=== PATIENT | male | born 1955 | race Caucasian/White ===

== ENCOUNTER 2022-03-11 05:50 | Inpatient (IN) | payer OTHER ==
[~2022-03-11] VITALS: Ht 167.6 cm; Wt 50.8 kg
--- NOTE | 2022-03-11 05:58 | NUR ---
RT NOTE LATE ENTRY Pt rec'd trached on [facility] vent on AC mode settings given from fire dept. Pt shows no signs of resp distress or sob. Pt sx'd for thick mod amt of pale yellow secretions. Alarms are set and audible. Ambu bag at bedside. Vent plugged into red outlet. Addendum: 03/11/22 at 0622 by DAVION ELIZALDE RT Amended: Links added.
--- NOTE | 2022-03-11 05:59 | NUR ---
ARIANE FROM [facility] C/O HYPERGLYCEMIA BS OF 500 TAKEN 20 MINS AGO. PT AWAKE AND RESPONSIVE. TRACH DEPENDANT; RT AT PT'S BEDSIDE. VENT SETTINGS AC VT: FIO2 35, VT 45, PEEP +5. GTUBE PEG INTACT. F/C DRAINING URINE. CONNECTED PT TO POX AND MONITOR. SAFETY MEASURES IN PLACE.
--- NOTE | 2022-03-11 06:07 | NUR ---
IV ESTABLISHED LFA #20G S/L PATENT AND INTACT
--- NOTE | 2022-03-11 06:08 | NUR ---
DR. FRANCO GUY AT PT'S BEDSIDE
--- NOTE | 2022-03-11 06:15 | NUR ---
URINE COLLECTED VIA F/C AND SENT TO LAB
--- NOTE | 2022-03-11 06:27 | NUR ---
COVID SWAB SENT TO LAB
--- NOTE | 2022-03-11 06:28 | NUR ---
HEEL EDGE INKER MACHINE AT BEDSIDE
[2022-03-11 06:37] LABS: BASOPHILS # (AUTO) 0.1 K/uL (0.0-0.2); BASOPHILS % (AUTO) 1.2 % (0.0-2.0); HEMATOCRIT 28 % (39-51); HEMOGLOBIN 8.8 g/dL (13.5-17.5); LYMPHOCYTES % (AUTO) 15.5 % (20.0-44.0); MEAN CORPUSCULAR HGB CONC 32 g/dl (31.0-36.0); MEAN CORPUSCULAR VOLUME 95 fL (80-96); MONOCYTES # (AUTO) 0.4 K/uL (0.1-1.30); MONOCYTES % (AUTO) 6.5 % (2.0-12.0); NEUTROPHILS # (AUTO) 4.8 K/uL (1.8-8.9); NEUTROPHILS % (AUTO) 74.8 % (43.0-81.0); PLATELET COUNT (AUTO) 443 K/uL (150-450); RED BLOOD CELL COUNT(AUTO) 2.95 MIL/uL (4.5-6.0); WHITE BLOOD COUNT (AUTO) 6.5 K/uL (4.3-11.0)
--- NOTE | 2022-03-11 06:53 | NUR ---
LAYOUT INSPECTOR AT PT'S BEDSIDE
[2022-03-11 06:58] LABS: ALANINE AMINOTRANSFERASE 53 U/L (12-78); ALBUMIN 2.2 g/dL (3.4-5.0); ALKALINE PHOSPHATASE 146 U/L (46-116); ASPARTATE AMINOTRANSFERASE 33 U/L (15-37); BILIRUBIN,DIRECT 0.3 mg/dL (0.0-0.2); BILIRUBIN,TOTAL 0.7 mg/dL (0.2-1.0); CALCIUM, SERUM 8.5 mg/dL (8.5-10.1); CARBON DIOXIDE 29 mmol/L (21-32); CHLORIDE 104 mmol/L (98-107); CREATININE 1.6 mg/dL (0.6-1.3); POTASSIUM 4.5 mmol/L (3.5-5.1); SODIUM SERUM 136 mmol/L (136-145); TOTAL PROTEIN, SERUM 6.5 g/dL (6.4-8.2); UREA NITROGEN, BLOOD 42 mg/dL (7-18)
--- NOTE | 2022-03-11 07:06 | NUR ---
CRITICAL RESULT BS 357. REPORT RECEIVE FROM [employer].
[2022-03-11 07:07] LABS: GLUCOSE 357 mg/dL (74-106)
--- NOTE | 2022-03-11 07:08 | NUR ---
DR BERG MADE AWARE OF THE RESULT.
[2022-03-11 07:19] LABS: BILIRUBIN,URINE NEGATIVE (NEGATIVE); COLOR,URINE YELLOW (YELLOW); LEUKOCYTE ESTERASE ,URINE NEGATIVE (NEGATIVE); NITRITE, URINE NEGATIVE (NEGATIVE); PROTEIN,URINE 2+ mg/dl (NEGATIVE); UGLUCOSE 2+ mg/dL (NEGATIVE); UROBILINOGEN,URINE 0.2 EU/dL (0.2)
[2022-03-11 07:46] LABS: BACTERIA,URINE Rare /HPF (None Seen); SQUAMOUS EPITHELIAL CELL,UR Moderate /HPF (None Seen); URINE AMORPHOUS PHOSPHATES Moderate /HPF (None Seen); WBC,URINE 0-2 /HPF (0-3)
[2022-03-11] MEDS ORDERED: LORAZEPAM INJ 2 MG/ML VIAL IV ONE ×2 (08:00→13:30)
--- NOTE | 2022-03-11 08:00 | NUR ---
RT AT BEDSIDE; INFORMED RN THAT PT'S RESP RATE IS AT 35-40. DR BERG MADE AWARE W/ ORDER OF ATIVAN 1MG, ORDER IS READ BACK AND VERIFIED.
[2022-03-11] MEDS ORDERED: LORAZEPAM INJ 2 MG/ML VIAL ONE ×2 (08:02→13:07)
[2022-03-11] MEDS ORDERED: FUROSEMIDE 40 MG/4 ML VIAL ONE ×2 (08:09→13:07)
[2022-03-11] MEDS ORDERED: GLYB5TAB7 GT (08:10)
[2022-03-11] MEDS ORDERED: PANT40TA2 GT (08:10)
[2022-03-11] MEDS ORDERED: DILT240T12 GT (08:10)
[2022-03-11] MEDS ORDERED: KRIL1CAP GT (08:10)
[2022-03-11] MEDS ORDERED: IPRA4AER IH (08:10)
[2022-03-11] MEDS ORDERED: ASPI-1169 GT (08:10)
[2022-03-11] MEDS ORDERED: ATOR80TA GT (08:10)
[2022-03-11] MEDS ORDERED: METF-442 GT (08:10)
[2022-03-11] MEDS ORDERED: QUET25TA GT (08:10)
[2022-03-11] MEDS ORDERED: NUT.237L31 GT (08:10)
[2022-03-11] MEDS ORDERED: CARV3.122 GT (08:10)
[2022-03-11] MEDS ORDERED: CLOP75TA15 GT (08:10)
[2022-03-11] MEDS ORDERED: FERR325T23 GT (08:10)
[2022-03-11] MEDS ORDERED: BENA20TA9 GT (08:10)
[2022-03-11] MEDS ORDERED: CHLO473M3 MM (08:10)
[2022-03-11] MEDS ORDERED: AMIO200T5 GT (08:10)
--- NOTE | 2022-03-11 08:16 | NUR ---
RESP RATE CURRENTLT AT 25, NO RESP DISTRESS. TRACH SUCTION DONE PRN, NO ASPIRATE NOTED.
[2022-03-11] MEDS ORDERED: FUROSEMIDE 40 MG/4 ML VIAL IV ONE ×2 (08:30→13:30)
--- NOTE | 2022-03-11 08:45 | NUR ---
MOVE SHEET SUBMITTED.
--- NOTE | 2022-03-11 10:03 | NUR ---
PER ESTHER, AUTH#[id number] TO ADMIT PATIENT
--- NOTE | 2022-03-11 12:34 | NUR ---
[facility] CALLED BUSINESS DATA ANALYST PAGED.
[2022-03-11] MEDS ORDERED: IOHEXOL-350 100 ML VIAL IV ONE (13:22)
[2022-03-11] MEDS ORDERED: IV NS 0.9% 250 ML IV ONE (13:22)
[2022-03-11] MEDS ORDERED: CT SWABBABLE VALVE TRANS SET 1 EA INFUS.SET MC ONE (13:22)
--- NOTE | 2022-03-11 13:52 | NUR ---
CALLED NURSE JANE FOR MIDLINE
--- NOTE | 2022-03-11 15:33 | NUR ---
DASIA FROM [facility] [phone] HAVE NO BED AVAILABLE BUT WILL CONTACT US WHEN ONE IS READY.
--- NOTE | 2022-03-11 15:37 | NUR ---
BED 116-2
--- NOTE | 2022-03-11 16:03 | NUR ---
REPORT GIVEN TO INES ANGELES RN FOR ALEXIS
--- NOTE | 2022-03-11 16:30 | NUR ---
ADMISSION RN NOTES PATIENT RECEIVED VIA GURNEY FROM ED, ALERT BUT NON VERBAL, CAN ONLY UNDERSTAND MALAY. ON VENT SETTING, TOLERATING WELL, FAMILY AT THE BEDSIDE TO TRANSLATE. DENIES ANY PAIN AT THIS MOMENT, NOTED WHEN CLEANING THE PATIENT, PATIENT TRIED PULLING OUT TRACH AND GT, ORDERED BILATERAL WRIST SOFT RESTRAINT, EXPLAINED TO THE FAMILY AT THE BEDSIDE, CONFIRMED UNDERSTANDING. GT NOTED PATENT AND INTACT. NOTED LEFT WRIST NOTED PATENT AND INTACT, FLUSHES WELL. MIDLINE INSERTED AT JACQUES, OK TO USED PER MIDLINE NURSE, FLUSHES WELL. DUE LASIX GIVEN. NOTED BLOOD SUGAR 247 MG/DL. NOTED WITH F/C PATENT AND INTACT, DRAINING CLEAR YELLOW URINE. NOTED OPEN WOUND ON PENIS AREA, SACRUM, UPPER BACK AND LEFT LOWER LEG, WOUND CARE CONSULT PLACED, COVERED WITH MEPILEX. NOTED WITH BLE +2 PITTING EDEMA AND SCROTAL EDEMA. ORIENTED TO THE USE OF CALL LIGHT. BED IN LOWEST POSITION. SAFETY MEASURES IN PLACED. ENDORSED TO AG RUELAS FOR ALEXIS.
--- NOTE | 2022-03-11 16:34 | NUR ---
TRANSFERRED TO BED 116 IN STABLE CONDITION
[2022-03-11] MEDS: FUROSEMIDE 100 MG/10 ML VIAL IV SCH ×2 (18:05→20:59)
[2022-03-11] MEDS ORDERED: DEXTROSE 50%-WATER 50 ML DISP.SYRIN IV PRN (18:30)
--- NOTE | 2022-03-11 18:45 | NUR ---
NISHANT FROM [facility] IS AT CAPACITY AT THIS TIME.
--- NOTE | 2022-03-11 19:30 | NUR ---
RN NOTE PATIENT IN BED, AO X 2-3, NON VERBAL, UNDERSTANDS PERSIAN ONLY, FAMILY AT BEDSIDE. PT IN NO ACUTE DISTRESS, ON TRACH TO MECHANICAL VENT WITH PRESCRIBED SETTINGS, SATURATION AT 97%, SR ON THE MONITOR, HR IS 97. JACQUES MIDLINE PATENT AND FLUSHING WELL. GTUBE IN PLACE, CLAMPED, PATIÑO CATHETER DRAINING TO A CLEAR, YELLOW OUTPUT. SAFETY MEASURES IN PLACE, BED IS LOCKED AND AT LOWEST POSITION, HOB ELEVATED, CALL LIGHT WITHIN REACH OF PATIENT. WILL CONT TO MONITOR AND REASSESS.
[2022-03-11 20:00] VITALS: BP 168/92
[2022-03-11] MEDS: ATORVASTATIN 40 MG TABLET PO SCH (21:57)
--- NOTE | 2022-03-11 22:50 | NUR ---
RN NOTE TELEPHONE CALL FROM NISHANT OF [facility], VERIFIED IF FAMILY STILL WANTS TO BE TRANSFERRED, ADVISED HER YES PER ANGELIQUE, PT'S DAUGHTER. NIHSANT SAID TRANSFER MIGHT NOT HAPPEN TONIGHT, BUT OBTAINED PRIMARY MD'S CONTACT FOR PEER TO PEER.
[2022-03-11] MEDS: GLUCERNA 1.5 1,000 ML BOTTLE GT SCH (23:05)
[2022-03-12] VITALS: BP 144/90
[2022-03-12] MEDS: HYDROCODONE/APAP 5/325MG TABLET PO PRN (00:45)
[2022-03-12] MEDS: FUROSEMIDE 100 MG/10 ML VIAL IV SCH (00:46)
[2022-03-12] MEDS: BLOOD SUGAR DIAGNOSTIC 1 EACH STRIP IN SCH ×4 (00:56→17:06)
[2022-03-12] MEDS: INSULIN REGULAR, HUMAN 100 UNIT/ML 3 ML VIAL SQ PRN ×4 (00:57→17:07)
[2022-03-12 04:00] VITALS: BP 149/77
[2022-03-12 07:18] LABS: BASOPHILS # (AUTO) 0.1 K/uL (0.0-0.2); BASOPHILS % (AUTO) 1.1 % (0.0-2.0); EOSINOPHILS % (AUTO) 0.9 % (0.0-6.0); HEMATOCRIT 25 % (39-51); HEMOGLOBIN 8.3 g/dL (13.5-17.5); LYMPHOCYTES # (AUTO) 1.5 K/uL (0.8-4.8); LYMPHOCYTES % (AUTO) 15.1 % (20.0-44.0); MEAN CORPUSCULAR HGB CONC 33 g/dl (31.0-36.0); MEAN CORPUSCULAR VOLUME 92 fL (80-96); MONOCYTES # (AUTO) 0.8 K/uL (0.1-1.30); MONOCYTES % (AUTO) 8.3 % (2.0-12.0); NEUTROPHILS # (AUTO) 7.4 K/uL (1.8-8.9); NEUTROPHILS % (AUTO) 74.6 % (43.0-81.0); PLATELET COUNT (AUTO) 444 K/uL (150-450); RED BLOOD CELL COUNT(AUTO) 2.72 MIL/uL (4.5-6.0); WHITE BLOOD COUNT (AUTO) 9.9 K/uL (4.3-11.0)
[2022-03-12] MEDS ORDERED: PANTOPRAZOLE 40 MG TABLET.DR PO SCH ×2 (07:30→09:00)
[2022-03-12 08:00] VITALS: BP 152/108
[2022-03-12 08:04] LABS: CALCIUM, SERUM 9.3 mg/dL (8.5-10.1); CREATININE 1.7 mg/dL (0.6-1.3); MAGNESIUM 1.7 mg/dL (1.8-2.4); POTASSIUM 3.2 mmol/L (3.5-5.1)
[2022-03-12] MEDS: ASPIRIN 81 MG TAB.CHEW GT SCH (08:48)
[2022-03-12] MEDS: CHLORHEXIDINE GLUCONATE 15 ML UDC MM SCH ×2 (08:48→16:44)
[2022-03-12] MEDS: FERROUS SULFATE (325 MG) 325 MG/TAB TABLET GT SCH (08:49)
[2022-03-12] MEDS: CARVEDILOL 3.125 MG TABLET GT SCH ×2 (08:49→16:44)
[2022-03-12] MEDS: DILTIAZEM HCL CD 240 MG PO SCH (08:49)
[2022-03-12] MEDS: AMIODARONE HCL 200 MG TABLET GT SCH (08:49)
[2022-03-12] MEDS: QUETIAPINE FUMARATE 25 MG TABLET GT SCH ×2 (08:49→16:44)
[2022-03-12] MEDS: CLOPIDOGREL BISULFATE 75 MG TABLET GT SCH (08:49)
[2022-03-12] MEDS: glyBURIDE 5 MG TABLET GT SCH ×2 (08:49→16:44)
[2022-03-12] MEDS: Z GUARD REMEDY 4 OZ OINT TP PRN (08:50)
[2022-03-12] MEDS: BENAZEPRIL HCL 20 MG TABLET GT SCH (09:06)
[2022-03-12] MEDS: POTASSIUM CL. PREMIX PERIPHER. 50 ML IV SCH ×3 (10:06→12:20)
[2022-03-12] MEDS ORDERED: IV NS 0.9% 250 ML IV PRN (10:30)
[2022-03-12] MEDS: Magnesium 1GM/D5W 100ML PREMIX 100 ML IV SCH ×2 (10:56→12:20)
[2022-03-12 12:00] VITALS: BP 163/99
[2022-03-12] MEDS: ALBUTEROL FS 2.5 MG/0.5 ML VIAL.NEB NEB SCH ×3 (15:20→23:23)
[2022-03-12] MEDS: IPRATROPIUM NEB FS 0.5 MG/2.5 ML AMPUL.NEB NEB SCH ×3 (15:21→23:23)
[2022-03-12] MEDS ORDERED: IPRATROPIUM NEB FS 0.5 MG/2.5 ML AMPUL.NEB NEB PRN (15:30)
[2022-03-12] MEDS ORDERED: ALBUTEROL FS 2.5 MG/0.5 ML VIAL.NEB NEB PRN (15:30)
[2022-03-12 16:00] VITALS: BP 166/94
--- NOTE | 2022-03-12 19:20 | NUR ---
RN NOTE PATIENT IN BED, AO X 2-3, NON VERBAL, UNDERSTANDS TURKMEN ONLY, FAMILY AT BEDSIDE. PT IN NO ACUTE DISTRESS, ON TRACH TO MECHANICAL VENT WITH PRESCRIBED SETTINGS, SATURATION AT 100%, SR ON THE MONITOR, HR IS 95. JACQUES MIDLINE PATENT AND FLUSHING WELL. GTUBE IN PLACE, NO RESIDUAL, RESUMED TUBE FEEDING OF GLUCERNA AT 35 ML/HR. PATIÑO CATHETER DRAINING TO A CLEAR, YELLOW OUTPUT. SAFETY MEASURES IN PLACE, BED IS LOCKED AND AT LOWEST POSITION, HOB ELEVATED, CALL LIGHT WITHIN REACH OF PATIENT. WILL CONT TO MONITOR AND REASSESS.
--- NOTE | 2022-03-12 19:55 | NUR ---
RN NOTE FAMILY REQUESTING FOR MEDS TO CALM PATIENT DOWN AND HELP HIM SLEEP AT NIGHT PATIENT GETS RESTLESS AND TRIES TO PULL OUT TRACH AND GTUBE. DR MENJIVAR NOTIFIED, ORDER RECEIVED FOR SEROQUEL 25 MG HS.
[2022-03-12 20:00] VITALS: BP 156/94
[2022-03-12] MEDS: ATORVASTATIN 40 MG TABLET PO SCH (22:07)
[2022-03-12] MEDS: QUETIAPINE FUMARATE 25 MG TABLET PO SCH (22:07)
[2022-03-12] MEDS: GLUCERNA 1.5 1,000 ML BOTTLE GT SCH (22:22)
[2022-03-13] VITALS: BP 145/79
[2022-03-13] MEDS: BLOOD SUGAR DIAGNOSTIC 1 EACH STRIP IN SCH ×4 (00:32→17:46)
[2022-03-13] MEDS: INSULIN REGULAR, HUMAN 100 UNIT/ML 3 ML VIAL SQ PRN ×4 (00:34→18:29)
[2022-03-13] MEDS: ALBUTEROL FS 2.5 MG/0.5 ML VIAL.NEB NEB SCH ×5 (03:44→19:42)
[2022-03-13] MEDS: IPRATROPIUM NEB FS 0.5 MG/2.5 ML AMPUL.NEB NEB SCH ×5 (03:44→19:42)
[2022-03-13 04:00] VITALS: BP 147/82
--- NOTE | 2022-03-13 07:15 | NUR ---
RN NOTE PATIENT IN BED, AO X 2-3, NON VERBAL, UNDERSTANDS ESTONIAN . PT IN NO ACUTE DISTRESS, ON TRACH TO MECHANICAL VENT WITH PRESCRIBED SETTINGS, SATURATION AT 100%, SR ON THE MONITOR, HR IS 95. JACQUES MIDLINE PATENT AND FLUSHING WELL. GTUBE IN PLACE, NO RESIDUAL, RESUMED TUBE FEEDING OF GLUCERNA AT 35 ML/HR. PATIÑO CATHETER DRAINING TO A CLEAR, YELLOW OUTPUT. SAFETY MEASURES IN PLACE, BED IS LOCKED AND AT LOWEST POSITION, HOB ELEVATED, CALL LIGHT WITHIN REACH OF PATIENT. WILL CONT TO MONITOR AND REASSESS.
[2022-03-13 07:59] LABS: BASOPHILS # (AUTO) 0.1 K/uL (0.0-0.2); BASOPHILS % (AUTO) 0.5 % (0.0-2.0); EOSINOPHILS % (AUTO) 0.5 % (0.0-6.0); HEMATOCRIT 25 % (39-51); HEMOGLOBIN 8.1 g/dL (13.5-17.5); LYMPHOCYTES # (AUTO) 1.5 K/uL (0.8-4.8); MEAN CORPUSCULAR HGB CONC 33 g/dl (31.0-36.0); MEAN CORPUSCULAR VOLUME 93 fL (80-96); MONOCYTES # (AUTO) 0.6 K/uL (0.1-1.30); MONOCYTES % (AUTO) 5.6 % (2.0-12.0); NEUTROPHILS # (AUTO) 8.7 K/uL (1.8-8.9); NEUTROPHILS % (AUTO) 79.4 % (43.0-81.0); PLATELET COUNT (AUTO) 451 K/uL (150-450); RED BLOOD CELL COUNT(AUTO) 2.68 MIL/uL (4.5-6.0); WHITE BLOOD COUNT (AUTO) 10.9 K/uL (4.3-11.0)
[2022-03-13 08:00] VITALS: BP 139/88
[2022-03-13 08:26] LABS: ALBUMIN 2.6 g/dL (3.4-5.0); BILIRUBIN,TOTAL 0.6 mg/dL (0.2-1.0); CALCIUM, SERUM 9.1 mg/dL (8.5-10.1); CREATININE 1.9 mg/dL (0.6-1.3); MAGNESIUM 2.2 mg/dL (1.8-2.4); PHOSPHORUS 4.3 mg/dL (2.5-4.9); POTASSIUM 3.1 mmol/L (3.5-5.1); TOTAL PROTEIN, SERUM 6.7 g/dL (6.4-8.2)
[2022-03-13] MEDS: FERROUS SULFATE (325 MG) 325 MG/TAB TABLET GT SCH (09:24)
[2022-03-13] MEDS: glyBURIDE 5 MG TABLET GT SCH ×2 (09:24→17:45)
[2022-03-13] MEDS: ASPIRIN 81 MG TAB.CHEW GT SCH (09:24)
[2022-03-13] MEDS: DILTIAZEM HCL CD 240 MG PO SCH (09:25)
[2022-03-13] MEDS: AMIODARONE HCL 200 MG TABLET GT SCH (09:25)
[2022-03-13] MEDS: BENAZEPRIL HCL 20 MG TABLET GT SCH (09:26)
[2022-03-13] MEDS: CARVEDILOL 3.125 MG TABLET GT SCH ×2 (09:26→17:45)
[2022-03-13] MEDS: CLOPIDOGREL BISULFATE 75 MG TABLET GT SCH (09:26)
[2022-03-13] MEDS: QUETIAPINE FUMARATE 25 MG TABLET GT SCH ×2 (09:27→17:46)
[2022-03-13] MEDS: CHLORHEXIDINE GLUCONATE 15 ML UDC MM SCH ×2 (09:28→17:46)
[2022-03-13] MEDS: FUROSEMIDE 40 MG/4 ML VIAL IV SCH ×2 (09:34→17:46)
[2022-03-13] MEDS: PANTOPRAZOLE 40 MG/PACK PACK GT SCH (09:35)
[2022-03-13] MEDS: POTASSIUM CL. PREMIX PERIPHER. 50 ML IV SCH ×3 (10:32→12:48)
[2022-03-13 12:00] VITALS: BP 137/83
[2022-03-13 16:00] VITALS: BP 123/71
--- NOTE | 2022-03-13 19:36 | NUR ---
RN NOTE PATIENT IN BED, AO X 2-3, NON VERBAL, . PT IN NO ACUTE DISTRESS, ON TRACH TO MECHANICAL VENT WITH PRESCRIBED SETTINGS, SATURATION AT 100%, SR ON THE MONITOR, HR IS 95. JACQUES MIDLINE PATENT AND FLUSHING WELL. GTUBE IN PLACE, NO RESIDUAL, TUBE FEEDING HELD AT 1700. PATIÑO CATHETER DRAINING TO A CLEAR, YELLOW OUTPUT. SAFETY MEASURES IN PLACE, BED IS LOCKED AND AT LOWEST POSITION, HOB ELEVATED, CALL LIGHT WITHIN REACH OF PATIENT.ENDORSED TO FIELD SERVICE COORDINATOR RN FOR ALEXIS
[2022-03-13 20:00] VITALS: BP 123/75
[2022-03-13] MEDS: ATORVASTATIN 40 MG TABLET PO SCH (21:57)
[2022-03-13] MEDS: QUETIAPINE FUMARATE 25 MG TABLET PO SCH (21:57)
--- NOTE | 2022-03-13 23:25 | NUR ---
ELEMENTARY ART TEACHER OPENING NOTE PT RECEIVED IN BED, AWAKE, NON-VERBAL, BUT ABLE TO MOUTH WORDS; MAINLY PALESTINIAN-SPEAKING. PT ON TRACH WITH SHILEY #8, AC 20, TV 450, FIO2 35%, PEEP 5; WITH CURRENT O2SAT OF 100%; NO S/S OF RESP DISTRESS, NO SOB OR COUGH, NON-LABORED AND EQUAL BREATHING. PT ATTACHED TO EXTERNAL MONITOR, SR WITH HR OF 83. PATIÑO INTACT AND PATENT, DRAINING CLEAR AND YELLOW URINE. PT NOTED TO HAVE BILATERAL SOFT WRIST RESTRAINTS; NO SIGNS OF IMPAIRED SKIN OR CIRCULATION; WILL PROVIDE PT WITH RELEASE OF RESTRAINTS AND HYGIENE. JACQUES MIDLINE INTACT AND PATENT, FLUSHES EASILY WITH NO RESISTANCE, NO MEDS/FLUIDS INFUSING THROUGH IT. BED IN LOWEST POSITION, CALL LIGHT WITHIN REACH, SIDE RAILS UP X3. WILL CONTINUE TO MONITOR THROUGHOUT THE NIGHT.
[2022-03-14] VITALS: BP 127/69
[2022-03-14] MEDS: IPRATROPIUM NEB FS 0.5 MG/2.5 ML AMPUL.NEB NEB SCH ×7 (00:02→23:09)
[2022-03-14] MEDS: ALBUTEROL FS 2.5 MG/0.5 ML VIAL.NEB NEB SCH ×7 (00:02→23:09)
[2022-03-14] MEDS: BLOOD SUGAR DIAGNOSTIC 1 EACH STRIP IN SCH ×4 (00:29→18:19)
[2022-03-14] MEDS: INSULIN REGULAR, HUMAN 100 UNIT/ML 3 ML VIAL SQ PRN ×4 (00:32→18:21)
[2022-03-14 04:00] VITALS: BP 139/85
[2022-03-14 06:42] LABS: BASOPHILS # (AUTO) 0.1 K/uL (0.0-0.2); BASOPHILS % (AUTO) 0.7 % (0.0-2.0); EOSINOPHILS % (AUTO) 2.9 % (0.0-6.0); HEMATOCRIT 23 % (39-51); HEMOGLOBIN 7.6 g/dL (13.5-17.5); LYMPHOCYTES # (AUTO) 1.2 K/uL (0.8-4.8); LYMPHOCYTES % (AUTO) 13.6 % (20.0-44.0); MEAN CORPUSCULAR HGB CONC 33 g/dl (31.0-36.0); MEAN CORPUSCULAR VOLUME 94 fL (80-96); MONOCYTES # (AUTO) 0.6 K/uL (0.1-1.30); MONOCYTES % (AUTO) 7.1 % (2.0-12.0); NEUTROPHILS # (AUTO) 6.6 K/uL (1.8-8.9); NEUTROPHILS % (AUTO) 75.7 % (43.0-81.0); PLATELET COUNT (AUTO) 296 K/uL (150-450); RED BLOOD CELL COUNT(AUTO) 2.47 MIL/uL (4.5-6.0); WHITE BLOOD COUNT (AUTO) 8.7 K/uL (4.3-11.0)
--- NOTE | 2022-03-14 06:50 | NUR ---
EMPLOYMENT PROGRAM REPRESENTATIVE CLOSING NOTE PT REMAINS IN BED, ASLEEP BUT EASILY AROUSABLE, NON-VERBAL, BUT ABLE TO MOUTH WORDS AND NOD HEAD TO YES OR NO QUESTIONS; MAINLY AFGHAN-SPEAKING. PT REMAINS ON SAME VENT SETTINGS; TOLERATED VENT SETTINGS WELL WITH O2SAT RANGING FROM 97%- 100%; NO S/S OF RESP DISTRESS, NO SOB OR COUGH, NON-LABORED AND EQUAL BREATHING. PT ATTACHED TO EXTERNAL MONITOR, SR WITH HR RANGING FROM 81- 83. PATIÑO INTACT AND PATENT, DRAINING CLEAR AND YELLOW URINE. BILATERAL SOFT WRIST RESTRAINTS REMAIN IN PLACE; NO SIGNS OF IMPAIRED SKIN OR CIRCULATION; PROVIDED PT WITH RELEASE OF RESTRAINTS AND HYGIENE. JACQUES MIDLINE INTACT AND PATENT, FLUSHES EASILY WITH NO RESISTANCE, NO MEDS/FLUIDS INFUSING THROUGH IT. ALL DUE MEDS ADMINISTERED DURING THE NIGHT. BED IN LOWEST POSITION, CALL LIGHT WITHIN REACH, SIDE RAILS UP X3. WILL ENDORSE TO DAYSHIFT NURSE TO CONTINUE CARE.
[2022-03-14 06:56] LABS: ALBUMIN 2.4 g/dL (3.4-5.0); BILIRUBIN,TOTAL 0.8 mg/dL (0.2-1.0); CALCIUM, SERUM 8.6 mg/dL (8.5-10.1); CREATININE 1.7 mg/dL (0.6-1.3); MAGNESIUM 2.2 mg/dL (1.8-2.4); PHOSPHORUS 4.7 mg/dL (2.5-4.9); POTASSIUM 3.8 mmol/L (3.5-5.1); TOTAL PROTEIN, SERUM 6.4 g/dL (6.4-8.2)
--- NOTE | 2022-03-14 07:00 | NUR ---
CENTRIFUGAL DRIER OPERATOR OPENING NOTE PT RECEIVED IN BED, AWAKE, NON-VERBAL, BUT ABLE TO MOUTH WORDS; MAINLY PRYDEINIG-SPEAKING. PT ON TRACH WITH SHILEY #8, AC 20, TV 450, FIO2 35%, PEEP 5; WITH CURRENT O2SAT OF 100%; NO S/S OF RESP DISTRESS, NO SOB OR COUGH, NON-LABORED AND EQUAL BREATHING. PT ATTACHED TO EXTERNAL MONITOR, SR WITH HR OF 77 . PATIÑO INTACT AND PATENT, DRAINING CLEAR AND YELLOW URINE. PT NOTED TO HAVE BILATERAL SOFT WRIST RESTRAINTS; NO SIGNS OF IMPAIRED SKIN OR CIRCULATION; WILL PROVIDE PT WITH RELEASE OF RESTRAINTS AND HYGIENE. JACQUES MIDLINE INTACT AND PATENT, FLUSHES EASILY WITH NO RESISTANCE,. BED IN LOWEST POSITION, CALL LIGHT WITHIN REACH, SIDE RAILS UP X3. WILL CONTINUE TO MONITOR THROUGHOUT
[2022-03-14 08:00] VITALS: BP 136/73
[2022-03-14] MEDS: CHLORHEXIDINE GLUCONATE 15 ML UDC MM SCH ×2 (10:01→17:08)
[2022-03-14] MEDS: ASPIRIN 81 MG TAB.CHEW GT SCH (10:02)
[2022-03-14] MEDS: glyBURIDE 5 MG TABLET GT SCH ×2 (10:02→17:46)
[2022-03-14] MEDS: FUROSEMIDE 40 MG/4 ML VIAL IV SCH ×2 (10:02→17:05)
[2022-03-14] MEDS: AMIODARONE HCL 200 MG TABLET GT SCH (10:02)
[2022-03-14] MEDS: PANTOPRAZOLE 40 MG/PACK PACK GT SCH (10:02)
[2022-03-14] MEDS: DILTIAZEM HCL CD 240 MG PO SCH (10:03)
[2022-03-14] MEDS: FERROUS SULFATE (325 MG) 325 MG/TAB TABLET GT SCH (10:03)
[2022-03-14] MEDS: BENAZEPRIL HCL 20 MG TABLET GT SCH (10:03)
[2022-03-14] MEDS: QUETIAPINE FUMARATE 25 MG TABLET GT SCH ×2 (10:04→17:08)
[2022-03-14] MEDS: CLOPIDOGREL BISULFATE 75 MG TABLET GT SCH (10:04)
[2022-03-14] MEDS: CARVEDILOL 3.125 MG TABLET GT SCH ×2 (10:04→17:07)
--- NOTE | 2022-03-14 11:36 | NUR ---
WOUND CARE CONSULT: PT PRESENTS WITH MULTIPLE WOUNDS INCLUDING PENIS, RT GROIN CLOSED INCISION WITH SOME WEEPING, SACRAL AND BACK UNSTAGEABLE PRESSURE ULCERS AND LEFT LOWER LEG DRY WOUND, ALL PRESENT ON ADMISSION.DR ANNE CALLED FOR SURGICAL CONSULT. RECOMMENDATIONS MADE FOR SKIN PROTECTION AND DISCUSSED WITH NURSING STAFF. MD IN AGREEMENT WITH PLAN OF CARE.
[2022-03-14 12:00] VITALS: BP 126/74
[2022-03-14] MEDS: THERAHONEY GEL 1.5 OZ TUBE TP SCH (15:50)
[2022-03-14 16:00] VITALS: BP 123/76
[2022-03-14] MEDS: GLUCERNA 1.5 1,000 ML BOTTLE GT SCH (18:19)
--- NOTE | 2022-03-14 19:10 | NUR ---
RN NOTE PATIENT IN BED, AO X 2-3, MOUTH WORD, . PT IN NO ACUTE DISTRESS, ON TRACH TO MECHANICAL VENT WITH PRESCRIBED SETTINGS, SATURATION AT 100%, SR ON THE MONITOR, JACQUES MIDLINE PATENT AND FLUSHING WELL. GTUBE IN PLACE, NO RESIDUAL, GT GLUCERNA RUNNING 55 ML/HR CONTINUOUS. PATIÑO CATHETER DRAINING TO A CLEAR, YELLOW OUTPUT. SAFETY MEASURES IN PLACE, BED IS LOCKED AND AT LOWEST POSITION, HOB ELEVATED, CALL LIGHT WITHIN REACH OF PATIENT.CONTINUE BILATERAL SOFT RESTRAIN, SKIN AND CIRCULATION CHECKED WITHIN NORMAL. ENDORSED TO SINGLE NEEDLE TUFTING MACHINE OPERATOR RN FOR ALEXIS
--- NOTE | 2022-03-14 19:25 | NUR ---
LIFESTYLE BLOCK FARMER OPEN NOTE: ALERT AND ORIENTED TO NAME. REORIENTED TO TIME AND PLACE. MOUTHS WORDS. TRACH WITH VENT AT PRESCRIBED SETTINGS. GT IN PLACE PATENT. LEFT UPPER ARM MIDLINE IN PLACE. NO S/S OF COMPLICATIONS. ON TELE MONITOR WITH A READING OF SINUS RHYTHM. BILATERAL SOFT WRIST RESTRAINTS IN PLACE SKIN IS WITHIN NORMAL, CIRCULATION WITHIN NORMAL. WOUNDS WITH CLEAN DRESSINGS ON. NO S/S OF COMPLICATIONS. HOB ELEVATED SEMI FOWLERS POSITION, BILATERAL HALF SIDE RAILS UPX2. BED IS LOCKED, IN LOW POSITION, EXIT ALARM ON. CALL LIGHT IN REACH.
[2022-03-14] MEDS: ATORVASTATIN 40 MG TABLET PO SCH (22:31)
[2022-03-14] MEDS: QUETIAPINE FUMARATE 25 MG TABLET PO SCH (22:31)
[2022-03-15] MEDS: BLOOD SUGAR DIAGNOSTIC 1 EACH STRIP IN SCH ×4 (00:28→17:26)
[2022-03-15] MEDS: INSULIN REGULAR, HUMAN 100 UNIT/ML 3 ML VIAL SQ PRN ×4 (00:34→17:25)
[2022-03-15 01:11] VITALS: BP 129/69
[2022-03-15 04:00] VITALS: BP 143/76
[2022-03-15] MEDS: ALBUTEROL FS 2.5 MG/0.5 ML VIAL.NEB NEB SCH ×6 (04:07→23:45)
[2022-03-15] MEDS: IPRATROPIUM NEB FS 0.5 MG/2.5 ML AMPUL.NEB NEB SCH ×6 (04:07→23:45)
[2022-03-15] MEDS ORDERED: SILVER NITRATE APPLICATOR 1 EA BOX TP PRN (06:00)
[2022-03-15] MEDS ORDERED: LIDOCAINE 1%-EPI 1:100,000 50 ML VIAL IJ ONE (06:00)
--- NOTE | 2022-03-15 06:50 | NUR ---
GI TECHNICIAN CLOSING NOTE: ALERT AND ORIENTED TO NAME. REORIENTED TO TIME AND PLACE. MOUTHS WORDS. TRACH WITH VENT AT PRESCRIBED SETTINGS. GT IN PLACE PATENT. LEFT UPPER ARM MIDLINE IN PLACE. NO S/S OF COMPLICATIONS. ON TELE MONITOR WITH A READING OF SINUS RHYTHM. BILATERAL SOFT WRIST RESTRAINTS IN PLACE SKIN IS WITHIN NORMAL, CIRCULATION WITHIN NORMAL. WOUNDS WITH CLEAN DRESSINGS ON. NO S/S OF COMPLICATIONS. HOB ELEVATED SEMI FOWLERS POSITION, BILATERAL HALF SIDE RAILS UPX2. BED IS LOCKED, IN LOW POSITION, EXIT ALARM ON. CALL LIGHT IN REACH. DENIES PAIN OR DISCOMFORT.
[2022-03-15 07:33] LABS: BASOPHILS % (AUTO) 0.4 % (0.0-2.0); EOSINOPHILS % (AUTO) 2.6 % (0.0-6.0); HEMATOCRIT 26 % (39-51); HEMOGLOBIN 8.2 g/dL (13.5-17.5); LYMPHOCYTES # (AUTO) 1.1 K/uL (0.8-4.8); LYMPHOCYTES % (AUTO) 13.6 % (20.0-44.0); MEAN CORPUSCULAR HGB CONC 32 g/dl (31.0-36.0); MEAN CORPUSCULAR VOLUME 94 fL (80-96); MONOCYTES # (AUTO) 0.5 K/uL (0.1-1.30); MONOCYTES % (AUTO) 6.3 % (2.0-12.0); NEUTROPHILS # (AUTO) 6.2 K/uL (1.8-8.9); NEUTROPHILS % (AUTO) 77.1 % (43.0-81.0); PLATELET COUNT (AUTO) 358 K/uL (150-450); RED BLOOD CELL COUNT(AUTO) 2.73 MIL/uL (4.5-6.0)
[2022-03-15 07:54] LABS: ALBUMIN 2.6 g/dL (3.4-5.0); BILIRUBIN,TOTAL 0.6 mg/dL (0.2-1.0); CALCIUM, SERUM 8.8 mg/dL (8.5-10.1); CREATININE 1.8 mg/dL (0.6-1.3); MAGNESIUM 1.8 mg/dL (1.8-2.4); PHOSPHORUS 3.5 mg/dL (2.5-4.9); TOTAL PROTEIN, SERUM 6.7 g/dL (6.4-8.2)
[2022-03-15 08:00] VITALS: BP 151/84
--- NOTE | 2022-03-15 08:10 | NUR ---
RN OPENING NOTE: ALERT AND ORIENTED TO NAME. REORIENTED TO TIME AND PLACE. MOUTHS WORDS. TRACH WITH VENT AT PRESCRIBED SETTINGS. GT IN PLACE PATENT. LEFT UPPER ARM MIDLINE IN PLACE. NO S/S OF COMPLICATIONS. ON TELE MONITOR. BILATERAL SOFT WRIST RESTRAINTS IN PLACE SKIN IS WITHIN NORMAL, CIRCULATION WITHIN NORMAL. WOUNDS WITH CLEAN DRESSINGS ON. NO S/S OF COMPLICATIONS. HOB ELEVATED SEMI FOWLERS POSITION, BILATERAL HALF SIDE RAILS UPX2. BED IS LOCKED, IN LOW POSITION, EXIT ALARM ON.
[2022-03-15 08:16] LABS: POTASSIUM 2.8 mmol/L (3.5-5.1)
[2022-03-15] MEDS: ASPIRIN 81 MG TAB.CHEW GT SCH (08:24)
[2022-03-15] MEDS: QUETIAPINE FUMARATE 25 MG TABLET GT SCH ×2 (08:24→16:18)
[2022-03-15] MEDS: PANTOPRAZOLE 40 MG/PACK PACK GT SCH (08:24)
[2022-03-15] MEDS: CHLORHEXIDINE GLUCONATE 15 ML UDC MM SCH ×2 (08:24→16:18)
[2022-03-15] MEDS: FERROUS SULFATE (325 MG) 325 MG/TAB TABLET GT SCH (08:24)
[2022-03-15] MEDS: DILTIAZEM HCL CD 240 MG PO SCH (08:25)
[2022-03-15] MEDS: CARVEDILOL 3.125 MG TABLET GT SCH ×2 (08:25→16:18)
[2022-03-15] MEDS: FUROSEMIDE 40 MG/4 ML VIAL IV SCH ×2 (08:25→16:18)
[2022-03-15] MEDS: glyBURIDE 5 MG TABLET GT SCH ×2 (08:25→16:18)
[2022-03-15] MEDS: BENAZEPRIL HCL 20 MG TABLET GT SCH (08:26)
[2022-03-15] MEDS: THERAHONEY GEL 1.5 OZ TUBE TP SCH (08:26)
[2022-03-15] MEDS: CLOPIDOGREL BISULFATE 75 MG TABLET GT SCH (08:26)
[2022-03-15] MEDS: AMIODARONE HCL 200 MG TABLET GT SCH (08:26)
--- NOTE | 2022-03-15 08:30 | NUR ---
RN NOTE RECEIVED CRITICAL 2.[address] CURIEL RECEIVED ORDER FOR 20MEQ POTASSIUM IV. ORDERS PLACED
[2022-03-15] MEDS: POTASSIUM CHLORIDE 10 MEQ/50 ML PREMIXED IVPB FOR PERIPHERAL LINE IV SCH ×2 (09:51→10:59)
[2022-03-15] MEDS ORDERED: POTASSIUM CHLORIDE 20 MEQ POWDER PACKET GT ONE (11:00)
[2022-03-15] MEDS ORDERED: POTASSIUM CHLORIDE 20 MEQ POWDER PACKET PO ONE (11:00)
--- NOTE | 2022-03-15 11:30 | NUR ---
RN NOTE INFORMED DR HEALY REGARDING PLATELET COUNT 23. RECEIVED ORDER FOR 1 PLATELET TRANSFUSION. ORDERS PLACED
[2022-03-15 12:00] VITALS: BP 121/70
[2022-03-15] MEDS: POTASSIUM CL. PREMIX PERIPHER. 50 ML IV SCH ×2 (12:36→13:40)
[2022-03-15 16:00] VITALS: BP 144/84
[2022-03-15] MEDS: GLUCERNA 1.5 1,000 ML BOTTLE GT SCH (16:28)
--- NOTE | 2022-03-15 18:44 | NUR ---
SUPERVISOR FACEPIECE LINE CLOSING NOTE: ALERT AND ORIENTED TO NAME. MOUTHS WORDS. TRACH WITH VENT AT PRESCRIBED SETTINGS. GT IN PLACE PATENT. LEFT UPPER ARM MIDLINE IN PLACE. NO S/S OF COMPLICATIONS. ON TELE MONITOR WITH A READING OF SINUS RHYTHM. BILATERAL SOFT WRIST RESTRAINTS IN PLACE SKIN IS WITHIN NORMAL, CIRCULATION WITHIN NORMAL. WOUNDS WITH CLEAN DRESSINGS ON. NO S/S OF COMPLICATIONS. HOB ELEVATED SEMI FOWLERS POSITION, BILATERAL HALF SIDE RAILS UPX2. BED IS LOCKED, IN LOW POSITION, EXIT ALARM ON. CALL LIGHT IN REACH. DENIES PAIN OR DISCOMFORT.
--- NOTE | 2022-03-15 19:40 | NUR ---
MANAGER BUSINESS SYSTEMS OPENING NOTE: RECEIVED PT ALERT AND ORIENTED X1. MOUTHS WORDS. TRACH WITH VENT AT PRESCRIBED SETTINGS. GT IN PLACE PATENT. LEFT UPPER ARM MIDLINE IN PLACE. NO S/S OF COMPLICATIONS. ON TELE MONITOR. BILATERAL SOFT WRIST RESTRAINTS IN PLACE SKIN IS WITHIN NORMAL, CIRCULATION WITHIN NORMAL. WOUNDS WITH CLEAN DRESSINGS ON. NO S/S OF COMPLICATIONS. HOB ELEVATED SEMI FOWLERS POSITION, BILATERAL HALF SIDE RAILS UPX2. BED IS LOCKED, IN LOW POSITION, BED ALARM ON. WILL CONTINUE TO MONITOR THROUGHOUT THE SHIFT.
[2022-03-15 20:00] VITALS: BP 143/81
[2022-03-15] MEDS: ATORVASTATIN 40 MG TABLET PO SCH (21:21)
[2022-03-15] MEDS: QUETIAPINE FUMARATE 25 MG TABLET PO SCH (21:21)
[2022-03-16] VITALS: BP 146/84
[2022-03-16] MEDS: BLOOD SUGAR DIAGNOSTIC 1 EACH STRIP IN SCH ×5 (00:35→23:36)
[2022-03-16 04:00] VITALS: BP 158/94
[2022-03-16] MEDS: ALBUTEROL FS 2.5 MG/0.5 ML VIAL.NEB NEB SCH ×6 (04:26→23:18)
[2022-03-16] MEDS: IPRATROPIUM NEB FS 0.5 MG/2.5 ML AMPUL.NEB NEB SCH ×6 (04:26→23:18)
[2022-03-16] MEDS: INSULIN REGULAR, HUMAN 100 UNIT/ML 3 ML VIAL SQ PRN ×4 (06:27→23:39)
--- NOTE | 2022-03-16 06:43 | NUR ---
EDITOR MAP CLOSING NOTE: PT AWAKE, ALERT AND ORIENTED X1. MOUTHS WORDS. TRACH WITH VENT AT PRESCRIBED SETTINGS. GT IN PLACE, HOLD FOR NOW DUE TO NPO STATUS FOR SURGERY. LEFT UPPER ARM MIDLINE IN PLACE INTACT AND PATENT WITH NS AT TKO. NO S/S OF COMPLICATIONS. ON TELE MONITOR READING SR AT 82. BILATERAL SOFT WRIST RESTRAINTS IN PLACE SKIN IS WITHIN NORMAL, CIRCULATION WITHIN NORMAL. WOUNDS WITH CLEAN DRESSINGS ON. NO S/S OF COMPLICATIONS. HOB ELEVATED SEMI FOWLERS POSITION, BILATERAL HALF SIDE RAILS UPX2. BED IS LOCKED, IN LOW POSITION, BED ALARM ON. WILL ENDORSE TO AM SHIFT NURSE FOR CONTINUITY OF CARE.
[2022-03-16 08:00] VITALS: BP 172/94
[2022-03-16] MEDS: glyBURIDE 5 MG TABLET GT SCH ×2 (08:53→17:36)
[2022-03-16] MEDS: AMIODARONE HCL 200 MG TABLET GT SCH (08:53)
[2022-03-16] MEDS: CHLORHEXIDINE GLUCONATE 15 ML UDC MM SCH ×2 (08:53→17:35)
[2022-03-16] MEDS: FUROSEMIDE 40 MG/4 ML VIAL IV SCH ×2 (08:53→17:35)
[2022-03-16] MEDS: HYDROCODONE/APAP 5/325MG TABLET PO PRN (08:54)
[2022-03-16] MEDS: ASPIRIN 81 MG TAB.CHEW GT SCH (08:54)
[2022-03-16] MEDS: BENAZEPRIL HCL 20 MG TABLET GT SCH (08:54)
[2022-03-16] MEDS: CARVEDILOL 3.125 MG TABLET GT SCH ×2 (08:54→17:36)
[2022-03-16] MEDS: FERROUS SULFATE (325 MG) 325 MG/TAB TABLET GT SCH (08:54)
[2022-03-16] MEDS: QUETIAPINE FUMARATE 25 MG TABLET GT SCH ×2 (08:54→17:36)
[2022-03-16] MEDS: PANTOPRAZOLE 40 MG/PACK PACK GT SCH (08:55)
[2022-03-16] MEDS: DILTIAZEM HCL CD 240 MG PO SCH (08:55)
[2022-03-16] MEDS: THERAHONEY GEL 1.5 OZ TUBE TP SCH (08:55)
[2022-03-16 10:46] LABS: BASOPHILS # (AUTO) 0.1 K/uL (0.0-0.2); EOSINOPHILS % (AUTO) 2.7 % (0.0-6.0); HEMATOCRIT 26 % (39-51); HEMOGLOBIN 8.6 g/dL (13.5-17.5); LYMPHOCYTES # (AUTO) 1.1 K/uL (0.8-4.8); LYMPHOCYTES % (AUTO) 14.6 % (20.0-44.0); MEAN CORPUSCULAR HGB CONC 33 g/dl (31.0-36.0); MEAN CORPUSCULAR VOLUME 95 fL (80-96); MONOCYTES # (AUTO) 0.4 K/uL (0.1-1.30); MONOCYTES % (AUTO) 5.5 % (2.0-12.0); NEUTROPHILS # (AUTO) 5.7 K/uL (1.8-8.9); NEUTROPHILS % (AUTO) 76.2 % (43.0-81.0); PLATELET COUNT (AUTO) 331 K/uL (150-450); RED BLOOD CELL COUNT(AUTO) 2.79 MIL/uL (4.5-6.0); WHITE BLOOD COUNT (AUTO) 7.5 K/uL (4.3-11.0)
[2022-03-16 10:57] LABS: CALCIUM, SERUM 9.1 mg/dL (8.5-10.1); CREATININE 1.7 mg/dL (0.6-1.3); MAGNESIUM 1.6 mg/dL (1.8-2.4); PHOSPHORUS 3.5 mg/dL (2.5-4.9); POTASSIUM 3.1 mmol/L (3.5-5.1)
[2022-03-16 12:00] VITALS: BP 150/74
[2022-03-16 16:00] VITALS: BP 149/73
--- NOTE | 2022-03-16 19:30 | NUR ---
BIRTHING NURSE OPENING NOTE: RECEIVED PT IN BED, ALERT AND ORIENTED TO NAME. REORIENTED TO TIME AND PLACE. MOUTHS WORDS. TRACH WITH VENT AT PRESCRIBED SETTINGS, TOLERATING WELL. GT IN PLACE, CLAMPED. WILL RESUME AT 2100. LEFT UPPER ARM MIDLINE IN PLACE. PATENT AND INTACT, RUNNING NS TKO. NO S/SX OF COMPLICATIONS. ON TELE MONITOR READS SR WITH HR. BILATERAL SOFT WRIST RESTRAINTS IN PLACE, SKIN IS WITHIN NORMAL, CIRCULATION WITHIN NORMAL. ALL SAFETY MEASURES IN PLACE: HOB ELEVATED SEMI FOWLERS POSITION, BILATERAL HALF SIDE RAILS UPX2 WITH EXTRA PADDING IN PLACE. BED IS LOCKED, IN LOW POSITION, EXIT ALARM ON. CALL LIGHT WITHIN REACH. WILL CONTINUE TO MONITOR.
[2022-03-16 20:00] VITALS: BP 128/71
[2022-03-16] MEDS: ATORVASTATIN 40 MG TABLET PO SCH (21:06)
[2022-03-16] MEDS: QUETIAPINE FUMARATE 25 MG TABLET PO SCH (21:06)
[2022-03-17] VITALS: BP_SYST 119; BP_SYST 138; BP_DIAS 66; BP_DIAS 69
[2022-03-17] MEDS: IPRATROPIUM NEB FS 0.5 MG/2.5 ML AMPUL.NEB NEB SCH ×6 (03:08→23:33)
[2022-03-17] MEDS: ALBUTEROL FS 2.5 MG/0.5 ML VIAL.NEB NEB SCH ×6 (03:08→23:33)
[2022-03-17 04:00] VITALS: BP 132/71
[2022-03-17] MEDS: BLOOD SUGAR DIAGNOSTIC 1 EACH STRIP IN SCH ×3 (05:12→17:24)
[2022-03-17] MEDS: INSULIN REGULAR, HUMAN 100 UNIT/ML 3 ML VIAL SQ PRN ×3 (05:14→17:27)
[2022-03-17 08:00] VITALS: BP 141/67
--- NOTE | 2022-03-17 08:00 | NUR ---
STAKE DRIVER OPENING NOTES ALERT AND ORIENTED TO NAME. REORIENTED TO TIME AND PLACE. MOUTHS WORDS. TRACH WITH VENT AT PRESCRIBED SETTINGS, NO SOB NOTED, NOT IN DISTESS, NO FACIAL GRIMACING NOTED. GT IN PLACE PATENT ON GLUCERNA 1.2 @ 55ML/HR, TOLERATING WELL, NO N/V/D NOTED. LEFT UPPER ARM MIDLINE IN PLACE, PATENT AND INTACT, FLUSHES WELL. ON TELE MONITOR WITH SR 70. BILATERAL SOFT WRIST RESTRAINTS IN PLACE SKIN IS WITHIN NORMAL, CIRCULATION WITHIN NORMAL. WOUNDS WITH CLEAN DRESSINGS ON. NO S/S OF COMPLICATIONS. HOB ELEVATED SEMI FOWLERS POSITION, BILATERAL HALF SIDE RAILS UPX2. BED IS LOCKED, IN LOW POSITION, EXIT ALARM ON.CALL LIGHT WITHIN REACH. PLAN OF CARE ON GOING.
[2022-03-17] MEDS: ASPIRIN 81 MG TAB.CHEW GT SCH (08:59)
--- NOTE | 2022-03-17 09:08 | NUR ---
MUSICAL STRING MAKER NOTES DR. ARENAS CALLED AND INQUIRING ABOUT THE THORACENTESIS WHY IT WAS NOT DONE, NOTED PLAVIX WAS LAST GIVEN ON 03/15/22 @0900H, PRODUCT CONTROL AND LOGISTICS ANALYST MADE AWARE. PER PRODUCT CONTROL AND LOGISTICS ANALYST PLAVIX SHOULD BE HELD FOR 5 DAYS, SHE WILL INFORMED THE DOCTOR. INFORMED DR. ARENAS, PER DR. ARENAS HE WILL TAKE THE RESPONSIBILITY FOR TAPPING THE PATIENT TODAY, PER PRODUCT CONTROL AND LOGISTICS ANALYST THEY NEED A WRITTEN DRVinayak NOTES, DR. ARENAS MADE AWARE. PLAN OF CARE CONTINUED.
[2022-03-17] MEDS: PANTOPRAZOLE 40 MG/PACK PACK GT SCH (09:50)
[2022-03-17] MEDS: QUETIAPINE FUMARATE 25 MG TABLET GT SCH ×2 (09:50→16:58)
[2022-03-17] MEDS: CHLORHEXIDINE GLUCONATE 15 ML UDC MM SCH ×2 (09:50→16:58)
[2022-03-17] MEDS: FUROSEMIDE 40 MG/4 ML VIAL IV SCH ×2 (09:50→16:58)
[2022-03-17] MEDS: BENAZEPRIL HCL 20 MG TABLET GT SCH (09:51)
[2022-03-17] MEDS: FERROUS SULFATE (325 MG) 325 MG/TAB TABLET GT SCH (09:52)
[2022-03-17] MEDS: DILTIAZEM HCL CD 240 MG PO SCH (09:52)
[2022-03-17] MEDS: glyBURIDE 5 MG TABLET GT SCH ×2 (09:52→16:58)
[2022-03-17] MEDS: AMIODARONE HCL 200 MG TABLET GT SCH (09:52)
[2022-03-17] MEDS: THERAHONEY GEL 1.5 OZ TUBE TP SCH (09:53)
[2022-03-17] MEDS: CARVEDILOL 3.125 MG TABLET GT SCH ×2 (09:53→16:59)
--- NOTE | 2022-03-17 10:40 | NUR ---
SHAKER FLATWORK NOTES PATIENT HAD THORACENTESIS ON RIGHT PLEURAL SPACE, NOTED 1050ML PLEURAL FLUID REMOVED YELLOW KARIN URINE, FAMILY AT THE BEDSIDE, INFORMED PATIENT HAD THORACENTESIS. NO BLEEDING NOTED AT THE SITE, VS T 98.O P= 89 RR 20 BP 142/71 02 SAT 98%, NO SHORTNESS OF BREATH NOTED. PLAN OF CARE CONTINUED.
[2022-03-17 12:00] VITALS: BP 142/71
[2022-03-17 16:00] VITALS: BP 133/76
[2022-03-17 17:04] LABS: CALCIUM, SERUM 8.3 mg/dL (8.5-10.1); CREATININE 1.7 mg/dL (0.6-1.3); POTASSIUM 3.2 mmol/L (3.5-5.1)
--- NOTE | 2022-03-17 17:16 | NUR ---
BALLING HEAD TENDER NOTES RECEIVED NEW ORDER FROM MD DEAL TODAY AND BMP ON 03/18/22, NOTED AND CARRIED OUT. POTASSIUM LEVEL TODAY 3.2, PHARMACY NOTIFIED. PLAN ON GOING.
[2022-03-17] MEDS: POTASSIUM CL. PREMIX PERIPHER. 50 ML IV SCH ×3 (17:30→20:13)
--- NOTE | 2022-03-17 18:19 | NUR ---
SUSTAINABILITY COMMUNICATOR CLOSING NOTES ALERT AND ORIENTED TO NAME. REORIENTED TO TIME AND PLACE. MOUTHS WORDS. TRACH WITH VENT AT PRESCRIBED SETTINGS, NO SOB NOTED, NOT IN DISTESS, NO FACIAL GRIMACING NOTED. GT IN PLACE PATENT AND INTACT, TURN OFF GT FEEDING AT 1700H. LEFT UPPER ARM MIDLINE IN PLACE, PATENT AND INTACT, FLUSHES WELL, WITH ON GOING POTASSIUM SUPPLEMENTATION. ON TELE MONITOR WITH SR 83. BILATERAL SOFT WRIST RESTRAINTS IN PLACE SKIN IS WITHIN NORMAL, CIRCULATION WITHIN NORMAL. WOUNDS WITH CLEAN DRESSINGS ON. NO S/S OF COMPLICATIONS. HOB ELEVATED SEMI FOWLERS POSITION, BILATERAL HALF SIDE RAILS UPX2. S/P THORACENTESIS ON RIGHT PLEURAL SPACE, DRESSING NOTED C/D/I NO BLEEDING NOTED, NO S/SX OF INFECTION NOTED. BED IS LOCKED, IN LOW POSITION, EXIT ALARM ON.CALL LIGHT WITHIN REACH. WILL ENDORSE TO NIGHT NURSE FOR ALEXIS.
--- NOTE | 2022-03-17 19:30 | NUR ---
RN OPENING NOTE PT AWAKE AND ALERT. NONVERBAL BUT MAKES GESTURES. RESPIRATIONS EVEN AND UNLABORED ON VENT WITH O2 SAT OF 100%. SR ON PROGRAM DIRECTOR GROUP WORK. BILATERAL SOFT RESTRAINTS IN PLACE. JACQUES MIDLINE INTACT AND RUNNING 10 MEQ OF K. TUBE FEEDING PAUSED TILL 2100. NO ACUTE SIGNS OF DISTRESS. SAFETY PRECAUTIONS IN PLACE. BED LOCKED AND AT LOWEST LEVEL. X2 RAILS UP AND BED ALARM ON. CALL LIGHT WITHIN REACH.
[2022-03-17 20:00] VITALS: BP 131/102
[2022-03-17] MEDS: ATORVASTATIN 40 MG TABLET PO SCH (21:54)
[2022-03-17] MEDS: QUETIAPINE FUMARATE 25 MG TABLET PO SCH (21:54)
[2022-03-18] VITALS: BP 124/94
[2022-03-18] MEDS: INSULIN REGULAR, HUMAN 100 UNIT/ML 3 ML VIAL SQ PRN ×4 (00:09→17:54)
[2022-03-18] MEDS: BLOOD SUGAR DIAGNOSTIC 1 EACH STRIP IN SCH ×4 (00:09→17:55)
[2022-03-18] MEDS: IPRATROPIUM NEB FS 0.5 MG/2.5 ML AMPUL.NEB NEB SCH ×6 (03:30→23:27)
[2022-03-18] MEDS: ALBUTEROL FS 2.5 MG/0.5 ML VIAL.NEB NEB SCH ×6 (03:30→23:27)
[2022-03-18 04:00] VITALS: BP 147/74
--- NOTE | 2022-03-18 06:56 | NUR ---
RN CLOSING NOTE PT AWAKE AND ALERT. PT IS IRRITABLE AND REFUSED LAB DRAW THIS AM. RESPIRATIONS EVEN AND UNLABORED ON VENT WITH O2 SAT OF 100%. SR ON ISSUING OPERATOR. BILATERAL SOFT RESTRAINTS IN PLACE. JACQUES MIDLINE INTACT. TUBE FEEDING RUNNING AT 55 ML/HR X 24 HRS. NO ACUTE SIGNS OF DISTRESS. SAFETY PRECAUTIONS IN PLACE. BED LOCKED AND AT LOWEST LEVEL. X2 RAILS UP AND BED ALARM ON. CALL LIGHT WITHIN REACH.
--- NOTE | 2022-03-18 07:40 | NUR ---
RN OPENING NOTE: PT ALERT AND ORIENTED TO NAME. REORIENTED TO TIME AND PLACE. MOUTHS WORDS. TRACH WITH VENT AT PRESCRIBED SETTINGS. GT IN PLACE PATENT. NO RESIDUAL VOLUME NOTED. LEFT UPPER ARM MIDLINE IN PLACE. NO S/S OF COMPLICATIONS. ON TELE MONITOR CURRENTLY SR 80. PT ON BILATERAL SOFT WRIST RESTRAINTS IN PLACE.NO SKIN OR CIRCULATION ISSUES NOTED AT THIS TIME. HOB ELEVATED SEMI FOWLERS POSITION. SIDE RAILS UP X2. BED LOCKED AND IN LOWEST POSITION. BED ALARM ON.
[2022-03-18 08:00] VITALS: BP 127/72
[2022-03-18] MEDS: ASPIRIN 81 MG TAB.CHEW GT SCH (08:27)
[2022-03-18] MEDS: AMIODARONE HCL 200 MG TABLET GT SCH (08:55)
[2022-03-18] MEDS: FUROSEMIDE 40 MG/4 ML VIAL IV SCH ×2 (08:56→16:29)
[2022-03-18] MEDS: FERROUS SULFATE (325 MG) 325 MG/TAB TABLET GT SCH (08:56)
[2022-03-18] MEDS: CHLORHEXIDINE GLUCONATE 15 ML UDC MM SCH ×2 (08:56→16:29)
[2022-03-18] MEDS: QUETIAPINE FUMARATE 25 MG TABLET GT SCH (08:56)
[2022-03-18] MEDS: glyBURIDE 5 MG TABLET GT SCH ×2 (08:56→16:29)
[2022-03-18] MEDS: PANTOPRAZOLE 40 MG/PACK PACK GT SCH (08:56)
[2022-03-18] MEDS: THERAHONEY GEL 1.5 OZ TUBE TP SCH (08:57)
[2022-03-18] MEDS: DILTIAZEM HCL CD 240 MG PO SCH (08:57)
[2022-03-18] MEDS: BENAZEPRIL HCL 20 MG TABLET GT SCH (10:35)
[2022-03-18] MEDS: CARVEDILOL 3.125 MG TABLET GT SCH ×2 (10:35→16:29)
[2022-03-18 11:51] LABS: CALCIUM, SERUM 8.2 mg/dL (8.5-10.1); CREATININE 1.7 mg/dL (0.6-1.3); POTASSIUM 3.4 mmol/L (3.5-5.1)
[2022-03-18 12:00] VITALS: BP 136/69
--- NOTE | 2022-03-18 14:12 | NUR ---
rn note pt took out inner cannula and very anxious. notified hairspring truing inspector kathy that seroquel was given as scheduled and if pt can be ordered anxiety medications. hairspring truing inspector kathy increased dose of seroquel to 50 mg and on restraints. orders noted and carried out
--- NOTE | 2022-03-18 15:42 | NUR ---
telegraphic typewriter operator chief note thoracentesis lt lung done , [address] lujan no need sent specimen for cytology
--- NOTE | 2022-03-18 15:42 | NUR ---
rn note thoracentesis ordered stat chest xray
[2022-03-18 16:00] VITALS: BP 115/66
[2022-03-18] MEDS: QUETIAPINE FUMARATE 25 MG TABLET PO SCH ×2 (16:30→22:05)
--- NOTE | 2022-03-18 18:06 | NUR ---
rn note called radiology for follow up on stat chest x ray results of left lung thoracentesis said results should be ready in 15-20 minutes
--- NOTE | 2022-03-18 19:23 | NUR ---
RN CLOSING NOTE: PT ALERT AND ORIENTED TO NAME. REORIENTED TO TIME AND PLACE. MOUTHS WORDS. TRACH WITH VENT AT PRESCRIBED SETTINGS. GT IN PLACE PATENT. NO RESIDUAL VOLUME NOTED. GTUBE INTACT, PATENT. LEFT UPPER ARM MIDLINE IN PLACE. IV PATENT, FLUSHING WELL, INTACT. NO S/S OF COMPLICATIONS. ON TELE MONITOR CURRENTLY SR 66. PATIÑO CATHETHER YELLOW COLOR DRAINING TO GRAVITY. PT ON BILATERAL SOFT WRIST RESTRAINTS IN PLACE.NO SKIN OR CIRCULATION ISSUES NOTED AT THIS TIME. HOB ELEVATED AT ALL TIMES. SIDE RAILS UP X2. BED LOCKED AND IN LOWEST POSITION. BED ALARM ON. ENDORSED TO APPRISE COUNSELOR RN FOR CONTINUITY OF CARE
--- NOTE | 2022-03-18 19:24 | NUR ---
RN NOTES: RECEIVED AWAKE ON BED, A/OX1, LOOKS RESTLESS HE IS MOVING UP AND DOWN, WHILE ENDORSEMENT WE TRIED TO REPOSITION HIM, WITH SOFT RESTRAINT ON BILATERAL HANDS, TELE MONITOR SR-80'S, NPO, WITH G-TUBE FEEDING GLUCERNA AT 55 ML/HR CONTINUOS.ON MECHANICAL VENTILATOR, NAMRATALEY #8. AC-20 TV-40 FiO2-35 PEEP-5 SPO2-1005, ON PATIÑO CATH DRAINING INTO YELLOWISH COLORED URINE AT 200 CC LEVEL,ORIENTED TO UNIT AND STAFF, NO SIGN OF RESPIRATORY DISTRESS, NON LABORED BREATHING, AFETY AND ASPIRATION PRECAUTION OBSERVED.
[2022-03-18 20:00] VITALS: BP 125/71
[2022-03-18] MEDS: ATORVASTATIN 40 MG TABLET PO SCH (22:05)
[2022-03-18] MEDS: GLUCERNA 1.5 1,000 ML BOTTLE GT SCH (22:48)
[2022-03-18] MEDS: ACETAMINOPHEN 325 MG TABLET PO PRN (22:53)
--- NOTE | 2022-03-18 22:54 | NUR ---
RN NOTES: -NOTED WITH FACIAL GRIMACE DURING REPOSITIONING, TYLENOL prn FOR PAIN GIVEN -CONSUMED GLUCERNA 1.5 AT 55 ML/HR STARTED NEW BOTTLE
[2022-03-19] VITALS: BP 105/57
--- NOTE | 2022-03-19 | NUR ---
RN NOTES: BLOOD SUGAR-216, INSULIN GIVEN PER SCALE, WILL CONTINUE TO MONITOR FOR ANY SIGN OF HYPER/HYPOGLYCEMIA, FEEDING ONGOING GLUCERNA 1.2 AT 55 ML/HR.
[2022-03-19] MEDS: BLOOD SUGAR DIAGNOSTIC 1 EACH STRIP IN SCH ×4 (01:24→18:29)
[2022-03-19] MEDS: INSULIN REGULAR, HUMAN 100 UNIT/ML 3 ML VIAL SQ PRN ×4 (01:32→18:39)
[2022-03-19 04:00] VITALS: BP 111/67
[2022-03-19] MEDS: ALBUTEROL FS 2.5 MG/0.5 ML VIAL.NEB NEB SCH ×6 (04:10→23:23)
[2022-03-19] MEDS: IPRATROPIUM NEB FS 0.5 MG/2.5 ML AMPUL.NEB NEB SCH ×6 (04:10→23:23)
--- NOTE | 2022-03-19 05:57 | NUR ---
PATIENT RECEIVED ON TRACH TO VENT WITH SETTINGS OF AC 20, 450 Vt, 35%, +5. SUCTIONED FOR MINIMAL, THIN, WHITE SECRETIONS. GIVEN IN-LINE TREATMENTS WITH NO ADVERSE REACTIONS. AMBU BAG AT BEDSIDE. VENT AND PULSE OXIMETER ALARMS AUDIBLE AND VISIBLE. VENT PLUGGED INTO RED OUTLET. Addendum: 03/19/22 at 0558 by KY JOLLEY RT Amended: Links added.
--- NOTE | 2022-03-19 06:16 | NUR ---
RN NOTES: BLOOD SUGAR CHECK-164, INSULIN GIVEN PER SCALE,HE IS FULLY AWAKE, TURNING SIDE TO SIDE, UNABLE TO MAINTAIN SEMI FOWLERS POSITION HE IS SLIDING DOWN, KEPT ON FREQUENT VISUAL CHECK.
--- NOTE | 2022-03-19 07:02 | NUR ---
RN NOTES: AWAKE, REPOSITIONED, SOFT RESTRAIN ON BUE CHECKED AT FREQUENT INTERVAL, CIRCULATION CHECKED, NO SKIN ISSUES NOTED,NO DISCOLORATION ON THE RESTRAINT SITE, ABLE TO UNDERSTAND INSTRUCTION ENCOURAGE, KAYLYN JONES IN SITE -OUTPUT-350, HAD 1 BM, G-TUBE FEEDING ONGOING, ASPIRATION PRECAUTION OBSERVED.FOR LABS IN THE MORNING, F/U CARDIO AND PULMO CONSULT, ENDORSED FOR CONTINUITY OF CARE
[2022-03-19 07:57] LABS: BASOPHILS % (AUTO) 0.5 % (0.0-2.0); EOSINOPHILS % (AUTO) 2.1 % (0.0-6.0); HEMATOCRIT 24 % (39-51); HEMOGLOBIN 7.9 g/dL (13.5-17.5); LYMPHOCYTES % (AUTO) 12.4 % (20.0-44.0); MEAN CORPUSCULAR HGB CONC 33 g/dl (31.0-36.0); MEAN CORPUSCULAR VOLUME 92 fL (80-96); MONOCYTES # (AUTO) 0.6 K/uL (0.1-1.30); MONOCYTES % (AUTO) 6.8 % (2.0-12.0); NEUTROPHILS # (AUTO) 6.5 K/uL (1.8-8.9); NEUTROPHILS % (AUTO) 78.2 % (43.0-81.0); PLATELET COUNT (AUTO) 268 K/uL (150-450); RED BLOOD CELL COUNT(AUTO) 2.61 MIL/uL (4.5-6.0); WHITE BLOOD COUNT (AUTO) 8.3 K/uL (4.3-11.0)
[2022-03-19 08:00] VITALS: BP 137/50
[2022-03-19 08:16] LABS: CALCIUM, SERUM 8.4 mg/dL (8.5-10.1); CREATININE 1.8 mg/dL (0.6-1.3); MAGNESIUM 1.5 mg/dL (1.8-2.4); PHOSPHORUS 3.4 mg/dL (2.5-4.9); POTASSIUM 3.1 mmol/L (3.5-5.1)
--- NOTE | 2022-03-19 08:48 | NUR ---
MUSIC PUBLISHER NOTES: RECEIVED AWAKE ON BED, A/OX1, LOOKS RESTLESS HE IS MOVING UP AND DOWN, SOFT RESTRAINT ON BILATERAL HANDS, TELE MONITOR SR-80'S, NPO, WITH G-TUBE FEEDING GLUCERNA AT 55 ML/HR CONTINUOS.ON MECHANICAL VENTILATOR, JUSTYN #[id number]. AC-20 TV-40 FiO2-35 PEEP-5 SPO2-1005, ON PATIÑO CATH DRAINING INTO YELLOWISH COLORED URINE AT 150 CC LEVEL,ORIENTED TO UNIT AND STAFF, NO SIGN OF RESPIRATORY DISTRESS, NON LABORED BREATHING, AFETY AND ASPIRATION PRECAUTION OBSERVED. PATIENTS BED IN LOWEST POSITION AND LOCKED Addendum: 03/19/22 at 1801 by RICK OLIVAREZ RN ADDENDUM: WITH SH 8 TRACH TO MECHANICAL VENTILATOR SETTING ORDERED, WELL TOLERATED. BREATHING EVEN AND UNLABORED, MOUTHS WORDS, SEE NURSING FLOWSHEET FOR SKIN ISSUES, BOTH WRIST RESTRAINTS RELEASED AND CHECKED FOR CIRCULATION THEN Q 2 HOURS. PATIENT SEEN BY SPEECH THERAPIST AND RECOMMENDED TO REMAIN NPO DUE TO SOB WHILE EATING. GT CHECKED FOR PLACEMENT 0 RESIDUAL.
--- NOTE | 2022-03-19 08:52 | NUR ---
on weaning trial per dr. tai LECHUGA 4 PS 15 FIO2 35% PEEP +5 RN NOTIFIED ON ABOVE CHANGES FOR WEANING TRIAL. Addendum: 03/19/22 at 0853 by AZUL FALLON RT Amended: Links added.
[2022-03-19] MEDS: CARVEDILOL 3.125 MG TABLET GT SCH ×2 (09:00→18:25)
[2022-03-19] MEDS: AMIODARONE HCL 200 MG TABLET GT SCH (09:00)
[2022-03-19] MEDS ORDERED: Magnesium 1GM/D5W 100ML PREMIX PIGGYBACK IV ONE (09:30)
[2022-03-19] MEDS ORDERED: POTASSIUM CHLORIDE 20 MEQ POWDER PACKET GT ONE (09:30)
--- NOTE | 2022-03-19 09:30 | NUR ---
RN NOTES DUE MEDS GIVEN
[2022-03-19] MEDS: FUROSEMIDE 40 MG/4 ML VIAL IV SCH ×2 (09:31→18:24)
[2022-03-19] MEDS: ASPIRIN 81 MG TAB.CHEW GT SCH (09:32)
[2022-03-19] MEDS: DILTIAZEM HCL CD 240 MG PO SCH (09:32)
[2022-03-19] MEDS: BENAZEPRIL HCL 20 MG TABLET GT SCH (09:33)
[2022-03-19] MEDS: FERROUS SULFATE (325 MG) 325 MG/TAB TABLET GT SCH (09:33)
[2022-03-19] MEDS: glyBURIDE 5 MG TABLET GT SCH ×2 (09:34→18:21)
[2022-03-19] MEDS: QUETIAPINE FUMARATE 25 MG TABLET PO SCH ×3 (09:36→21:29)
[2022-03-19] MEDS: PANTOPRAZOLE 40 MG/PACK PACK GT SCH (09:36)
[2022-03-19] MEDS: CHLORHEXIDINE GLUCONATE 15 ML UDC MM SCH ×2 (09:36→18:23)
[2022-03-19] MEDS: THERAHONEY GEL 1.5 OZ TUBE TP SCH (09:44)
[2022-03-19 10:33] LABS: ABG BASE EXCESS 9.2 mmol/L; ABG PCO2 39.1 mmHg (35.0-45.0); ABG PH 7.538 (7.350-7.450); ABG PO2 113.3 mmHg (75.0-100.0); COHb 0.3 % (0.5-1.5); MetHb 0.4 % (0.0-1.5); O2Hb 97.3 % (94.0-97.0); PEEP,BG 5 cm H2O; SITE, ABG Right Brachial; VENT MODE, BG SIMV 4 / PS 15; VT, ABG 450 mL
[2022-03-19] MEDS: CLOPIDOGREL BISULFATE 75 MG TABLET PO SCH (11:59)
[2022-03-19 16:00] VITALS: BP 144/70
--- NOTE | 2022-03-19 19:25 | NUR ---
RN CLOSING NOTES PATIENT QUET IN BED, AT BEDSIDE, IV SITE FLUSHES WELL, ALL MEDS GIVEN THROUGI TUBE,TOLERATED WELL. SAFETY MEASURES MAINTAINED, BED IN LOWEST POSITION. ENDORSE TO THE WELDER SETTER ELECTRON BEAM MACHINE.
[2022-03-19 20:00] VITALS: BP 115/67
[2022-03-19] MEDS: ATORVASTATIN 40 MG TABLET PO SCH (21:28)
[2022-03-19] MEDS: GLUCERNA 1.5 1,000 ML BOTTLE GT SCH (21:31)
[2022-03-20] VITALS: BP 110/59
[2022-03-20] MEDS: BLOOD SUGAR DIAGNOSTIC 1 EACH STRIP IN SCH ×4 (00:37→18:02)
[2022-03-20] MEDS: INSULIN REGULAR, HUMAN 100 UNIT/ML 3 ML VIAL SQ PRN ×4 (00:40→18:01)
[2022-03-20] MEDS: ALBUTEROL FS 2.5 MG/0.5 ML VIAL.NEB NEB SCH ×5 (03:54→19:59)
[2022-03-20] MEDS: IPRATROPIUM NEB FS 0.5 MG/2.5 ML AMPUL.NEB NEB SCH ×5 (03:54→19:59)
[2022-03-20 04:00] VITALS: BP 118/51
--- NOTE | 2022-03-20 06:44 | NUR ---
RN NOTES PATIENT REMAINS STABLE NO SIGNIFICANT CHANGES IN HEALTH CONDITION. ALL DUE MEDS GIVEN ORDERED. WILL ENDORSED TO MORNING SHIFT FOR [facility]
--- NOTE | 2022-03-20 07:30 | NUR ---
WATCH REPAIRER AM NOTES PATIENT IN BED, AAO X 2-3, MOUTH WORDS, WITH SHILEY 8.5 TRACH TO MECHANICAL VENT, SETTING ORDERED, AC 20 TV 400 FIO2 35 PEEP 5. O2 SAT 99%. BREATHING EVEN AND UNLABORED, WELL TOLERATED. NO SOB, NO DISTRESS, SR HR 81 ON MONITOR, NO SIGNS OF PAIN, WITH JACQUES MIDLINE, FLUSHES WELL SITE CLEAR. G TUBE GLUCERNA 1.5 55 ML/HR ONGOING, CHECKED FOR PLACEMENT, O RESIDUAL. PATIÑO CATH IN PLACE, DRAINING TO YELLOW COLORED URINE.SEE NURSING FLOWSHEET FOR SKIN ISSUES, BOTH WRIST RESTRAINTS RELEASED AND CHECKED FOR CIRCULATION THEN Q [address] PL[address]. BED LOW/LOCKED. HOB 3O DEG, SR UP X 2, CALL LIGHT WITHIN REACH. WILL CONTINUE TO MONITOR. PATIENT SEEN BY SPEECH THERAPIST AND RECOMMENDED TO REMAIN NPO DUE TO SOB WHILE EATING.
[2022-03-20 08:00] VITALS: BP 117/61
[2022-03-20] MEDS: FUROSEMIDE 40 MG/4 ML VIAL IV SCH ×2 (08:44→17:01)
[2022-03-20] MEDS: CHLORHEXIDINE GLUCONATE 15 ML UDC MM SCH ×2 (08:44→17:03)
[2022-03-20] MEDS: QUETIAPINE FUMARATE 25 MG TABLET PO SCH ×3 (08:44→21:19)
[2022-03-20] MEDS: glyBURIDE 5 MG TABLET GT SCH ×2 (08:44→17:01)
[2022-03-20] MEDS: BENAZEPRIL HCL 20 MG TABLET GT SCH (08:45)
[2022-03-20] MEDS: FERROUS SULFATE (325 MG) 325 MG/TAB TABLET GT SCH (08:46)
[2022-03-20] MEDS: ASPIRIN 81 MG TAB.CHEW GT SCH (08:46)
[2022-03-20] MEDS: PANTOPRAZOLE 40 MG/PACK PACK GT SCH (08:46)
[2022-03-20] MEDS: AMIODARONE HCL 200 MG TABLET GT SCH (08:47)
[2022-03-20] MEDS: CLOPIDOGREL BISULFATE 75 MG TABLET PO SCH (08:56)
[2022-03-20] MEDS: CARVEDILOL 3.125 MG TABLET GT SCH ×2 (08:57→17:00)
[2022-03-20] MEDS: DILTIAZEM HCL CD 240 MG PO SCH (08:58)
[2022-03-20] MEDS: THERAHONEY GEL 1.5 OZ TUBE TP SCH (09:19)
[2022-03-20] MEDS: Z GUARD REMEDY 4 OZ OINT TP PRN (09:20)
--- NOTE | 2022-03-20 09:30 | NUR ---
RN NOTES DUE MEDS GIVEN
[2022-03-20 12:00] VITALS: BP 99/53
[2022-03-20] MEDS: ACETAMINOPHEN 325 MG TABLET PO PRN ×2 (12:31→18:54)
[2022-03-20 13:53] LABS: EOSINOPHILS % (AUTO) 2.6 % (0.0-6.0); HEMATOCRIT 21 % (39-51); LYMPHOCYTES # (AUTO) 0.9 K/uL (0.8-4.8); LYMPHOCYTES % (AUTO) 10.3 % (20.0-44.0); MEAN CORPUSCULAR HGB CONC 33 g/dl (31.0-36.0); MEAN CORPUSCULAR VOLUME 91 fL (80-96); MONOCYTES # (AUTO) 0.6 K/uL (0.1-1.30); MONOCYTES % (AUTO) 7.5 % (2.0-12.0); NEUTROPHILS # (AUTO) 6.6 K/uL (1.8-8.9); NEUTROPHILS % (AUTO) 79.6 % (43.0-81.0); PLATELET COUNT (AUTO) 208 K/uL (150-450); RED BLOOD CELL COUNT(AUTO) 2.33 MIL/uL (4.5-6.0); WHITE BLOOD COUNT (AUTO) 8.3 K/uL (4.3-11.0)
[2022-03-20 14:05] LABS: CALCIUM, SERUM 8.5 mg/dL (8.5-10.1); CREATININE 1.9 mg/dL (0.6-1.3); MAGNESIUM 1.8 mg/dL (1.8-2.4); PHOSPHORUS 2.9 mg/dL (2.5-4.9); POTASSIUM 3.8 mmol/L (3.5-5.1)
--- NOTE | 2022-03-20 14:14 | NUR ---
RN NOTES NOTIFIED DAIRY DEPARTMENT MANAGER ADY GARNER, HGB 7.0 HCT 21. NNO
--- NOTE | 2022-03-20 15:25 | NUR ---
RN NOTE PTs SACRUM, LEFT UPPER BACK AND GROIN AREAS CLEAN WITH NS AND PAT DRY, THERAHONEY APPLIED TO OPEN AREAS, SACRUM WOUND PACK WITH IDOFORM PACKING, COVERED WITH OPTIFOAM.
[2022-03-20 16:00] VITALS: BP 102/57
--- NOTE | 2022-03-20 19:04 | NUR ---
RN CLOSING NOTE PATIENT IN SUPINE POSITION, IV SITE FLUSHES WELL, GTUBE FLUSHED, SOFT RESTRAINS IN USE. SAFETY PRECAUTIONS IMPLEMENTED, BED IN LOWEST POSITION. IMPLEMENTED.
--- NOTE | 2022-03-20 19:30 | NUR ---
CORDWOOD CUTTER OPENING NOTES PATIENT IN BED, A/O X 2-3,ABLE TO MOUTH WORDS TO MAKE NEEDS KNOWN.PT TRACH TO MECHANICAL VENT,TOLERATING SETTING, BUT DESATS WHEN RESTLESS. TELE MONITOR READING SR, IV ACCESS JACQUES M/L, INTACT AND PATENT,G TUBE RUNNING GLUCERNA 1.5 @55 ML/HR ONGOING, CHECKED FOR PLACEMENT, NO RESIDUAL NOTED, PATIÑO CATHETER DRAINING CLEAR YELLOW URINE, SKIN ISSUES DOCUMENTED AND PICS IN CHART, PT ON KATINA SOFT WRIST RESTRAINTS, RESTRAINTS WILL BE VISUALLY CHECKED FOR CIRCULATION THEN Q 15MI. ALL FALL AND SAFETY MEASURES IN PLACE, BED ALARM ON, BED IN LOW AND LOCK POSITION, CALL LIGHT AND TABLE WITHIN EASY REACH, SIDE RAILS UP X2. WILL CONTINUE TO MONITOR.
[2022-03-20 20:00] VITALS: BP 93/52
[2022-03-20] MEDS: ATORVASTATIN 40 MG TABLET PO SCH (21:19)
[2022-03-21] VITALS (7 sets, daily range): BP systolic 85–125; BP diastolic 40–65
[2022-03-21] MEDS: IPRATROPIUM NEB FS 0.5 MG/2.5 ML AMPUL.NEB NEB SCH ×7 (00:10→23:40)
[2022-03-21] MEDS: ALBUTEROL FS 2.5 MG/0.5 ML VIAL.NEB NEB SCH ×7 (00:10→23:30)
[2022-03-21] MEDS: BLOOD SUGAR DIAGNOSTIC 1 EACH STRIP IN SCH ×5 (00:31→23:36)
[2022-03-21] MEDS: INSULIN REGULAR, HUMAN 100 UNIT/ML 3 ML VIAL SQ PRN ×5 (00:32→23:36)
--- NOTE | 2022-03-21 07:02 | NUR ---
RN CLOSING NOTE ALL SIGNIFICANT CHANGES THROUGHOUT SHIFT WAS DOCUMENTED. PT STABLE WILL ENDORSE TO MORNING SHIFT FOR ALEXIS.
--- NOTE | 2022-03-21 07:25 | NUR ---
SECOND RIDE FARE COLLECTOR OPENING NOTES: PATIENT IN BED, A&O X 2-3, MOUTH WORDS, WITH SHILEY 8.5 TRACH TO MECHANICAL VENT, SETTING ORDERED, AC 20 TV 400 FIO2 35 PEEP 5. O2 SAT 100%. BREATHING EVEN AND UNLABORED, WELL TOLERATED. NO SOB, NO DISTRESS, SR HR 79 ON MONITOR, NO SIGNS OF PAIN, WITH JACQUES MIDLINE, FLUSHES WELL SITE CLEAR. G TUBE GLUCERNA 1.5 @55 ML/HR ONGOING, CHECKED FOR PLACEMENT, O RESIDUAL. APTIÑO CATH IN PLACE, DRAINING TO YELLOW COLORED URINE. BOTH WRIST RESTRAINTS RELEASED AND CHECKED FOR CIRCULATION THEN Q [address] PL[address] BED LOW/LOCKED. HOB 3O DEG, SR UP X 2, CALL LIGHT WITHIN REACH. WILL CONTINUE TO MONITOR.
[2022-03-21 07:57] LABS: BASOPHILS % (AUTO) 0.3 % (0.0-2.0); HEMATOCRIT 22 % (39-51); HEMOGLOBIN 7.3 g/dL (13.5-17.5); LYMPHOCYTES # (AUTO) 0.5 K/uL (0.8-4.8); LYMPHOCYTES % (AUTO) 5.8 % (20.0-44.0); MEAN CORPUSCULAR HGB CONC 33 g/dl (31.0-36.0); MEAN CORPUSCULAR VOLUME 91 fL (80-96); MONOCYTES # (AUTO) 0.3 K/uL (0.1-1.30); MONOCYTES % (AUTO) 3.8 % (2.0-12.0); NEUTROPHILS % (AUTO) 88.1 % (43.0-81.0); PLATELET COUNT (AUTO) 186 K/uL (150-450); RED BLOOD CELL COUNT(AUTO) 2.43 MIL/uL (4.5-6.0)
[2022-03-21 08:17] LABS: BILIRUBIN,URINE NEGATIVE (NEGATIVE); COLOR,URINE YELLOW (YELLOW); LEUKOCYTE ESTERASE ,URINE TRACE (NEGATIVE); NITRITE, URINE NEGATIVE (NEGATIVE); PH,URINE 6.5 (5.0-8.0); PROTEIN,URINE 2+ mg/dl (NEGATIVE); UGLUCOSE NEGATIVE (NEGATIVE)
[2022-03-21 08:20] LABS: CALCIUM, SERUM 8.9 mg/dL (8.5-10.1); CREATININE 2.1 mg/dL (0.6-1.3); MAGNESIUM 2.1 mg/dL (1.8-2.4); PHOSPHORUS 3.2 mg/dL (2.5-4.9); POTASSIUM 3.8 mmol/L (3.5-5.1)
[2022-03-21] MEDS: CHLORHEXIDINE GLUCONATE 15 ML UDC MM SCH ×2 (08:36→17:16)
[2022-03-21] MEDS: CLOPIDOGREL BISULFATE 75 MG TABLET PO SCH (08:37)
[2022-03-21] MEDS: FERROUS SULFATE (325 MG) 325 MG/TAB TABLET GT SCH (08:37)
[2022-03-21] MEDS: PANTOPRAZOLE 40 MG/PACK PACK GT SCH (08:39)
[2022-03-21] MEDS: CARVEDILOL 3.125 MG TABLET GT SCH ×2 (08:39→17:15)
[2022-03-21] MEDS: ASPIRIN 81 MG TAB.CHEW GT SCH (08:39)
[2022-03-21] MEDS: glyBURIDE 5 MG TABLET GT SCH ×2 (08:40→17:15)
[2022-03-21] MEDS: FUROSEMIDE 40 MG/4 ML VIAL IV SCH ×2 (08:40→17:15)
[2022-03-21] MEDS: AMIODARONE HCL 200 MG TABLET GT SCH (08:41)
[2022-03-21] MEDS: BENAZEPRIL HCL 20 MG TABLET GT SCH (08:41)
[2022-03-21] MEDS: DILTIAZEM HCL CD 240 MG PO SCH (08:42)
[2022-03-21] MEDS: QUETIAPINE FUMARATE 25 MG TABLET PO SCH ×3 (08:42→22:38)
[2022-03-21] MEDS: THERAHONEY GEL 1.5 OZ TUBE TP SCH (08:43)
[2022-03-21] MEDS: ONDANSETRON HCL/PF 4 MG/2 ML VIAL IVP PRN (09:04)
[2022-03-21 11:41] LABS: BACTERIA,URINE Many /HPF (None Seen); SQUAMOUS EPITHELIAL CELL,UR Rare /HPF (None Seen); YEAST,URINE Rare /HPF (None Seen)
[2022-03-21] MEDS: ACETAMINOPHEN 325 MG TABLET PO PRN ×2 (12:24→19:57)
--- NOTE | 2022-03-21 12:30 | NUR ---
RN NOTES: WHILE DOING TRACH CARE NOTED PT IS VERY WARM TO TOUCH CHECKED TEMP 103 TYLENOL GIVEN, COOLING MEASURES RENDERED, ADY GARNER NP MADE AWARE
[2022-03-21] MEDS: GLUCERNA 1.5 1,000 ML BOTTLE GT SCH (15:04)
[2022-03-21] MEDS: CEFTRIAXONE 1 G in IV D5W 50 ML IV SCH (17:16)
--- NOTE | 2022-03-21 19:14 | NUR ---
RN CLOSING NOTES PATIENT QUET IN BED, IV SITE FLUSHES WELL, ALL MEDS GIVEN THROUGH G TUBE,TOLERATED WELL. SAFETY MEASURES MAINTAINED, BED IN LOWEST POSITION. ENDORSE TO THE BOWLING BALL MOLDER.
--- NOTE | 2022-03-21 19:30 | NUR ---
GRADES 6 THROUGH 8 TEACHER OPENING NOTES PATIENT IN BED, A/O X 2-3,ABLE TO MOUTH WORDS TO MAKE NEEDS KNOWN.PT TRACH TO MECHANICAL VENT,TOLERATING SETTING, BUT DESATS WHEN RESTLESS. TELE MONITOR READING SR, IV ACCESS JACQUES M/L, INTACT AND PATENT,G TUBE RUNNING GLUCERNA 1.5 @55 ML/HR ONGOING, CHECKED FOR PLACEMENT, NO RESIDUAL NOTED, PATIÑO CATHETER DRAINING CLEAR YELLOW URINE, SKIN ISSUES DOCUMENTED AND PICS IN CHART, PT ON KATINA SOFT WRIST RESTRAINTS, RESTRAINTS WILL BE VISUALLY CHECKED FOR CIRCULATION THEN Q 15MI. BP WAS LOW 70/35 RECHECKED MANUALLY AND WAS 85/40 AND TEMP 101.2 GLASS BENDER JAYNE DELAROSA WAS ADVISED AND ORDERS PLACED. ALL FALL AND SAFETY MEASURES IN PLACE, BED ALARM ON, BED IN LOW AND LOCK POSITION, CALL LIGHT AND TABLE WITHIN EASY REACH, SIDE RAILS UP X2. WILL CONTINUE TO MONITOR.
--- NOTE | 2022-03-21 19:53 | NUR ---
RN NOTE PT BP WAS 70/35, MANUALLY CHECKED AND BP WAS 85/40. TEMP WAS 101.2 TYLENOL WAS GIVEN. CYTOGENETICS TECHNOLOGIST [place] WAS NOTIFIED OF BP. ORDER FOR A BOLUS 500ML AND MIDODRINE.
[2022-03-21] MEDS ORDERED: IV NS 0.9% 500 ML IV ONE (20:30)
[2022-03-21] MEDS ORDERED: MIDODRINE HCL (5MG) 5 MG TABLET PO SCH (20:30)
--- NOTE | 2022-03-21 21:00 | NUR ---
RN NOTE 1HR AFTER MIDODRINE WAS GIVEN BP 94/45.
[2022-03-21] MEDS: ATORVASTATIN 40 MG TABLET PO SCH (22:38)
--- NOTE | 2022-03-21 23:03 | NUR ---
RN NOTE CALLED DAUGHTER ENRIKE BACK AND GAVE UPDATE. [phone]
--- NOTE | 2022-03-21 23:41 | NUR ---
RN NOTE PT BP WAS 72/46, MANUAL CHECK BP WAS 82/62, SPORT PSYCHOLOGIST [place] NOTIFIED AND ADVISED TO JUST HOLD LASIX IF SBP <90 AND MONITOR, NO NEW ORDERS FOR MEDICATION.
[2022-03-22] VITALS (10 sets, daily range): BP systolic 82–111; BP diastolic 47–68
[2022-03-22] MEDS: IPRATROPIUM NEB FS 0.5 MG/2.5 ML AMPUL.NEB NEB SCH ×6 (02:47→23:49)
[2022-03-22] MEDS: ALBUTEROL FS 2.5 MG/0.5 ML VIAL.NEB NEB SCH ×2 (03:30→09:10)
[2022-03-22] MEDS: BLOOD SUGAR DIAGNOSTIC 1 EACH STRIP IN SCH ×4 (05:29→23:58)
[2022-03-22] MEDS: INSULIN REGULAR, HUMAN 100 UNIT/ML 3 ML VIAL SQ PRN ×3 (05:30→17:15)
[2022-03-22 06:06] LABS: BASOPHILS # (AUTO) 0.1 K/uL (0.0-0.2); BASOPHILS % (AUTO) 0.4 % (0.0-2.0); EOSINOPHILS % (AUTO) 0.1 % (0.0-6.0); LYMPHOCYTES # (AUTO) 0.6 K/uL (0.8-4.8); LYMPHOCYTES % (AUTO) 4.4 % (20.0-44.0); MEAN CORPUSCULAR HGB CONC 32 g/dl (31.0-36.0); MEAN CORPUSCULAR VOLUME 93 fL (80-96); MONOCYTES # (AUTO) 0.8 K/uL (0.1-1.30); MONOCYTES % (AUTO) 5.7 % (2.0-12.0); NEUTROPHILS # (AUTO) 13.2 K/uL (1.8-8.9); NEUTROPHILS % (AUTO) 89.4 % (43.0-81.0); PLATELET COUNT (AUTO) 151 K/uL (150-450); RED BLOOD CELL COUNT(AUTO) 2.11 MIL/uL (4.5-6.0); WHITE BLOOD COUNT (AUTO) 14.8 K/uL (4.3-11.0)
[2022-03-22 06:18] LABS: HEMATOCRIT 20 % (39-51)
[2022-03-22 06:20] LABS: HEMOGLOBIN 6.2 g/dL (13.5-17.5)
--- NOTE | 2022-03-22 06:20 | NUR ---
RN NOTE CRITICAL LAB HGB 6.2 WILL LET CHADD DELAROSA KNOW
--- NOTE | 2022-03-22 06:24 | NUR ---
RN NOTE INSURANCE ADMINISTRATIVE ASSISTANT [place] ORDERED BLOOD TRANSFUSION 1 UNIT PRBC X1.
--- NOTE | 2022-03-22 06:28 | NUR ---
RN NOTE CALLED PT DAUGHTER FOR CONSENT OF BLOOD TRANSFUSION. ENRIKE AT [phone]
[2022-03-22 06:45] LABS: CALCIUM, SERUM 8.3 mg/dL (8.5-10.1); CREATININE 2.9 mg/dL (0.6-1.3); PHOSPHORUS 4.1 mg/dL (2.5-4.9); POTASSIUM 5.4 mmol/L (3.5-5.1)
--- NOTE | 2022-03-22 06:49 | NUR ---
RN CLOSING NOTE ALL SIGNIFICANT CHANGES THROUGHOUT SHIFT WAS DOCUMENTED. PT STABLE RESTING IN BED. CONSENT WAS SIGNED AND PLACED IN THE CHART FOR TRANSFUSION. WILL ENDORSE TO MORNING SHIFT FOR ALEXIS.
--- NOTE | 2022-03-22 07:19 | NUR ---
RN NOTES Resident comfortably resting in bed. No pain/discomfort at this time. Pt on vent, current settings well tolerated. Call light within easy reach.
[2022-03-22] MEDS ORDERED: PHARMACY TO CHANGE PO MEDS TO GT/NG XX PRN (07:30)
[2022-03-22] MEDS ORDERED: ATORVASTATIN 40 MG TABLET GT SCH (07:30)
[2022-03-22] MEDS ORDERED: HYDROCODONE/APAP 5/325MG TABLET GT PRN (07:32)
[2022-03-22] MEDS ORDERED: QUETIAPINE FUMARATE 25 MG TABLET GT SCH (07:33)
[2022-03-22] MEDS ORDERED: ACETAMINOPHEN 650 MG/20.3 ML UDC GT PRN (08:00)
[2022-03-22] MEDS: CHLORHEXIDINE GLUCONATE 15 ML UDC MM SCH ×2 (08:24→16:53)
[2022-03-22] MEDS: CLOPIDOGREL BISULFATE 75 MG TABLET GT SCH (08:24)
[2022-03-22] MEDS: QUETIAPINE FUMARATE 25 MG TABLET GT SCH ×3 (08:25→21:32)
[2022-03-22] MEDS: PANTOPRAZOLE 40 MG/PACK PACK GT SCH (08:25)
[2022-03-22] MEDS: FERROUS SULFATE (325 MG) 325 MG/TAB TABLET GT SCH (08:25)
[2022-03-22] MEDS: FUROSEMIDE 40 MG/4 ML VIAL IV SCH ×2 (08:25→16:38)
[2022-03-22] MEDS: glyBURIDE 5 MG TABLET GT SCH ×2 (08:25→16:54)
[2022-03-22] MEDS: ASPIRIN 81 MG TAB.CHEW GT SCH (08:26)
[2022-03-22] MEDS: MIDODRINE HCL (5MG) 5 MG TABLET GT SCH ×2 (08:26→12:25)
[2022-03-22] MEDS: CARVEDILOL 3.125 MG TABLET GT SCH ×2 (08:27→16:37)
[2022-03-22] MEDS: BENAZEPRIL HCL 20 MG TABLET GT SCH (08:27)
[2022-03-22] MEDS: AMIODARONE HCL 200 MG TABLET GT SCH (08:28)
[2022-03-22] MEDS: DILTIAZEM HCL 30 MG TABLET GT SCH ×4 (08:28→21:00)
[2022-03-22] MEDS: THERAHONEY GEL 1.5 OZ TUBE TP SCH (09:49)
[2022-03-22] MEDS ORDERED: ALBUTEROL FS 2.5 MG/3 ML VIAL.NEB NEB PRN (11:30)
[2022-03-22 11:31] LABS: BAND % (MANUAL) 6 % (0.0-5.0); NEUTROPHILS % (MANUAL) 84 (42-76)
[2022-03-22 11:32] LABS: LYMPHOCYTES % (MANUAL) 5 % (16-48); MONOCYTES % (MANUAL) 5 % (0-11.0)
[2022-03-22] MEDS: ALBUTEROL FS 2.5 MG/3 ML VIAL.NEB NEB SCH ×4 (11:48→23:49)
[2022-03-22 12:43] LABS: ABG BASE EXCESS 5.8 mmol/L; ABG OXYGEN SATURATION 98.5 % (92.0-98.5); ABG PCO2 37.8 mmHg (35.0-45.0); ABG PH 7.507 (7.350-7.450); ABG PO2 143.3 mmHg (75.0-100.0); AaDO2 62.3 mmHg; COHb 0.4 % (0.5-1.5); MetHb 0.3 % (0.0-1.5); O2Hb 97.8 % (94.0-97.0); SITE, ABG Right Radial; VENT MODE, BG CPAP 12 +5 35%
[2022-03-22] MEDS: GLUCERNA 1.5 1,000 ML BOTTLE GT SCH (16:58)
--- NOTE | 2022-03-22 17:50 | NUR ---
RN NOTES Resident received pRBC, well toleated. No evidence of fluid overload, no s/s of transfusion reaction. V/S WNL. Post transfusion CBC ordered from . Awaiting for results.
[2022-03-22] MEDS: CEFTRIAXONE 1 G in IV D5W 50 ML IV SCH (17:56)
--- NOTE | 2022-03-22 18:37 | NUR ---
RN CLOSING NOTES Resident remains in stable condition. Able to make needs known. JACQUES midline intact, dry. No c/o pain or discomfort. Currentt settings well tolerated. No sob, no acute distress. No s/s of delayed post transfusion reaction noted at this time. FC in placed, secured and patent. GT in placed, patent and secured. Current GTF Glucerna well last. No N/V/D. All needs attended.
--- NOTE | 2022-03-22 19:32 | NUR ---
RN OPENING NOTES; Received Patient in bed awaked aox2 with confusion.on Vent pt last well,no sign sob/distress noted,no complain of pain /discomfort at this time,IV access on JACQUES midline intact and patend,FC in placed,GTube Glucerna @55ml/hr last well,no residual noted,safety measure in place,call light within reach,will continue to monitor.
[2022-03-22 19:53] LABS: BASOPHILS # (AUTO) 0.1 K/uL (0.0-0.2); BASOPHILS % (AUTO) 0.6 % (0.0-2.0); EOSINOPHILS % (AUTO) 1.6 % (0.0-6.0); HEMATOCRIT 26 % (39-51); HEMOGLOBIN 8.2 g/dL (13.5-17.5); LYMPHOCYTES # (AUTO) 1.7 K/uL (0.8-4.8); LYMPHOCYTES % (AUTO) 16.3 % (20.0-44.0); MEAN CORPUSCULAR HGB CONC 32 g/dl (31.0-36.0); MEAN CORPUSCULAR VOLUME 92 fL (80-96); MONOCYTES # (AUTO) 3.3 K/uL (0.1-1.30); MONOCYTES % (AUTO) 31.5 % (2.0-12.0); NEUTROPHILS # (AUTO) 5.2 K/uL (1.8-8.9); PLATELET COUNT (AUTO) 152 K/uL (150-450); RED BLOOD CELL COUNT(AUTO) 2.78 MIL/uL (4.5-6.0); WHITE BLOOD COUNT (AUTO) 10.4 K/uL (4.3-11.0)
[2022-03-22] MEDS: ATORVASTATIN 40 MG TABLET GT SCH (21:32)
[2022-03-23] VITALS: BP 103/56
[2022-03-23] MEDS: INSULIN REGULAR, HUMAN 100 UNIT/ML 3 ML VIAL SQ PRN ×4 (00:05→17:51)
[2022-03-23] MEDS: IPRATROPIUM NEB FS 0.5 MG/2.5 ML AMPUL.NEB NEB SCH ×6 (03:34→22:50)
[2022-03-23] MEDS: ALBUTEROL FS 2.5 MG/3 ML VIAL.NEB NEB SCH ×6 (03:34→22:50)
[2022-03-23 04:00] VITALS: BP 106/62
[2022-03-23] MEDS: BLOOD SUGAR DIAGNOSTIC 1 EACH STRIP IN SCH ×3 (06:03→17:49)
[2022-03-23 06:32] LABS: BASOPHILS % (AUTO) 0.5 % (0.0-2.0); EOSINOPHILS % (AUTO) 1.9 % (0.0-6.0); HEMATOCRIT 28 % (39-51); HEMOGLOBIN 9.1 g/dL (13.5-17.5); LYMPHOCYTES % (AUTO) 10.6 % (20.0-44.0); MEAN CORPUSCULAR HGB CONC 33 g/dl (31.0-36.0); MEAN CORPUSCULAR VOLUME 92 fL (80-96); MONOCYTES # (AUTO) 0.7 K/uL (0.1-1.30); MONOCYTES % (AUTO) 7.6 % (2.0-12.0); NEUTROPHILS # (AUTO) 7.5 K/uL (1.8-8.9); NEUTROPHILS % (AUTO) 79.4 % (43.0-81.0); PLATELET COUNT (AUTO) 163 K/uL (150-450); RED BLOOD CELL COUNT(AUTO) 3.02 MIL/uL (4.5-6.0); WHITE BLOOD COUNT (AUTO) 9.5 K/uL (4.3-11.0)
--- NOTE | 2022-03-23 06:39 | NUR ---
RN CLOSING NOTES; Patient in bed awaked aox2 with confusion.Communicate by hand,On Vent pt last well,no sign sob/distress noted,no complain of pain /discomfort during shift,Due meds given as order,All needs attended,IV access on JACQUES midline intact and patend,FC draining reginaldo urine output 900ml,GTube Glucerna @55ml/hr last well,no residual noted,safety measure in place,call light within reach,will endorsed to next shift.
[2022-03-23 07:07] LABS: BILIRUBIN,TOTAL 0.6 mg/dL (0.2-1.0); CALCIUM, SERUM 8.4 mg/dL (8.5-10.1); CREATININE 2.7 mg/dL (0.6-1.3); MAGNESIUM 2.2 mg/dL (1.8-2.4); PHOSPHORUS 3.9 mg/dL (2.5-4.9); POTASSIUM 3.9 mmol/L (3.5-5.1); TOTAL PROTEIN, SERUM 6.4 g/dL (6.4-8.2)
--- NOTE | 2022-03-23 07:23 | NUR ---
STREET DEPARTMENT DISPATCHER NOTES RECEIVED PT AWAKE IN BED AOX2. NO COMPLAINTS OF PAIN OR DISCOMFORT AT THIS TIME. RESPIRATIONS ARE EQUAL AND UNLABORED WITH NO SOB. PT IS ON A VENTILATOR AND TOLERATING IT WELL. TRACH IS PATENT, INTACT AND IN MIDLINE POSITION. GT IS PATENT AND INTACT. IV ACCESS ON JACQUES MIDLINE. HOB ELEVATED TO 30-45 DEGREES. SIDERAILS UP AT ALL TIME. BED LOCKED AND ON ITS LOWEST SETTING. WILL ANTICIPATE NEEDS.
[2022-03-23 08:00] VITALS: BP 120/55
[2022-03-23] MEDS: QUETIAPINE FUMARATE 25 MG TABLET GT SCH ×3 (08:24→21:50)
[2022-03-23] MEDS: CLOPIDOGREL BISULFATE 75 MG TABLET GT SCH (08:24)
[2022-03-23] MEDS: CHLORHEXIDINE GLUCONATE 15 ML UDC MM SCH ×2 (08:24→17:23)
[2022-03-23] MEDS: glyBURIDE 5 MG TABLET GT SCH ×2 (08:25→17:23)
[2022-03-23] MEDS: DILTIAZEM HCL 30 MG TABLET GT SCH ×4 (08:25→20:27)
[2022-03-23] MEDS: AMIODARONE HCL 200 MG TABLET GT SCH (08:25)
[2022-03-23] MEDS: CARVEDILOL 3.125 MG TABLET GT SCH ×2 (08:26→17:24)
[2022-03-23] MEDS: FERROUS SULFATE (325 MG) 325 MG/TAB TABLET GT SCH (08:26)
[2022-03-23] MEDS: ASPIRIN 81 MG TAB.CHEW GT SCH (08:26)
[2022-03-23] MEDS: BENAZEPRIL HCL 20 MG TABLET GT SCH (08:26)
[2022-03-23] MEDS: PANTOPRAZOLE 40 MG/PACK PACK GT SCH (08:26)
[2022-03-23] MEDS: FUROSEMIDE 40 MG/4 ML VIAL IV SCH ×2 (08:40→17:23)
[2022-03-23] MEDS: THERAHONEY GEL 1.5 OZ TUBE TP SCH (09:46)
[2022-03-23 10:24] LABS: ABG BASE EXCESS 10.2 mmol/L; ABG PCO2 35.9 mmHg (35.0-45.0); ABG PH 7.578 (7.350-7.450); ABG PO2 156.8 mmHg (75.0-100.0); COHb 0.3 % (0.5-1.5); MetHb 0.3 % (0.0-1.5); SITE, ABG Right Radial; VENT MODE, BG COOL AERO 35%
--- NOTE | 2022-03-23 11:38 | NUR ---
SOFTWARE QUALITY TEST ENGINEER NOTES WOUND DEBRIDEMENT DONE BY CHADD ROGERS. PT TOLERATED IT WELL.
--- NOTE | 2022-03-23 11:38 | NUR ---
DIE DESIGNER NOTES: ABG RESULTS RELAYED TO DR ARENAS WITH ORDERS TO KEEP THE PT OFF THE VENTILATOR. NOTED AND CARRIED OUT
[2022-03-23 12:00] VITALS: BP 109/60
[2022-03-23] MEDS: CEFTRIAXONE 1 G in IV D5W 50 ML IV SCH (15:50)
[2022-03-23 16:00] VITALS: BP 127/65
--- NOTE | 2022-03-23 18:21 | NUR ---
MOLD STRIPPER CLOSING NOTES ALL DUE MEDS AND TX GIVEN ORDERED. PT TOLERATED EVERYTHING WELL. CURRENTLY ON COOL AEROSOL 6L ON 28% FIO2 TOLERATING IT WELL WITH O2 SATURATION AT 99%. IV ACCESS ON JACQUES ML PATENT AND INTACT. GT PATENT AND INTACT WITH GTF RUNNING AT PRESCRIBED RATE. HOB ELEVATED TO 30-45 DEGREES. SIDERAILS UP AT ALL TIMES. WILL ENDORSE TO ONCOMING NURSE.
[2022-03-23 20:00] VITALS: BP 104/58
--- NOTE | 2022-03-23 20:00 | NUR ---
THUMB SEWER OPENING NOTES: PATIENT IN BED, A&O X 2,ABLE TO MOUTH WORDS NEEDS V/S STABLE AFEBRILE WITH PORTEX 8.5 COOL AEROSOL SETINGS , 5 LITERS O2 28% O2 SAT 97%. NO SOB NO DISTRESS NOTED BREATHING EVEN AND UNLABORED,SR HR 79 ON MONITOR, NO SIGNS OF PAIN, WITH JACQUES MIDLINE, FLUSHES WELL SITE CLEAR. G TUBE GLUCERNA 1.5 @55 ML/HR ONGOING, CHECKED FOR PLACEMENT, O RESIDUAL. PATIÑO CATH IN PLACE, DRAINING TO YELLOW COLORED URINE. BOTH WRIST RESTRAINTS RELEASED AND CHECKED FOR CIRCULATION THEN Q [address] ME[address] PL[address] BED LOW/LOCKED. HOB 3O DEG, SR UP X 2, CALL LIGHT WITHIN REACH. WILL CONTINUE TO MONITOR. Addendum: 03/24/22 at 0118 by VALENTINA RODRIGUEZ RN PTS ON SHILATISHA #8 NOT PORTEX
[2022-03-23] MEDS: ATORVASTATIN 40 MG TABLET GT SCH (21:50)
[2022-03-23] MEDS: DAKINS QUARTER STRENGTH (0.125%) 480 ML BOTTLE TOP SCH (22:25)
[2022-03-24] VITALS: BP 96/60
[2022-03-24] MEDS: INSULIN REGULAR, HUMAN 100 UNIT/ML 3 ML VIAL SQ PRN ×3 (00:45→12:43)
[2022-03-24] MEDS: BLOOD SUGAR DIAGNOSTIC 1 EACH STRIP IN SCH ×3 (00:46→12:40)
--- NOTE | 2022-03-24 00:49 | NUR ---
color television console monitor notes blood sugar at 12mn is 238mg/dl 4 units if regiular insulin given per sliding scale pts on gt feeding.
--- NOTE | 2022-03-24 01:57 | NUR ---
RT pt received on CA 28%. Juancho dominique 8. trach patent and secure. ambu bag at bedside. spare trach at bedside. no sob, no resp distress. scant secretions suctioned via trach. lung sound clear throughout.
[2022-03-24] MEDS: IPRATROPIUM NEB FS 0.5 MG/2.5 ML AMPUL.NEB NEB SCH ×3 (03:53→10:52)
[2022-03-24] MEDS: ALBUTEROL FS 2.5 MG/3 ML VIAL.NEB NEB SCH ×3 (03:53→10:52)
[2022-03-24 04:00] VITALS: BP 121/76
--- NOTE | 2022-03-24 05:36 | NUR ---
telecommunications network planner notes blood sugar at 6am is 230mg/dl 4 units of regular insulin given per sliding scale
--- NOTE | 2022-03-24 06:30 | NUR ---
PETROLEUM ENGINEERING PROFESSOR CLOSING NOTES PTS REMAIN ON COOL AEROSOL 5 LITERS WELL TOLERATED . ON 28% FIO2 IV ACCESS ON JACQUES ML PATENT AND INTACT. GT FEEDING PATENT AND INTACT NO RESIDUAL NOTED . HOB ELEVATED TO 30-45 DEGREES. SIDERAILS UP AT ALL TIMES. WILL ENDORSE TO ONCOMING NURSE.REMAINS ON BILATERAL RESTRAINT.
[2022-03-24 06:38] LABS: ALBUMIN 2.3 g/dL (3.4-5.0); BILIRUBIN,TOTAL 0.6 mg/dL (0.2-1.0); CALCIUM, SERUM 8.9 mg/dL (8.5-10.1); CREATININE 2.4 mg/dL (0.6-1.3); MAGNESIUM 2.1 mg/dL (1.8-2.4); PHOSPHORUS 2.9 mg/dL (2.5-4.9); POTASSIUM 3.8 mmol/L (3.5-5.1); TOTAL PROTEIN, SERUM 6.9 g/dL (6.4-8.2)
--- NOTE | 2022-03-24 07:10 | NUR ---
GRINDER SET UP OPERATOR GEAR TOOL OPENING NOTES RECEIVED PT AWAKE IN BED AOX2. NO COMPLAINTS OF PAIN OR DISCOMFORT AT THIS TIME. RESPIRATIONS ARE EQUAL AND UNLABORED WITH NO SOB. PT IS CURRENTLY ON COOL AEROSOL 5L WITH FIO2 AT 28% AND TOLERATING IT WELL. GT IS PATENT AND INTACT. IV ACCESS ON JACQUES MIDLINE PATENT AND INTACT. HOB ELEVATED TO 30-45 DEGREES. SIDERAILS UP AT ALL TIMES. BED LOCKED AND AT ITS LOWEST SETTING. CALL LIGHT WITHIN REACH. WILL CONTINUE TO MONITOR.
[2022-03-24 07:35] LABS: BASOPHILS % (AUTO) 0.4 % (0.0-2.0); EOSINOPHILS % (AUTO) 0.6 % (0.0-6.0); HEMATOCRIT 28 % (39-51); HEMOGLOBIN 9.3 g/dL (13.5-17.5); LYMPHOCYTES # (AUTO) 0.7 K/uL (0.8-4.8); LYMPHOCYTES % (AUTO) 9.2 % (20.0-44.0); MEAN CORPUSCULAR HGB CONC 34 g/dl (31.0-36.0); MEAN CORPUSCULAR VOLUME 91 fL (80-96); MONOCYTES # (AUTO) 0.3 K/uL (0.1-1.30); MONOCYTES % (AUTO) 4.1 % (2.0-12.0); NEUTROPHILS # (AUTO) 6.5 K/uL (1.8-8.9); NEUTROPHILS % (AUTO) 85.7 % (43.0-81.0); PLATELET COUNT (AUTO) 218 K/uL (150-450); RED BLOOD CELL COUNT(AUTO) 3.05 MIL/uL (4.5-6.0); WHITE BLOOD COUNT (AUTO) 7.6 K/uL (4.3-11.0)
[2022-03-24 08:00] VITALS: BP 111/64
--- NOTE | 2022-03-24 08:34 | NUR ---
TRACH CUFFED FULLY DEFLATED Addendum: 03/24/22 at 0835 by AZUL FALLON RT Amended: Links added.
[2022-03-24] MEDS: BENAZEPRIL HCL 20 MG TABLET GT SCH (09:00)
[2022-03-24] MEDS: CARVEDILOL 3.125 MG TABLET GT SCH (09:00)
[2022-03-24] MEDS: FUROSEMIDE 40 MG/4 ML VIAL IV SCH (09:11)
[2022-03-24] MEDS: CHLORHEXIDINE GLUCONATE 15 ML UDC MM SCH (09:11)
[2022-03-24] MEDS: AMIODARONE HCL 200 MG TABLET GT SCH (09:11)
[2022-03-24] MEDS: FERROUS SULFATE (325 MG) 325 MG/TAB TABLET GT SCH (09:12)
[2022-03-24] MEDS: glyBURIDE 5 MG TABLET GT SCH (09:12)
[2022-03-24] MEDS: ASPIRIN 81 MG TAB.CHEW GT SCH (09:12)
[2022-03-24] MEDS: QUETIAPINE FUMARATE 25 MG TABLET GT SCH (09:12)
[2022-03-24] MEDS: CLOPIDOGREL BISULFATE 75 MG TABLET GT SCH (09:12)
[2022-03-24] MEDS: DILTIAZEM HCL 30 MG TABLET GT SCH ×2 (09:12→12:44)
[2022-03-24] MEDS: PANTOPRAZOLE 40 MG/PACK PACK GT SCH (09:12)
[2022-03-24] MEDS: THERAHONEY GEL 1.5 OZ TUBE TP SCH (09:13)
[2022-03-24] MEDS: DAKINS QUARTER STRENGTH (0.125%) 480 ML BOTTLE TOP SCH (09:13)
--- NOTE | 2022-03-24 09:30 | NUR ---
RN NOTES DUE MEDS GIVEN
[2022-03-24] MEDS: ONDANSETRON HCL/PF 4 MG/2 ML VIAL IVP PRN (11:27)
[2022-03-24 12:00] VITALS: BP 119/69
--- NOTE | 2022-03-24 12:29 | NUR ---
RN NOTES ATTEMPTED TO GIVE REPORT TO [facility], PER STAFF, THEY ARE STILL BUSY WITH ADMISSION PAPERS AND STUFF. I LEFT THEM MARIYA NUMBER TO CALL US FOR REPORT BIRGIT GREGORIO, CASE MGT. NOTIFIED
[2022-03-24 12:44] VITALS: BP 119/69
--- NOTE | 2022-03-24 13:12 | NUR ---
RN NOTES PATIENT TO BE DISCHARGED TO [facility] PER MD IN STABLE CONDITION. PROVIDED DC INSTRUCTIONS, MED CON LIST AND HEALTH TEACHINGS, PATIENT TO FOLLOW UP WITH PCP PER FACILITY PROTOCOL. IV ACCESS TO BE REMOVED, PHOTOS OF SKIN ISSUES TAKEN AND INCORPORATED IN PATIENT'S CHART. GTUBE PATENT INTACT FLUSHED. PATIÑO CATH IN PLACE, PATENT INTACT. NO BELONGINGS. ALL PAPER WORKS SIGNED BY DAUGHTER. AMBULANCE STONE SETTER APPRENTICE AT 1400. REPORT GIVEN TO [facility] FACILITY STAFF.
--- NOTE | 2022-03-24 14:25 | NUR ---
RN NOTES PATIENT PICKED UP BY [facility] TO TRANSPORT PATIENT TO FACILITY. STABLE CONDITION. IV ACCESS ON ON LEFT UPPER ARM REMOVED, CATH TIP COMPLETE, PRESSURE AND DRESSING APPLIED. NO BLEEDING.
== END 2022-03-24 14:25 | DRG 951 ==
LOC: ER 05:53 → TELE1 16:15
PROC: 5A1955Z Respiratory Ventilation, Greater than 96 Consecutive Hours (ICD-10-PCS; principal; 2022-03-11)
PROC: 0KBG0ZZ Excision of Left Trunk Muscle, Open Approach (ICD-10-PCS; 2022-03-15)
PROC: 0KBP0ZZ Excision of Left Hip Muscle, Open Approach (ICD-10-PCS; 2022-03-15)
PROC: 0W993ZZ Drainage of Right Pleural Cavity, Percutaneous Approach (ICD-10-PCS; 2022-03-17)
PROC: 0W9B3ZZ Drainage of Left Pleural Cavity, Percutaneous Approach (ICD-10-PCS; 2022-03-18)
PROC: 30233N1 Transfusion of Nonautologous Red Blood Cells into Peripheral Vein, Percutaneous Approach (ICD-10-PCS; 2022-03-22)
DX: I13.0 Hypertensive heart and chronic kidney disease with heart failure and stage 1 through stage 4 chronic kidney disease, or unspecified chronic kidney disease (principal); J96.21 Acute and chronic respiratory failure with hypoxia; N17.0 Acute kidney failure with tubular necrosis; L89.154 Pressure ulcer of sacral region, stage 4; L89.124 Pressure ulcer of left upper back, stage 4; R53.2 Functional quadriplegia; Z99.11 Dependence on respirator [ventilator] status; Z93.0 Tracheostomy status; E11.22 Type 2 diabetes mellitus with diabetic chronic kidney disease; D63.1 Anemia in chronic kidney disease; E88.09 Other disorders of plasma-protein metabolism, not elsewhere classified; I50.23 Acute on chronic systolic (congestive) heart failure; B96.1 Klebsiella pneumoniae [K. pneumoniae] as the cause of diseases classified elsewhere; I25.5 Ischemic cardiomyopathy; N18.9 Chronic kidney disease, unspecified; E11.65 Type 2 diabetes mellitus with hyperglycemia; R13.10 Dysphagia, unspecified; Z93.1 Gastrostomy status; Z20.822 Contact with and (suspected) exposure to COVID-19; I25.10 Atherosclerotic heart disease of native coronary artery without angina pectoris; N39.0 Urinary tract infection, site not specified; E87.6 Hypokalemia; Z95.1 Presence of aortocoronary bypass graft; E11.51 Type 2 diabetes mellitus with diabetic peripheral angiopathy without gangrene; E83.42 Hypomagnesemia
CPT/HCPCS: 31720; 36410; 36415; 36600; 71045-TC; 76770-TC; 80048-TC; 80053-TC; 80076-TC; 81001; 82803-TC; 82962-TC; 83605-TC; 83735-TC; 83880; 84100-TC; 84155-TC; 84484-TC; 85025-TC; 85730-TC; 86706; 86850-TC; 87081-TC; 87086-TC; 87102-TC; 87340; 89051-TC; 92526; 92611-TC; 93307-TC; 94002-TC; 94003-TC; 94640-TC; 94664-TC; 94760-TC; 94762-TC; 94799-TC; 97110-TC; 97112-TC; 97116-TC; 97530-TC; 97535-TC; 99082-TC; A4349; A4629; A6403; A6407; A7526; C9803; G0378; J0696; J1815; J1940; J2060; J2405; J3475; J3480; J3490; J7030; J7050; J7060; P9016; Q9967

== ENCOUNTER 2022-03-27 18:48 | Emergency (ER) | payer OTHER ==
[~2022-03-27] VITALS: Ht 170.2 cm; Wt 57.2 kg
[~2022-03-27 18:48] MED LIST: AMIO200T5 GT; ASPI-1169 GT; ATOR80TA GT; BENA20TA9 GT; CARV3.122 GT; CHLO473M3 MM; CLOP75TA15 GT; DILT240T12 GT; FERR325T23 GT; GLYB5TAB7 GT; IPRA4AER IH; KRIL1CAP GT; METF-442 GT; NUT.237L31 GT; PANT40TA2 GT; QUET25TA GT
--- NOTE | 2022-03-27 19:10 | NUR ---
[id number] FOR UNWITNESSED GLF 30 MINS RESIDENTIAL SUPPORT WORKER. UNKNOWN LOC. PATIENT IS AAOX4. CAME WITH TRACHE ATTACHED TO TPIECE AT 3LPM. PLACED COMFORTABLY IN BED. VITALS CHECKED.
--- NOTE | 2022-03-27 19:10 | NUR ---
PT CAME WITH IFC F16 ATTACHED TO UROG
--- NOTE | 2022-03-27 19:45 | NUR ---
PERINEAL CARE DONE
--- NOTE | 2022-03-27 19:52 | NUR ---
BLOOD DRAWN BY [facility]
--- NOTE | 2022-03-27 20:08 | NUR ---
PT TO CT [facility]IA [facility]
[2022-03-27 20:14] LABS: BASOPHILS % (AUTO) 0.3 % (0.0-2.0); EOSINOPHILS % (AUTO) 1.7 % (0.0-6.0); HEMATOCRIT 27 % (39-51); HEMOGLOBIN 8.8 g/dL (13.5-17.5); LYMPHOCYTES # (AUTO) 0.7 K/uL (0.8-4.8); LYMPHOCYTES % (AUTO) 7.9 % (20.0-44.0); MEAN CORPUSCULAR HGB CONC 32 g/dl (31.0-36.0); MEAN CORPUSCULAR VOLUME 91 fL (80-96); MONOCYTES # (AUTO) 0.3 K/uL (0.1-1.30); MONOCYTES % (AUTO) 3.5 % (2.0-12.0); NEUTROPHILS # (AUTO) 7.4 K/uL (1.8-8.9); NEUTROPHILS % (AUTO) 86.6 % (43.0-81.0); PLATELET COUNT (AUTO) 278 K/uL (150-450); RED BLOOD CELL COUNT(AUTO) 2.97 MIL/uL (4.5-6.0); WHITE BLOOD COUNT (AUTO) 8.5 K/uL (4.3-11.0)
--- NOTE | 2022-03-27 20:20 | NUR ---
PT RETURN FROM CT.
[2022-03-27 22:07] LABS: CALCIUM, SERUM 9.3 mg/dL (8.5-10.1); POTASSIUM 3.8 mmol/L (3.5-5.1)
--- NOTE | 2022-03-27 22:17 | NUR ---
CALLED [facility] FOR TRANSPORTATION ETA IS 1.5-2HR
--- NOTE | 2022-03-27 22:35 | NUR ---
TRANSPORTATION ARRANGED FOR PATIENT
--- NOTE | 2022-03-27 22:47 | NUR ---
CALLED FACILITY SEVERAL TIMES. NOBODY PICKING UP
--- NOTE | 2022-03-27 23:14 | NUR ---
REPORT GIVEN TO JESSENIA GUPTA IN THE FACILITY
--- NOTE | 2022-03-28 01:02 | NUR ---
TRANSFERRED BACK TO FACILITY VIA [facility]
[2022-03-28 01:03] VITALS: BP 124/71
--- NOTE | 2022-03-28 01:03 | NUR ---
Patient discharged to home in stable condition. Written and verbal after care instructions given. Patient verbalizes understanding of instruction.
== END 2022-03-28 01:03 | disposition home or self-care (01) ==
LOC: ER 18:54
DX: S00.81XA Abrasion of other part of head, initial encounter (principal); E11.22 Type 2 diabetes mellitus with diabetic chronic kidney disease; I13.0 Hypertensive heart and chronic kidney disease with heart failure and stage 1 through stage 4 chronic kidney disease, or unspecified chronic kidney disease; I50.9 Heart failure, unspecified; N18.9 Chronic kidney disease, unspecified; I25.10 Atherosclerotic heart disease of native coronary artery without angina pectoris; Z79.82 Long term (current) use of aspirin; Z79.84 Long term (current) use of oral hypoglycemic drugs; Z79.899 Other long term (current) drug therapy; W18.30XA Fall on same level, unspecified, initial encounter; Y93.89 Activity, other specified; Y92.129 Unspecified place in nursing home as the place of occurrence of the external cause; Y99.9 Unspecified external cause status
CPT/HCPCS: 36415; 70450-TC; 80048-TC; 85025-TC

== ENCOUNTER 2022-04-26 10:25 | Inpatient (IN) | payer OTHER ==
[2022-04-26] VITALS (15 sets, daily range): BP systolic 98–121; BP diastolic 61–81
[~2022-04-26] VITALS: Ht 172.7 cm; Wt 51.7 kg
--- NOTE | 2022-04-26 10:25 | NUR ---
BIB RA [facility] FROM SNF FOR BEING MORE ALTERED THAN NORMAL LKW THIS MORNING. 1 DOSE OF ATROPINE GIVEN ON ROUTE.
--- NOTE | 2022-04-26 10:26 | NUR ---
PT PLACED IN BED AND MONITOR. MD AT BEDSIDE. IV ACCESS ESTEBLISHED 20G LEFT AC AND 18G RIGHT FOREARM. BLOOD DRAWN AND SENT TO LAB.
--- NOTE | 2022-04-26 10:40 | NUR ---
COVID TEST COLLECTED AND SENT
--- NOTE | 2022-04-26 10:53 | NUR ---
PT TAKEN TO CT [facility]IA [facility] ACCOMPANIED BY RN AND RT
[2022-04-26] MEDS ORDERED: IV NS 0.9% 1,000 ML BAG IV ONE (11:00)
[2022-04-26] MEDS ORDERED: Calcium Gluconate 1GM/10ML 4.65 MEQ in IV NS 0.9% 100 ML IV ONE (11:00)
[2022-04-26] MEDS ORDERED: NICO-676 TD (11:03)
[2022-04-26] MEDS ORDERED: INSU100V3 SQ (11:03)
[2022-04-26] MEDS ORDERED: NITR0.4T48 SL (11:03)
[2022-04-26] MEDS ORDERED: ACET-868 GT (11:03)
[2022-04-26] MEDS ORDERED: INSU100V7 SQ (11:03)
[2022-04-26] MEDS ORDERED: IPRA4AER IH (11:03)
[2022-04-26] MEDS ORDERED: DILT60TA3 GT (11:03)
[2022-04-26] MEDS ORDERED: ZINC220C6 GT (11:03)
[2022-04-26] MEDS ORDERED: ASCO-352 GT (11:03)
[2022-04-26] MEDS ORDERED: FURO-144 GT (11:03)
[2022-04-26] MEDS ORDERED: MULT-447 GT (11:03)
[2022-04-26] MEDS ORDERED: ACET-2605 GT (11:03)
[2022-04-26] MEDS ORDERED: MELA5TAB GT (11:03)
[2022-04-26] MEDS ORDERED: HYDR-4303 GT (11:03)
--- NOTE | 2022-04-26 11:04 | NUR ---
RETURN FROM CT
--- NOTE | 2022-04-26 11:10 | NUR ---
CALLED DR. BAILEY (PCP) REGARDING IF HE WANTED TO ADMIT THE PT OR EPIC TO ADMIT AWAITING CALL BACK FROM PCP
[2022-04-26 11:16] LABS: BASOPHILS # (AUTO) 0.1 K/uL (0.0-0.2); BASOPHILS % (AUTO) 0.5 % (0.0-2.0); EOSINOPHILS % (AUTO) 0.6 % (0.0-6.0); HEMATOCRIT 27 % (39-51); HEMOGLOBIN 8.6 g/dL (13.5-17.5); LYMPHOCYTES # (AUTO) 2.7 K/uL (0.8-4.8); LYMPHOCYTES % (AUTO) 25.3 % (20.0-44.0); MEAN CORPUSCULAR HGB CONC 32 g/dl (31.0-36.0); MEAN CORPUSCULAR VOLUME 93 fL (80-96); MONOCYTES # (AUTO) 0.3 K/uL (0.1-1.30); MONOCYTES % (AUTO) 2.4 % (2.0-12.0); NEUTROPHILS # (AUTO) 7.6 K/uL (1.8-8.9); NEUTROPHILS % (AUTO) 71.2 % (43.0-81.0); PLATELET COUNT (AUTO) 398 K/uL (150-450); RED BLOOD CELL COUNT(AUTO) 2.94 MIL/uL (4.5-6.0); WHITE BLOOD COUNT (AUTO) 10.7 K/uL (4.3-11.0)
--- NOTE | 2022-04-26 11:34 | NUR ---
ALTERED PT. ADMITTED IN ER BED 5 PLACED INTO MECHANICAL VENT VIA TRACH. EMERGENCY TRACH CHANGED ORDER FROM UNCUFFED TO CUFFED WITH SAME SIZE FOR VENTILATION. VENT SETTINGS BELOW ORDERED: AC 14 VT 500ML FIO2 100% PEEP +10 BREATH SOUNDS CLEAR BILATERAL POST TRACH CHANGED, SXN NO SECRETIONS AT ALL. VENT PLUGGED INTO RED OUTLET WITH ALARMS ON AND FUNCTIONING BVM AND SPARE TRACH @ BEDSIDE. Addendum: 04/26/22 at 1140 by AZUL FALLON RT Amended: Links added.
--- NOTE | 2022-04-26 11:38 | NUR ---
NOTIFIED NURSING SUP OF PT BED
[2022-04-26 11:45] LABS: CALCIUM, SERUM 9.3 mg/dL (8.5-10.1); CARBON DIOXIDE 19 mmol/L (21-32); CHLORIDE 90 mmol/L (98-107); CREATININE 2.8 mg/dL (0.6-1.3); SODIUM SERUM 127 mmol/L (136-145)
[2022-04-26 11:56] LABS: ALANINE AMINOTRANSFERASE 172 U/L (12-78); ALBUMIN 2.4 g/dL (3.4-5.0); ALKALINE PHOSPHATASE 221 U/L (46-116); ASPARTATE AMINOTRANSFERASE 192 U/L (15-37); BILIRUBIN,DIRECT 0.3 mg/dL (0.0-0.2); BILIRUBIN,TOTAL 0.5 mg/dL (0.2-1.0); TOTAL PROTEIN, SERUM 7.9 g/dL (6.4-8.2)
[2022-04-26] MEDS ORDERED: FUROSEMIDE 40 MG/4 ML VIAL ONE (11:58)
[2022-04-26 11:59] LABS: ABG BASE EXCESS -4.5 mmol/L; ABG PH 7.447 (7.350-7.450); ABG PO2 557.9 mmHg (75.0-100.0); COHb 0.3 % (0.5-1.5); MetHb 0.2 % (0.0-1.5); O2Hb 99.1 % (94.0-97.0); PEEP,BG 10 cm H2O; SITE, ABG Right Brachial; VT, ABG 500 mL
[2022-04-26] MEDS ORDERED: INSULIN REGULAR, HUMAN 100 UNIT/ML 10 ML VIAL ONE (11:59)
[2022-04-26] MEDS ORDERED: ALBUTEROL FS 2.5 MG/3 ML VIAL.NEB NEB ONE (12:00)
[2022-04-26] MEDS ORDERED: INSULIN REGULAR, HUMAN 100 UNIT/ML 10 ML VIAL IV ONE (12:00)
[2022-04-26] MEDS ORDERED: FUROSEMIDE 40 MG/4 ML VIAL IV ONE ×2 (12:00→15:30)
[2022-04-26 12:05] LABS: GLUCOSE 407 mg/dL (74-106); POTASSIUM 6.7 mmol/L (3.5-5.1)
[2022-04-26 12:06] LABS: UREA NITROGEN, BLOOD 107 mg/dL (7-18)
[2022-04-26] MEDS ORDERED: ALBUTEROL FS 2.5 MG/3 ML VIAL.NEB ONE (12:06)
--- NOTE | 2022-04-26 12:16 | NUR ---
VENT CHANGES BELOW ORDER: AC 12 VT 400ML FIO2 30% PEEP +5 RN NOTIFIED Addendum: 04/26/22 at 1216 by AZUL FALLON RT Amended: Links added.
--- NOTE | 2022-04-26 12:25 | NUR ---
DAUGHTER ENRIKE LEFT CONTACT # [phone]
--- NOTE | 2022-04-26 13:28 | NUR ---
EPIC PAGED, AWAITING HOSPITALIST CALL BACK.
--- NOTE | 2022-04-26 13:47 | NUR ---
bed given 258
--- NOTE | 2022-04-26 13:52 | NUR ---
NURSE CALLED FROM [facility] REGARDING PT UPDATE
[2022-04-26] MEDS ORDERED: VANCOMYCIN 1 GM in IV D5W 250 ML IV ONE (14:00)
[2022-04-26] MEDS ORDERED: PIPERACILLIN /TAZOBACTAM 3.375 G in IV D5W 50 ML IV ONE (14:00)
--- NOTE | 2022-04-26 14:35 | NUR ---
REPORT GIVEN TO ICU STAFF NURSE ROOM 258 FOR ALEXIS
--- NOTE | 2022-04-26 14:36 | NUR ---
PT. TRANSFERRED FROM ER TO ICU 258. PT USED SAME VENT SAME SETTINGS. VENT PLUGGED INTO RED OUTLET WITH AMBU BAG @ BEDSIDE Addendum: 04/26/22 at 1438 by AZUL FALLON RT Amended: Links added.
[2022-04-26 15:53] LABS: BILIRUBIN,URINE NEGATIVE (NEGATIVE); COLOR,URINE YELLOW (YELLOW); LEUKOCYTE ESTERASE ,URINE 3+ (NEGATIVE); NITRITE, URINE NEGATIVE (NEGATIVE); PROTEIN,URINE TRACE mg/dl (NEGATIVE); UGLUCOSE NEGATIVE (NEGATIVE)
[2022-04-26 16:07] LABS: BACTERIA,URINE Many /HPF (None Seen)
[2022-04-26 16:08] LABS: SQUAMOUS EPITHELIAL CELL,UR Few /HPF (None Seen); TRIPLE PHOSPHATE CRYSTAL,UR Moderate /HPF (None Seen)
--- NOTE | 2022-04-26 18:10 | NUR ---
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 Acute metabolic encephalopathy CXR shows: Moderate right and small left pleural effusions with atelectatic changes of the lung bases. Findings are on a background of moderate vascular congestion. Moderate right and small left pleural effusions. 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 H/H stable Corrected Hyperkalemia 6.7 INNA, Likely ATN Hyponnatremia, likely hypervolemic Dysphagia with PEG Functional quadriplegia Hx Thoracentesis Follow Up Admitting orders
[2022-04-26] MEDS: CARVEDILOL 3.125 MG TABLET GT SCH (18:27)
[2022-04-26] MEDS ORDERED: ONDANSETRON HCL/PF 4 MG/2 ML VIAL IVP PRN (18:30)
[2022-04-26] MEDS ORDERED: GLUCERNA 1.5 1,000 ML BOTTLE GT SCH ×2 (18:30→20:56)
[2022-04-26] MEDS ORDERED: DEXTROSE 50%-WATER 50 ML DISP.SYRIN IV PRN (18:30)
[2022-04-26] MEDS: CHLORHEXIDINE GLUCONATE 15 ML UDC MM SCH (18:32)
[2022-04-26 18:59] LABS: CALCIUM, SERUM 9.6 mg/dL (8.5-10.1); CREATININE 2.8 mg/dL (0.6-1.3)
[2022-04-26] MEDS: ALBUTEROL FS 2.5 MG/3 ML VIAL.NEB NEB SCH (19:56)
[2022-04-26] MEDS: IPRATROPIUM NEB FS 0.5 MG/2.5 ML AMPUL.NEB NEB SCH (19:56)
[2022-04-26] MEDS ORDERED: ENOXAPARIN SODIUM 30 MG/0.3 ML DISP.SYRIN SQ SCH (20:00)
[2022-04-26] MEDS: ZOSYN IVPB 2.25 G in IV D5W 50ml IV SCH (20:03)
--- NOTE | 2022-04-26 20:22 | NUR ---
ICU/RN: pt very nauseated. will hold tube feeding for now. zofran administered as ordered.
[2022-04-26] MEDS: ATORVASTATIN 40 MG TABLET PO SCH (22:00)
[2022-04-27] VITALS (21 sets, daily range): BP systolic 76–129; BP diastolic 39–90
[2022-04-27] MEDS ORDERED: IPRATROPIUM/ALBUTEROL INHALER IH SCH
[2022-04-27] MEDS: BLOOD SUGAR DIAGNOSTIC 1 EACH STRIP IN SCH ×4 (00:10→17:48)
[2022-04-27] MEDS: DILTIAZEM HCL 30 MG TABLET GT SCH ×4 (00:12→17:44)
[2022-04-27] MEDS: INSULIN REGULAR, HUMAN 100 UNIT/ML 3 ML VIAL SQ PRN ×4 (00:33→23:57)
[2022-04-27] MEDS: INSULIN GLARGINE, 100 UNIT/ML CARTRIDGE SQ SCH ×2 (00:33→23:58)
[2022-04-27] MEDS: GLUCERNA 1.2 1,000 ML BOTTLE GT PRN (00:58)
[2022-04-27] MEDS: IPRATROPIUM NEB FS 0.5 MG/2.5 ML AMPUL.NEB NEB SCH ×4 (02:04→19:52)
[2022-04-27] MEDS: ALBUTEROL FS 2.5 MG/3 ML VIAL.NEB NEB SCH ×4 (02:04→19:52)
[2022-04-27] MEDS: ZOSYN IVPB 2.25 G in IV D5W 50ml IV SCH ×4 (02:28→20:50)
[2022-04-27 05:25] LABS: BASOPHILS % (AUTO) 0.2 % (0.0-2.0); EOSINOPHILS % (AUTO) 0.5 % (0.0-6.0); LYMPHOCYTES # (AUTO) 1.1 K/uL (0.8-4.8); LYMPHOCYTES % (AUTO) 8.5 % (20.0-44.0); MEAN CORPUSCULAR HGB CONC 32 g/dl (31.0-36.0); MEAN CORPUSCULAR VOLUME 88 fL (80-96); MONOCYTES # (AUTO) 0.7 K/uL (0.1-1.30); MONOCYTES % (AUTO) 5.8 % (2.0-12.0); NEUTROPHILS # (AUTO) 10.6 K/uL (1.8-8.9); PLATELET COUNT (AUTO) 320 K/uL (150-450); RED BLOOD CELL COUNT(AUTO) 2.25 MIL/uL (4.5-6.0); WHITE BLOOD COUNT (AUTO) 12.5 K/uL (4.3-11.0)
[2022-04-27 05:27] LABS: HEMATOCRIT 20 % (39-51); HEMOGLOBIN 6.4 g/dL (13.5-17.5)
[2022-04-27 05:39] LABS: CALCIUM, SERUM 9.3 mg/dL (8.5-10.1); CREATININE 2.7 mg/dL (0.6-1.3); MAGNESIUM 2.7 mg/dL (1.8-2.4); PHOSPHORUS 6.6 mg/dL (2.5-4.9); POTASSIUM 4.5 mmol/L (3.5-5.1)
--- NOTE | 2022-04-27 05:48 | NUR ---
ICU/RN: CRITICAL HGB 6.5 RELAYED TO [facility] AWAITING CALL BACK.
--- NOTE | 2022-04-27 06:57 | NUR ---
ICU/RN: RE-SENT RESULTS TO [facility]. NO CALL BACK. WILL ENDORSE TO AM SHIFT.
--- NOTE | 2022-04-27 07:16 | NUR ---
ICU/RN: HBG RESULTS ENDORSED TO AM NURSE.
--- NOTE | 2022-04-27 07:30 | NUR ---
staff nurse icu resource team opening note pt is awake, alert and oriented. pt is on mechanical vent with ordered settings tolerating well. pt able to nod to simple questions. pt has del cid cathether yellow color draining to gravity. pt has right iv and left iv. iv intact patent, flushing well. no pain or discomfort noted at this time. pt on tele monitor currently sinus rhytm. all safety measures in place. bed locked at lowest position. side rails on up x2. bed alarm on.
[2022-04-27] MEDS: CARVEDILOL 3.125 MG TABLET GT SCH ×2 (08:06→16:11)
[2022-04-27] MEDS: ASPIRIN 81 MG TAB.CHEW GT SCH (08:27)
[2022-04-27] MEDS: MULTIVITAMINS,THERAGRAN 1 UDTAB TABLET GT SCH (08:27)
[2022-04-27] MEDS: FERROUS SULFATE (325 MG) 325 MG/TAB TABLET GT SCH (08:27)
[2022-04-27] MEDS: ZINC SULFATE 220 MG CAPSULE GT SCH (08:28)
[2022-04-27] MEDS: CHLORHEXIDINE GLUCONATE 15 ML UDC MM SCH ×2 (08:28→16:44)
[2022-04-27] MEDS: ASCORBIC ACID 500 MG TABLET GT SCH (08:28)
[2022-04-27] MEDS: CLOPIDOGREL BISULFATE 75 MG TABLET GT SCH (09:00)
[2022-04-27] MEDS ORDERED: MULTIVITAMIN LIQ 5 ML UDC GT SCH (09:00)
[2022-04-27 09:11] LABS: IRON, SERUM 25 ug/dl (50-175); TOTAL IRON BINDING CAPACITY 197 ug/dl (250-450)
[2022-04-27 09:46] LABS: FERRITIN 2035 ng/mL (8-388)
--- NOTE | 2022-04-27 10:50 | NUR ---
rn note received telephone consent from Dorita patient's daughter for blood transfusion for hgb 6.4. co witnessed by Howard Servin RN. pt daughter agreed and verbalized understanding. consent signed and placed in chart
[2022-04-27] MEDS ORDERED: Z GUARD REMEDY 4 OZ OINT TP PRN (11:00)
--- NOTE | 2022-04-27 11:02 | NUR ---
WOUND CARE CONSULT: PT PRESENTS WITH STAGE 4 PRESSURE ULCER TO SACRUM, UPPER BACK DISCOLORATION/SCARRING AND DRY ESCHAR TO LEFT LOWER LEG, ALL PRESENT ON ADMISSION. DR ANNE AND DR JHA CALLED FOR SURGICAL AND DPM CONSULTS. DISCUSSED SKIN PROTECTION WITH NURSING STAFF. PT DEMONSTRATES ABILITY TO ASSIST WITH TURNING AND REPOSITIONING IN BED. MD IN AGREEMENT WITH PLAN OF CARE. Addendum: 04/27/22 at 1104 by ERWIN SONI WNDNU Amended: Links added.
--- NOTE | 2022-04-27 12:07 | NUR ---
rn note notified dr. gupta that hgb 6.4 pending blood transfusion. and if ok to hold plavix for now. said ok to hold. orders noted and carried out
[2022-04-27] MEDS: FAMOTIDINE/PF INJ 20 MG/2 ML VIAL IV SCH ×2 (12:11→21:25)
[2022-04-27] MEDS: AMIODARONE HCL 200 MG TABLET GT SCH (12:16)
--- NOTE | 2022-04-27 12:22 | NUR ---
rn note notified that bp 99/62 hr 75. and if ok to give amiodarone. said ok to give
--- NOTE | 2022-04-27 17:39 | NUR ---
rn note blood transfusion started at rate 60 ml/hr
--- NOTE | 2022-04-27 17:51 | NUR ---
rn note blood transfusion continues increased to 120 ml/hr. no adverse reactions noted. pt tolerating well. vital signs within normal limits
--- NOTE | 2022-04-27 18:24 | NUR ---
rn note blood transfusion continues increased to 150 ml/hr. no adverse reactions noted. vital signs stable
[2022-04-27 19:32] LABS: LYMPHOCYTES % (MANUAL) 7 % (16-48); MONOCYTES % (MANUAL) 5 % (0-11.0); NEUTROPHILS % (MANUAL) 88 (42-76)
--- NOTE | 2022-04-27 19:54 | NUR ---
television program director closing note pt is awake, alert and oriented. pt is on mechanical vent with ordered settings tolerating well. pt has del cid cathether yellow color draining to gravity. pt has right iv and left iv. iv intact patent, flushing well. no pain or discomfort noted at this time. pt on tele monitor currently sinus rhytm 81. all safety measures in place. bed locked at lowest position. side rails up x2. bed alarm on. pt currently ongoing blood transfusion. endorsed to night warehouse selector rn. no adverse reactions noted at this time.
--- NOTE | 2022-04-27 20:00 | NUR ---
MARIYA RN OPENING noteS Received pts in bed awake, alert and oriented. on 1 PRBC blood transfusion on progress no ase noted v/s stable afebrile . on mechanical vent with ordered settings tolerating well. with right wrist G#18 and left fa G #20 intact and patent .pt has del cid catheter yellow color draining to gravity. no c/o of pain or discomfort noted , no sob no distress noted pt on tele monitor currently sinus rhythm hr 89 . all safety measures in place. bed locked at lowest position. side rails up x2. bed alarm on. will continue to monitor.
--- NOTE | 2022-04-27 20:25 | NUR ---
MARIYA RN NOTES UNIT OF PRBC COMPLETED AT 2024 WITH NO ASE NOTED.
[2022-04-27] MEDS: ATORVASTATIN 40 MG TABLET PO SCH (21:25)
--- NOTE | 2022-04-27 22:00 | NUR ---
MARIYA RUELAS NOTES JEVITY FEEDING INCREASED TO 30CC/HR. PT TOLERATING WELL. NO RESIDUAL NOTED. Addendum: 04/28/22 at 0208 by VALENTINA RODRIGUEZ RN FEEDING IS GLUCERNA, NOT JEVITY.
--- NOTE | 2022-04-27 23:00 | NUR ---
MARIYA RN NOTES PTS NOTED EPISODE PULLING IV TUBINGS PULLING TRACH SPOKE TO DR GARNER WITH ORDER BILATERAL SOFT WRIST RESTRAINT , ATIVAN PRN ORDERED . WILL CONTINUE TO MONITOR PTS.
[2022-04-27] MEDS ORDERED: LORAZEPAM INJ 2 MG/ML VIAL IV PRN (23:30)
[2022-04-28] VITALS: BP 111/56
--- NOTE | 2022-04-28 | NUR ---
MARIYA RN NOTES GLUCERNA FEEDING INCREASED TO 40CC/HR. PT TOLERATING WELL. NO RESIDUAL NOTED.
--- NOTE | 2022-04-28 00:03 | NUR ---
MARIYA RN NOTES BLOOD SUGAR AT 0000HRS IS 120MG/DL NOINSULIN COVERAGE GIVEN PER SLIDING SCALR LANTUS 18 UNITS GIVEN ORDERED.
[2022-04-28] MEDS: DILTIAZEM HCL 30 MG TABLET GT SCH ×4 (00:17→17:43)
[2022-04-28] MEDS: ACETAMINOPHEN 325 MG TABLET PO PRN ×2 (00:18→07:35)
[2022-04-28] MEDS: ZOSYN IVPB 2.25 G in IV D5W 50ml IV SCH ×4 (01:27→19:49)
[2022-04-28] MEDS: ALBUTEROL FS 2.5 MG/3 ML VIAL.NEB NEB SCH ×4 (01:58→20:06)
[2022-04-28] MEDS: IPRATROPIUM NEB FS 0.5 MG/2.5 ML AMPUL.NEB NEB SCH ×4 (01:58→20:07)
[2022-04-28 04:00] VITALS: BP 99/43
[2022-04-28] MEDS: BLOOD SUGAR DIAGNOSTIC 1 EACH STRIP IN SCH ×5 (05:33→23:00)
--- NOTE | 2022-04-28 05:34 | NUR ---
MARIYA RN NOTES .BLOOD SUGAR FOR 0600 ID 112MG/DL NO COVERAGE GIVEN PER SLIDING SCALE CARDIZEM FOR6AM DOSE NOT GIVEN D/T BLOODPRESSURE 99/43
[2022-04-28] MEDS: INSULIN REGULAR, HUMAN 100 UNIT/ML 3 ML VIAL SQ PRN ×4 (05:37→23:00)
[2022-04-28 06:47] LABS: CALCIUM, SERUM 9.2 mg/dL (8.5-10.1); CREATININE 2.4 mg/dL (0.6-1.3); MAGNESIUM 2.6 mg/dL (1.8-2.4); PHOSPHORUS 4.4 mg/dL (2.5-4.9); POTASSIUM 3.7 mmol/L (3.5-5.1)
--- NOTE | 2022-04-28 07:02 | NUR ---
MARIYA RN NOTES PTS REMAIN IN BED REMAIN ON VENTILATOR ON SAME SETTING WELL TOLERATED BY PTS. CONTINUE ON BILATERAL WRIST RESTRAINT ORDERED WILL ENDORSE TO RN DAY SHIFT FOR CONTINUITY OF CARE.
--- NOTE | 2022-04-28 07:26 | NUR ---
MARIYA RN OPENING NOTE Received pts in bed sleeping , on mechanical vent with ordered settings tolerating well. with right wrist G#18 and left fa G #20 intact and patent .pt has del cid catheter yellow color draining to gravity. no c/o of signs of or discomfort noted , no sob no distress noted pt on tele monitor currently sinus rhythm hr 75 .. all safety measures in place. bed locked at lowest position. side rails up x2. bed alarm on. will continue to monitor.
[2022-04-28 08:00] VITALS: BP 113/67
[2022-04-28 08:05] LABS: BASOPHILS % (AUTO) 0.3 % (0.0-2.0); EOSINOPHILS % (AUTO) 0.3 % (0.0-6.0); HEMATOCRIT 22 % (39-51); HEMOGLOBIN 7.4 g/dL (13.5-17.5); LYMPHOCYTES # (AUTO) 0.9 K/uL (0.8-4.8); MEAN CORPUSCULAR HGB CONC 33 g/dl (31.0-36.0); MEAN CORPUSCULAR VOLUME 86 fL (80-96); MONOCYTES # (AUTO) 0.7 K/uL (0.1-1.30); MONOCYTES % (AUTO) 4.2 % (2.0-12.0); NEUTROPHILS # (AUTO) 14.1 K/uL (1.8-8.9); NEUTROPHILS % (AUTO) 89.2 % (43.0-81.0); PLATELET COUNT (AUTO) 304 K/uL (150-450); RED BLOOD CELL COUNT(AUTO) 2.59 MIL/uL (4.5-6.0); WHITE BLOOD COUNT (AUTO) 15.8 K/uL (4.3-11.0)
[2022-04-28] MEDS: FERROUS SULFATE (325 MG) 325 MG/TAB TABLET GT SCH (09:23)
[2022-04-28] MEDS: MULTIVITAMINS,THERAGRAN 1 UDTAB TABLET GT SCH (09:23)
[2022-04-28] MEDS: AMIODARONE HCL 200 MG TABLET GT SCH (09:23)
[2022-04-28] MEDS: CARVEDILOL 3.125 MG TABLET GT SCH ×2 (09:23→17:00)
[2022-04-28] MEDS: ASPIRIN 81 MG TAB.CHEW GT SCH (09:23)
[2022-04-28] MEDS: FAMOTIDINE/PF INJ 20 MG/2 ML VIAL IV SCH (09:23)
[2022-04-28] MEDS: ASCORBIC ACID 500 MG TABLET GT SCH (09:23)
[2022-04-28] MEDS: ZINC SULFATE 220 MG CAPSULE GT SCH (09:24)
[2022-04-28] MEDS: CHLORHEXIDINE GLUCONATE 15 ML UDC MM SCH ×2 (09:24→17:43)
[2022-04-28] MEDS: CLOPIDOGREL BISULFATE 75 MG TABLET GT SCH (09:24)
[2022-04-28 11:47] LABS: ABG BASE EXCESS 4.7 mmol/L; ABG PH 7.498 (7.350-7.450); ABG PO2 110.1 mmHg (75.0-100.0); COHb 0.3 % (0.5-1.5); MetHb 0.4 % (0.0-1.5); SITE, ABG Right Radial
[2022-04-28 12:00] VITALS: BP 99/54
[2022-04-28 12:17] LABS: CREATININE, URINE 79.5 MG/DL (30.0-125.0)
[2022-04-28 12:39] LABS: BILIRUBIN,URINE NEGATIVE (NEGATIVE); COLOR,URINE YELLOW (YELLOW); LEUKOCYTE ESTERASE ,URINE NEGATIVE (NEGATIVE); NITRITE, URINE NEGATIVE (NEGATIVE); PH,URINE 5.5 (5.0-8.0); PROTEIN,URINE 1+ mg/dl (NEGATIVE); UGLUCOSE NEGATIVE (NEGATIVE); UROBILINOGEN,URINE 0.2 EU/dL (0.2)
[2022-04-28 12:50] LABS: BACTERIA,URINE Rare /HPF (None Seen); SQUAMOUS EPITHELIAL CELL,UR Few /HPF (None Seen); WBC,URINE 0-2 /HPF (0-3)
--- NOTE | 2022-04-28 13:46 | NUR ---
rn note cadizem wasent administered due to patient had bp 99/54, hr 61
[2022-04-28] MEDS: SOD FERRIC GLUC 125 MG in IV NS 0.9% 100 ML IV SCH (14:14)
[2022-04-28 16:00] VITALS: BP 103/54
--- NOTE | 2022-04-28 17:33 | NUR ---
rn note coreg wasent administeres due to patient had BP 103/54 hr 72
[2022-04-28] MEDS: DAKINS QUARTER STRENGTH (0.125%) 480 ML BOTTLE TOP SCH (18:21)
[2022-04-28 20:00] VITALS: BP 114/59
--- NOTE | 2022-04-28 20:00 | NUR ---
GLOBAL SALES DIRECTOR OPENING noteS Received pts in bed awake, alert and oriented. v/s stable afebrile . on mechanical vent with ordered settings tolerating well. with right wrist G#18 and left fa G #20 intact and patent pts on bilateral soft wrist restraint to prevent pts from pulling invassive tubing all due meds given as ordered pts on gt feeding glucerna at 55cc/hr tolerating well ,all needs attended too call light within reach .pt has del cid catheter yellow color draining to gravity. no c/o of pain or discomfort noted , no sob no distress noted pt on tele monitor currently sinus rhythm hr76 . all safety measures in place. bed locked at lowest position. side rails up x2. bed alarm on. will continue to monitor.
[2022-04-28] MEDS: GLUCERNA 1.2 1,000 ML BOTTLE GT PRN (20:30)
[2022-04-28] MEDS: FAMOTIDINE (20 MG) 20 MG TABLET GT SCH (21:14)
[2022-04-28] MEDS: ATORVASTATIN 40 MG TABLET PO SCH (21:14)
[2022-04-28] MEDS: INSULIN GLARGINE, 100 UNIT/ML CARTRIDGE SQ SCH (22:56)
--- NOTE | 2022-04-28 23:02 | NUR ---
cable television technician notes Blood sugar at 12mn is 198 mg/dl lantus 18 units given as ordered ans 3 units ofregular insulin given per sliding scale
[2022-04-29] VITALS: BP 108/60
[2022-04-29] MEDS: DILTIAZEM HCL 30 MG TABLET GT SCH ×3 (00:10→13:15)
[2022-04-29] MEDS: IPRATROPIUM NEB FS 0.5 MG/2.5 ML AMPUL.NEB NEB SCH ×3 (01:04→13:56)
[2022-04-29] MEDS: ALBUTEROL FS 2.5 MG/3 ML VIAL.NEB NEB SCH ×3 (01:04→13:56)
[2022-04-29] MEDS: ZOSYN IVPB 2.25 G in IV D5W 50ml IV SCH ×3 (02:05→13:38)
[2022-04-29 04:00] VITALS: BP 108/56
--- NOTE | 2022-04-29 05:36 | NUR ---
telecommunications analyst notes Blood sugar at 12mn is 187 mg/dl 3 units o regular insulin given per sliding scale
--- NOTE | 2022-04-29 05:39 | NUR ---
COMMERCIAL INTERIOR DESIGNER NOTES PTS REMAIN IN BED REMAIN ON VENTILATOR ON SAME SETTING WELL TOLERATED BY PTS. CONTINUE ON BILATERAL WRIST RESTRAINT ORDERED FOR SERIAL DEBRIDEMENT SACRAL TODAY CONSENTED FOR PROCEDURE .WILL ENDORSE TO RN DAY SHIFT FOR CONTINUITY OF CARE.
[2022-04-29] MEDS: INSULIN REGULAR, HUMAN 100 UNIT/ML 3 ML VIAL SQ PRN ×2 (05:45→13:01)
[2022-04-29] MEDS ORDERED: SILVER NITRATE APPLICATOR 1 EA BOX TP SCH (06:00)
[2022-04-29] MEDS ORDERED: LIDOCAINE 1%-EPI 1:100,000 50 ML VIAL IJ ONE (06:00)
[2022-04-29] MEDS: BLOOD SUGAR DIAGNOSTIC 1 EACH STRIP IN SCH ×2 (06:16→12:37)
[2022-04-29 06:57] LABS: BASOPHILS % (AUTO) 0.4 % (0.0-2.0); EOSINOPHILS % (AUTO) 2.1 % (0.0-6.0); HEMATOCRIT 22 % (39-51); HEMOGLOBIN 7.3 g/dL (13.5-17.5); LYMPHOCYTES # (AUTO) 0.8 K/uL (0.8-4.8); LYMPHOCYTES % (AUTO) 7.7 % (20.0-44.0); MEAN CORPUSCULAR HGB CONC 33 g/dl (31.0-36.0); MEAN CORPUSCULAR VOLUME 86 fL (80-96); MONOCYTES # (AUTO) 0.4 K/uL (0.1-1.30); MONOCYTES % (AUTO) 3.7 % (2.0-12.0); NEUTROPHILS # (AUTO) 9.1 K/uL (1.8-8.9); NEUTROPHILS % (AUTO) 86.1 % (43.0-81.0); PLATELET COUNT (AUTO) 311 K/uL (150-450); RED BLOOD CELL COUNT(AUTO) 2.55 MIL/uL (4.5-6.0); WHITE BLOOD COUNT (AUTO) 10.6 K/uL (4.3-11.0)
[2022-04-29 07:10] LABS: CALCIUM, SERUM 9.1 mg/dL (8.5-10.1); CREATININE 2.3 mg/dL (0.6-1.3); POTASSIUM 4.1 mmol/L (3.5-5.1)
--- NOTE | 2022-04-29 07:50 | NUR ---
teletype mechanic opening note pt is awake, alert and oriented. pt is on mechanical vent with ordered settings tolerating well. pt able to nod to simple questions. pt has del cid cathether yellow color draining to gravity. pt has right iv and left iv. iv intact patent, flushing well. no pain or discomfort noted at this time. pt on tele monitor currently sinus rhytm 70.pt on soft bilateral wrist rrestraints. no skin or circulation issues noted at this time. all safety measures in place. bed locked at lowest position. side rails on up x2. bed alarm on.
[2022-04-29 08:00] VITALS: BP 113/67
--- NOTE | 2022-04-29 08:01 | NUR ---
rn note spoke with . diya for patient to have sips of water.
[2022-04-29] MEDS: ASPIRIN 81 MG TAB.CHEW GT SCH (08:41)
[2022-04-29] MEDS: AMIODARONE HCL 200 MG TABLET GT SCH (08:41)
[2022-04-29] MEDS: ASCORBIC ACID 500 MG TABLET GT SCH (08:42)
[2022-04-29] MEDS: FAMOTIDINE (20 MG) 20 MG TABLET GT SCH (08:42)
[2022-04-29] MEDS: MULTIVITAMINS,THERAGRAN 1 UDTAB TABLET GT SCH (08:42)
[2022-04-29] MEDS: CHLORHEXIDINE GLUCONATE 15 ML UDC MM SCH (08:42)
[2022-04-29] MEDS: CARVEDILOL 3.125 MG TABLET GT SCH (08:42)
[2022-04-29] MEDS: ZINC SULFATE 220 MG CAPSULE GT SCH (08:42)
[2022-04-29] MEDS: CLOPIDOGREL BISULFATE 75 MG TABLET GT SCH (09:00)
[2022-04-29] MEDS ORDERED: NEO/POLY-B/DEXAM OPHTH SUSP 5 ML BOTTLE LEFTEYE SCH (09:00)
[2022-04-29] MEDS ORDERED: INSU100V7 SQ (09:08)
[2022-04-29] MEDS ORDERED: LORA-259 PO (09:08)
[2022-04-29] MEDS ORDERED: MERO500V23 IV (09:08)
--- NOTE | 2022-04-29 09:45 | NUR ---
rn note notified that hgb on 04/27 6.4, 04/28 7.4 and current hgb 7.3. and if ok to hold plavix. said to hold.order noted and carried out
[2022-04-29] MEDS: DAKINS QUARTER STRENGTH (0.125%) 480 ML BOTTLE TOP SCH (09:48)
--- NOTE | 2022-04-29 11:32 | NUR ---
JESSENIA NOTE gave report to Luly RUELAS. Addendum: 04/29/22 at 1133 by SUSHANT MARTINS RN at [facility]) 30M
[2022-04-29 12:00] VITALS: BP 118/67
[2022-04-29 13:15] VITALS: BP 118/67
[2022-04-29] MEDS: SOD FERRIC GLUC 125 MG in IV NS 0.9% 100 ML IV SCH (13:26)
--- NOTE | 2022-04-29 13:30 | NUR ---
rn note pt daughter concern that hgb 7.3 and wanted discharge to held. notified dr. gupta. dr. gupta spoke with pt daughter and said okay to be discharge
--- NOTE | 2022-04-29 15:21 | NUR ---
marketing research intern note pt discharged. reviewed discharge paperwork with patients ashok. verbalized understanding. removed tele monitor box. kept IV due to patient receiving Merrem for 4 days. notified [facility] facility that transport team checked bp and it was lo 93/52 rechecked again 113/97. made Dcroman aware at [facility] and dr. gupta was notified. still okay to be discharge. pt stable condition. patient has no belongings.
== END 2022-04-29 17:04 | DRG 720 ==
LOC: ER 10:26 → ICU 13:51 → TELE-TD 04-27 11:09 → TELE1 04-28 18:09
PROVIDERS: ADMIT Nurse Practitioner Acute Care; ATTEND Internal Medicine
PROC: 5A1945Z Respiratory Ventilation, 24-96 Consecutive Hours (ICD-10-PCS; principal; 2022-04-26)
PROC: 30233N1 Transfusion of Nonautologous Red Blood Cells into Peripheral Vein, Percutaneous Approach (ICD-10-PCS; 2022-04-27)
DX: A41.50 Gram-negative sepsis, unspecified (principal); N17.0 Acute kidney failure with tubular necrosis; J96.21 Acute and chronic respiratory failure with hypoxia; G93.41 Metabolic encephalopathy; I50.23 Acute on chronic systolic (congestive) heart failure; L89.154 Pressure ulcer of sacral region, stage 4; E44.0 Moderate protein-calorie malnutrition; D63.8 Anemia in other chronic diseases classified elsewhere; E87.1 Hypo-osmolality and hyponatremia; I21.A1 Myocardial infarction type 2; R53.2 Functional quadriplegia; E88.09 Other disorders of plasma-protein metabolism, not elsewhere classified; E11.22 Type 2 diabetes mellitus with diabetic chronic kidney disease; D50.9 Iron deficiency anemia, unspecified; D68.59 Other primary thrombophilia; E87.5 Hyperkalemia; Z20.822 Contact with and (suspected) exposure to COVID-19; Z93.1 Gastrostomy status; Z99.11 Dependence on respirator [ventilator] status; Z93.0 Tracheostomy status; R13.10 Dysphagia, unspecified; I25.10 Atherosclerotic heart disease of native coronary artery without angina pectoris; K21.9 Gastro-esophageal reflux disease without esophagitis; I13.0 Hypertensive heart and chronic kidney disease with heart failure and stage 1 through stage 4 chronic kidney disease, or unspecified chronic kidney disease; N18.9 Chronic kidney disease, unspecified; Z79.4 Long term (current) use of insulin; Z79.51 Long term (current) use of inhaled steroids; Z79.02 Long term (current) use of antithrombotics/antiplatelets; Z79.82 Long term (current) use of aspirin; Z79.84 Long term (current) use of oral hypoglycemic drugs; Z79.899 Other long term (current) drug therapy; J90 Pleural effusion, not elsewhere classified; Z95.1 Presence of aortocoronary bypass graft; N39.0 Urinary tract infection, site not specified; B96.89 Other specified bacterial agents as the cause of diseases classified elsewhere; K76.1 Chronic passive congestion of liver; R74.01 Elevation of levels of liver transaminase levels; Z98.890 Other specified postprocedural states; F41.9 Anxiety disorder, unspecified; E11.65 Type 2 diabetes mellitus with hyperglycemia
CPT/HCPCS: 31720; 36415; 36600; 70450-TC; 71045-TC; 80048-TC; 80061-TC; 80076-TC; 81001; 82140-TC; 82570-TC; 82728-TC; 82803-TC; 82962-TC; 83540-TC; 83605-TC; 83735-TC; 83880; 84100-TC; 84300-TC; 84484-TC; 85025-TC; 85730-TC; 86704; 86705; 86706; 86803; 86850-TC; 87040-TC; 87081-TC; 87086-TC; 87340; 93307-TC; 94002-TC; 94003-TC; 94799-TC; A6403; C9803; G0378; J0610; J1650; J1815; J1940; J2405; J2543; J2916; J3370; J3490; J7030; J7050; J7060; P9016

== ENCOUNTER 2022-05-10 23:02 | Inpatient (IN) | payer OTHER ==
[~2022-05-10] VITALS: Ht 170.2 cm; Wt 49.9 kg
[~2022-05-10 23:02] MED LIST changes: +ACET-2605 GT; +ACET-868 GT; +ASCO-352 GT; -BENA20TA9 GT; -CARV3.122 GT; -CLOP75TA15 GT; -DILT240T12 GT; +DILT60TA3 GT; +FURO-144 GT; +HYDR-4303 GT; +INSU100V3 SQ; +INSU100V7 SQ; -KRIL1CAP GT; +LORA-259 PO; +MELA5TAB GT; +MERO500V23 IV; -METF-442 GT; +MULT-447 GT; +NICO-676 TD; +NITR0.4T48 SL; -PANT40TA2 GT; -QUET25TA GT; +ZINC220C6 GT
[2022-05-10] MEDS ORDERED: ONDANSETRON HCL/PF 4 MG/2 ML VIAL ONE (23:12)
--- NOTE | 2022-05-10 23:13 | NUR ---
[id number] FROM [facility] FOR NAUSEA. PT A/OX2; NONVERBAL. TRACH SATTING 100% ON FIO2 35%. GTUBE INTACT. CONNECTED PT TO POX AND MONITOR.
--- NOTE | 2022-05-10 23:20 | NUR ---
RAC #20G S/L BLOOD COLLECTED AND SENT TO LAB
--- NOTE | 2022-05-10 23:21 | NUR ---
COVID ANTIGEN SWAB COLLECTED AND SENT TO LAB
[2022-05-10] MEDS ORDERED: IV NS 0.9% 500 ML BAG IV ONE (23:30)
[2022-05-10] MEDS ORDERED: ONDANSETRON HCL/PF 4 MG/2 ML VIAL IV ONE (23:30)
[2022-05-10] MEDS ORDERED: ONDANSETRON HCL/PF 4 MG/2 ML VIAL IM ONE (23:30)
--- NOTE | 2022-05-10 23:31 | NUR ---
CANE WEIGHER HELPER AT PT'S BEDSIDE
[2022-05-10 23:45] LABS: BASOPHILS # (AUTO) 0.1 K/uL (0.0-0.2); BASOPHILS % (AUTO) 0.5 % (0.0-2.0); EOSINOPHILS % (AUTO) 1.2 % (0.0-6.0); HEMATOCRIT 33 % (39-51); HEMOGLOBIN 10.5 g/dL (13.5-17.5); LYMPHOCYTES # (AUTO) 0.7 K/uL (0.8-4.8); LYMPHOCYTES % (AUTO) 6.4 % (20.0-44.0); MEAN CORPUSCULAR HGB CONC 32 g/dl (31.0-36.0); MEAN CORPUSCULAR VOLUME 86 fL (80-96); MONOCYTES # (AUTO) 0.4 K/uL (0.1-1.30); MONOCYTES % (AUTO) 3.1 % (2.0-12.0); NEUTROPHILS # (AUTO) 10.2 K/uL (1.8-8.9); NEUTROPHILS % (AUTO) 88.8 % (43.0-81.0); PLATELET COUNT (AUTO) 381 K/uL (150-450); RED BLOOD CELL COUNT(AUTO) 3.82 MIL/uL (4.5-6.0); WHITE BLOOD COUNT (AUTO) 11.5 K/uL (4.3-11.0)
[2022-05-10 23:59] LABS: CALCIUM, SERUM 10.6 mg/dL (8.5-10.1); CARBON DIOXIDE 30 mmol/L (21-32); CHLORIDE 93 mmol/L (98-107); CREATININE 1.8 mg/dL (0.6-1.3); GLUCOSE 247 mg/dL (74-106); POTASSIUM 4.8 mmol/L (3.5-5.1); SODIUM SERUM 132 mmol/L (136-145); UREA NITROGEN, BLOOD 62 mg/dL (7-18)
[2022-05-11 00:13] LABS: ALANINE AMINOTRANSFERASE 47 U/L (12-78); ALBUMIN 3.2 g/dL (3.4-5.0); ALKALINE PHOSPHATASE 131 U/L (46-116); ASPARTATE AMINOTRANSFERASE 35 U/L (15-37); BILIRUBIN,DIRECT 0.3 mg/dL (0.0-0.2); BILIRUBIN,TOTAL 0.5 mg/dL (0.2-1.0)
--- NOTE | 2022-05-11 01:25 | NUR ---
URINE COLLECTED AND SENT TO LAB
[2022-05-11 01:58] LABS: BILIRUBIN,URINE NEGATIVE (NEGATIVE); COLOR,URINE YELLOW (YELLOW); LEUKOCYTE ESTERASE ,URINE 1+ (NEGATIVE); NITRITE, URINE NEGATIVE (NEGATIVE); PH,URINE 8.5 (5.0-8.0); PROTEIN,URINE 2+ mg/dl (NEGATIVE); UGLUCOSE NEGATIVE (NEGATIVE); UROBILINOGEN,URINE 0.2 EU/dL (0.2)
[2022-05-11] MEDS ORDERED: MAG HYDROX/AL HYDROX/SIMETH 30 ML UDC PO PRN (02:00)
[2022-05-11] MEDS ORDERED: Z GUARD REMEDY 4 OZ OINT TP PRN (02:00)
[2022-05-11] MEDS ORDERED: GLUCERNA 1.5 1,000 ML BOTTLE NG PRN ×3 (02:00→12:00)
[2022-05-11] MEDS ORDERED: DEXTROSE 50%-WATER 50 ML DISP.SYRIN IV PRN (02:00)
[2022-05-11] MEDS ORDERED: MAGNESIUM HYDROXIDE 30 ML UDC PO PRN (02:00)
[2022-05-11] MEDS ORDERED: ONDANSETRON HCL/PF 4 MG/2 ML VIAL IVP PRN (02:00)
[2022-05-11] MEDS ORDERED: ALBUTEROL FS 2.5 MG/3 ML VIAL.NEB NEB PRN (02:00)
[2022-05-11] MEDS ORDERED: ACETAMINOPHEN 325 MG TABLET PO PRN (02:00)
[2022-05-11] MEDS ORDERED: IPRATROPIUM NEB FS 0.5 MG/2.5 ML AMPUL.NEB NEB PRN (02:00)
[2022-05-11] MEDS ORDERED: MORPHINE SULFATE INJ 2 MG/ML DISP.SYRIN IV PRN (02:00)
[2022-05-11 02:07] LABS: BACTERIA,URINE Moderate /HPF (None Seen); SQUAMOUS EPITHELIAL CELL,UR Few /HPF (None Seen); TRIPLE PHOSPHATE CRYSTAL,UR Many /HPF (None Seen)
[2022-05-11] MEDS ORDERED: MEROPENEM 500 MG in IV NS 0.9% 50 ML IV ONE (02:30)
[2022-05-11] MEDS ORDERED: VANCOMYCIN 1 GM in IV D5W 250ml IV ONE (03:00)
[2022-05-11] MEDS ORDERED: MEROPENEM 500 MG VIAL IV ONE (03:58)
[2022-05-11] MEDS ORDERED: VANCOMYCIN 1 GM VIAL ONE (03:58)
--- NOTE | 2022-05-11 04:14 | NUR ---
CLEANED AND REPONSITED PT. F/C DRAINING URINE WELL. GTUBE INTACT. VSS. Addendum: 05/11/22 at 0453 by NICOLE CLEANED AND REPOSITIONED PT. F/C DRAINING URINE WELL. GTUBE INTACT. VSS.
--- NOTE | 2022-05-11 05:15 | NUR ---
REPORT GIVEN TO ANNA Faith RN FOR ALEXIS
--- NOTE | 2022-05-11 05:45 | NUR ---
HOT WIRE GLASS TUBE CUTTER NOTE RECEIVED REPORT FROM ER NURSE MARINA. PT IS ADMITTED TO ROOM 324-1. PT IS A/O X2/3, NON VERBAL. VANCO IVPB ADMINISTERED TO PT. PT CLEANED, AND LEFT COMFORTABLE. WILL ENDORSE PT TO AM SHIFT NURSE FOR ADMISSION.
--- NOTE | 2022-05-11 05:51 | NUR ---
PT TRANSFERRED TO 3W VIA ACLS PROTOCOL WITH RT. ENDORSED VANCOMYCIN FOR ADMINISTRATION TO DESHAUN RUELAS. PT TOLERATED TRANSFER WELL. VSS.
--- NOTE | 2022-05-11 07:50 | NUR ---
CAT OPERATOR OPENING NOTES PATIENT AWAKE IN BED, A/O X 1-2, MALAYSIAN SPEAKING, ON MECHANICAL VENT. BREATHING EVEN AND UNLABORED. NO DISTRESS OR SHORTNESS OF BREATH NOTED. IV ACCESS ON RAC 20G, PATENT AND INTACT. G-TUBE NOTED, DRY AND INTACT. ON PATIÑO CATHETER, DRAINING YELLOW URINE OUTPUT. SAFETY MEASURES GIVEN WITH BED ON LOWEST AND LOCKED POSITION. CALL LIGHT AND TRAY WITHIN REACH. WILL CONTINUE WITH THE PLAN OF CARE.
[2022-05-11 08:00] VITALS: BP 120/61
[2022-05-11] MEDS ORDERED: VANCOMYCIN 500 MG in IV D5W 100 ML IV ONE (08:00)
[2022-05-11] MEDS: BLOOD SUGAR DIAGNOSTIC 1 EACH STRIP IN SCH ×3 (08:30→17:52)
[2022-05-11] MEDS ORDERED: PANTOPRAZOLE 40 MG VIAL IV SCH (09:00)
[2022-05-11] MEDS ORDERED: EPOE1000 IJ (09:09)
[2022-05-11] MEDS ORDERED: DOCU-141 GT (09:09)
[2022-05-11] MEDS ORDERED: MEROPENEM 500 MG in IV NS 0.9% 100 ML IV SCH (11:00)
[2022-05-11] MEDS ORDERED: GLUCERNA 1.5 1,000 ML BOTTLE GT PRN ×3 (11:30→14:30)
[2022-05-11 12:02] VITALS: BP 124/57
[2022-05-11] MEDS: MEROPENEM 1 G in IV NS 0.9% 100 ML IV SCH ×2 (12:17→23:35)
[2022-05-11] MEDS ORDERED: MEROPENEM 500 MG in IV NS 0.9% 50 ML IV SCH (13:00)
[2022-05-11] MEDS: INSULIN REGULAR, HUMAN 100 UNIT/ML 3 ML VIAL SQ PRN ×2 (13:16→17:54)
[2022-05-11 16:00] VITALS: BP 129/64
[2022-05-11] MEDS ORDERED: GLUCERNA 1.5 1,000 ML BOTTLE GT SCH (17:30)
[2022-05-11] MEDS ORDERED: LORAZEPAM 1 MG TABLET PO PRN (17:30)
[2022-05-11] MEDS ORDERED: NITROGLYCERIN 0.4 MG/TAB BOTTLE SL PRN (17:30)
[2022-05-11] MEDS ORDERED: Medication Not On Formulary EA (Melatonin 10 MG) GT PRN (17:30)
[2022-05-11] MEDS ORDERED: Medication Not On Formulary EA (Ipratropium/Albuterol Sulfate (Combivent Respimat 20-100 IH SCH ×2 (18:00)
[2022-05-11] MEDS ORDERED: MAGNESIUM HYDROXIDE 30 ML UDC GT PRN (18:50)
[2022-05-11] MEDS ORDERED: LORAZEPAM 0.5 MG TABLET PO PRN (19:00)
--- NOTE | 2022-05-11 19:35 | NUR ---
BIOLOGICAL SCIENCES INSTRUCTOR CLOSING NOTES PATIENT AWAKE IN BED, A/O X 1-2, CROATIAN SPEAKING, ON MECHANICAL VENT. BREATHING EVEN AND UNLABORED. NO DISTRESS OR SHORTNESS OF BREATH NOTED. ON TELE MONITOR READING SR 75. IV ACCESS ON RAC 20G, PATENT AND INTACT. WITH ONGOING G-TUBE FEEDING, TOLERATING WELL. ON PATIÑO CATHETER, DRAINING YELLOW URINE OUTPUT. ALL MEDS GIVEN. KEPT COMFORTABLE. SAFETY MEASURES GIVEN WITH BED ON LOWEST AND LOCKED POSITION. CALL LIGHT AND TRAY WITHIN REACH. ENDORSED TO NIGHT NURSE FOR ALEXIS.
--- NOTE | 2022-05-11 19:51 | NUR ---
PILE DRIVER OPENING NOTES: RECEIVED PATIENT AWAKE IN BED, BED IN LOW POSITION CALL LIGHTS WITHIN REACH, NO COMPLAIN OF PAIN AND DISCOMFORT AT THIS TIME, ON MECHANICAL VENT SATURATING WELL, PATIENT IS A/OX 2-3 ABLE TO MAKE NEEDS KNOWN, ON G TUBE FEEDING OF GLUCERNA 255ML/HR X 20 HOURS INFUSING WELL, ON PATIÑO CATHETER-50CC URINE OUTPUT, ON TELE MONITOR- SR-77, PATIENT KEPT CLEAN AND DRY ALL NEEDS MET WILL CONTINUE TO MONITOR.
[2022-05-11 20:00] VITALS: BP 126/53
[2022-05-11] MEDS: ALBUTEROL FS 2.5 MG/3 ML VIAL.NEB NEB SCH (20:25)
[2022-05-11] MEDS: IPRATROPIUM NEB FS 0.5 MG/2.5 ML AMPUL.NEB NEB SCH (20:25)
[2022-05-11] MEDS: HEPARIN SODIUM, PORCINE 5000 UNITS/1 ML VIAL SQ SCH (21:00)
[2022-05-11] MEDS: DAKINS QUARTER STRENGTH (0.125%) 480 ML BOTTLE TOP SCH (22:00)
[2022-05-11] MEDS: ATORVASTATIN 40 MG TABLET GT SCH (22:03)
[2022-05-11] MEDS: INSULIN GLARGINE, 100 UNIT/ML CARTRIDGE SQ SCH (22:07)
--- NOTE | 2022-05-11 22:27 | NUR ---
RN NOTES: HEPARIN WAS NOT GIVEN PATIENT HAS A SCHEDULE SACRAL DEBRIDEMENT TOMORROW
--- NOTE | 2022-05-11 22:28 | NUR ---
RN NOTES: PAULA HAMMONDS NEW ORDER NOT YET AVAILABLE
[2022-05-12] VITALS: BP 124/56
[2022-05-12] MEDS: INSULIN REGULAR, HUMAN 100 UNIT/ML 3 ML VIAL SQ PRN ×4 (00:53→23:26)
[2022-05-12] MEDS: BLOOD SUGAR DIAGNOSTIC 1 EACH STRIP IN SCH ×5 (00:54→23:57)
[2022-05-12] MEDS: ALBUTEROL FS 2.5 MG/3 ML VIAL.NEB NEB SCH ×4 (01:35→20:29)
[2022-05-12] MEDS: IPRATROPIUM NEB FS 0.5 MG/2.5 ML AMPUL.NEB NEB SCH ×4 (01:35→20:29)
[2022-05-12 04:00] VITALS: BP 135/61
[2022-05-12 05:44] LABS: BASOPHILS # (AUTO) 0.1 K/uL (0.0-0.2); EOSINOPHILS % (AUTO) 3.6 % (0.0-6.0); HEMATOCRIT 27 % (39-51); HEMOGLOBIN 8.8 g/dL (13.5-17.5); LYMPHOCYTES # (AUTO) 1.4 K/uL (0.8-4.8); LYMPHOCYTES % (AUTO) 18.9 % (20.0-44.0); MEAN CORPUSCULAR HGB CONC 33 g/dl (31.0-36.0); MEAN CORPUSCULAR VOLUME 87 fL (80-96); MONOCYTES # (AUTO) 0.5 K/uL (0.1-1.30); MONOCYTES % (AUTO) 7.2 % (2.0-12.0); NEUTROPHILS # (AUTO) 5.1 K/uL (1.8-8.9); NEUTROPHILS % (AUTO) 69.3 % (43.0-81.0); PLATELET COUNT (AUTO) 331 K/uL (150-450); RED BLOOD CELL COUNT(AUTO) 3.07 MIL/uL (4.5-6.0); WHITE BLOOD COUNT (AUTO) 7.4 K/uL (4.3-11.0)
[2022-05-12 06:00] LABS: CALCIUM, SERUM 9.9 mg/dL (8.5-10.1); CREATININE 1.7 mg/dL (0.6-1.3); MAGNESIUM 2.4 mg/dL (1.8-2.4); POTASSIUM 4.3 mmol/L (3.5-5.1)
[2022-05-12] MEDS ORDERED: SILVER NITRATE APPLICATOR 1 EA BOX TP SCH (06:00)
[2022-05-12] MEDS ORDERED: LIDOCAINE 1%-EPI 1:100,000 20 ML VIAL TP ONE (06:00)
--- NOTE | 2022-05-12 06:05 | NUR ---
RN NOTES: BLOOD SUGAR-130/ NO INSULIN GIVEN PER SLIDING SCALE
--- NOTE | 2022-05-12 06:28 | NUR ---
ASSISTANT CLINICAL NURSE MANAGER CLOSING NOTES: RECEIVED PATIENT AWAKE IN BED, BE DIN LOW POSITION, CALL LIGHTS WITHIN REACH, NO COMPLAIN OF PAIN AND DISCOMFORT AT THIS TIME, ON MECHANICAL VENT SATURATING WELL, PATIENT IS A/OX2-3 GUYANESE SPEAKING ABLE TO EXPRESS NEEDS ON GTUBE FEEDING HOB TO REMAIN UPRIGHT, ON TELE MONITOR- SR-77 NO SYMPTOMS WAS OBSERVED, PATIENT KEPT CLEAN AND DRY ALL NEEDS MET ENDORSE TO INCOMING SHIFT.
--- NOTE | 2022-05-12 07:40 | NUR ---
ACCOUNT ENGINEER OPENING NOTES: PATIENT AWAKE IN BED, ON MECHANICAL VENT SATURATING WELL, BREATHING EVEN AND UNLABORED. NO DISTRESS OR SHORTNESS OF BREATH NOTED. PATIENT IS A/OX 2-3 ABLE TO MAKE NEEDS KNOWN, ON G TUBE FEEDING OF GLUCERNA 55ML/HR X 20 HOURS INFUSING WELL, ON PATIÑO CATHETER DRAINING WELL. ON TELE MONITOR- SR-78,BED IN LOW POSITION CALL LIGHTS WITHIN REACH, NO COMPLAIN OF PAIN AND DISCOMFORT AT THIS TIME, WILL CONTINUE TO MONITOR.
[2022-05-12] MEDS: ACETYLCYSTEINE 10% SOLN 400 MG/4 ML VIAL NEB SCH ×3 (08:00→23:26)
[2022-05-12] MEDS: CHLORHEXIDINE GLUCONATE 15 ML UDC MM SCH ×2 (08:33→16:40)
[2022-05-12] MEDS: FUROSEMIDE 40 MG TABLET GT SCH ×2 (08:33→16:40)
[2022-05-12] MEDS: ASCORBIC ACID 500 MG TABLET GT SCH (08:33)
[2022-05-12] MEDS: DOCUSATE SODIUM LIQ 100 MG/10 ML UDC GT SCH (08:33)
[2022-05-12] MEDS: DILTIAZEM HCL 30 MG TABLET GT SCH (08:33)
[2022-05-12] MEDS: ASPIRIN 81 MG TAB.CHEW GT SCH (08:34)
[2022-05-12] MEDS: NICOTINE PATCH (21MG) 21 MG PATCH.TD24 TD SCH (08:34)
[2022-05-12] MEDS: MULTIVIT W/MINERALS 1 TAB TABLET GT SCH (08:34)
[2022-05-12] MEDS: FERROUS SULFATE (325 MG) 325 MG/TAB TABLET GT SCH (08:34)
[2022-05-12] MEDS: AMIODARONE HCL 200 MG TABLET GT SCH (08:35)
[2022-05-12] MEDS: HEPARIN SODIUM, PORCINE 5000 UNITS/1 ML VIAL SQ SCH ×2 (08:38→21:00)
--- NOTE | 2022-05-12 08:39 | NUR ---
RN NOTES HEPARIN WAS HELD, SCHEDULED FOR SKIN DEBRIDEMENT TODAY. WILL MONITOR.
[2022-05-12] MEDS: PANTOPRAZOLE 40 MG/PACK PACK GT SCH (08:42)
[2022-05-12] MEDS: DAKINS QUARTER STRENGTH (0.125%) 480 ML BOTTLE TOP SCH (09:00)
[2022-05-12] MEDS: VANCOMYCIN 1 GM in IV D5W 250 ML IV SCH (09:03)
--- NOTE | 2022-05-12 10:18 | NUR ---
RN NOTES: PAULA HAMMONDS NEW ORDER NOT YET AVAILABLE
[2022-05-12] MEDS: MEROPENEM 1 G in IV NS 0.9% 100 ML IV SCH ×2 (10:37→23:57)
[2022-05-12] MEDS: SCOPOLAMINE PATCH 1 MG/72HR TD SCH (14:19)
--- NOTE | 2022-05-12 18:00 | NUR ---
RN NOTES PATIENT COMPLAINED OF HAVING DISCOMFORT IN BREATHING, NOTIFIED RT RIGHT AWAY, SUCTION SECRETION BY RT, NO FURTHER COMPLAINS THEREAFTER.
--- NOTE | 2022-05-12 18:32 | NUR ---
ASSOCIATE PROFESSOR OF MATHEMATICS CLOSING NOTES PATIENT AWAKE IN BED, ON MECHANICAL VENT SATURATING WELL, BREATHING EVEN AND UNLABORED. NO DISTRESS OR SHORTNESS OF BREATH NOTED. PATIENT IS A/OX 2-3 ABLE TO MAKE NEEDS KNOWN, ON G TUBE FEEDING OF GLUCERNA 55ML/HR INFUSING WELL, ON PATIÑO CATHETER DRAINING WELL WITH 800ML COLOR YELLOW URINE OUTPUT. ON TELE MONITOR-SR 77, ALL DUE MEDS GIVEN. BED IN LOW POSITION CALL LIGHTS WITHIN REACH, NO COMPLAIN OF PAIN AND DISCOMFORT AT THIS TIME, ENDORSED TO NEXT SHIFT NURSE FOR CONTINUING PATIENT CARE.
--- NOTE | 2022-05-12 19:40 | NUR ---
SALES AGENT OPENING NOTES RECEIVED PATIENT AWAKE IN BED WATCHING TV. A/O X 2-3. ON MECHANICAL VENT SATURATING WELL. BREATHING EVEN AND UNLABORED. NO DISTRESS OR SHORTNESS OF BREATH NOTED. ON G TUBE FEEDING OF GLUCERNA 55ML/HR, TOLERATING WELL. ON PATIÑO CATHETER, DRAINING WELL WITH COLOR YELLOW URINE OUTPUT. ON TELE MONITOR-SR 78. NO C/O OF PAIN AND DISCOMFORT AT THIS TIME. SAFETY MEASURES MAINTAINED WITH BED ON LOWEST AND LOCKED POSITION. CALL LIGHT AND TRAY WITHIN EASY REACH. SIDE RAILS UP X 2. WILL CONTINUE WITH THE PLAN OF CARE. Addendum: 05/13/22 at 0736 by AGUSTÍN IVEY RN PATIENT ON TRACHEOSTOMY.
[2022-05-12 19:46] LABS: CREATININE, URINE < 13.0 MG/DL (30.0-125.0); URINE SODIUM, RANDOM 123 mmol/l (40-220)
[2022-05-12 19:50] LABS: BILIRUBIN,URINE NEGATIVE (NEGATIVE); COLOR,URINE YELLOW (YELLOW); LEUKOCYTE ESTERASE ,URINE NEGATIVE (NEGATIVE); NITRITE, URINE NEGATIVE (NEGATIVE); PH,URINE 7.5 (5.0-8.0); PROTEIN,URINE TRACE mg/dl (NEGATIVE); UGLUCOSE NEGATIVE (NEGATIVE); UROBILINOGEN,URINE 0.2 EU/dL (0.2)
[2022-05-12 20:00] VITALS: BP 131/70
[2022-05-12 20:22] LABS: BACTERIA,URINE None seen /HPF (None Seen); RBC,URINE 0-2 /HPF (0-2); SQUAMOUS EPITHELIAL CELL,UR Rare /HPF (None Seen); WBC,URINE NONE SEEN /HPF (0-3)
--- NOTE | 2022-05-12 21:07 | NUR ---
RN NOTES HEPARIN WAS HELD, SKIN DEBRIDEMENT DONE EARLIER TODAY. WILL MONITOR PATIENT.
[2022-05-12] MEDS: MUPIROCIN OINT 2% 22 GM TUBE NS SCH (21:13)
[2022-05-12] MEDS: TRAZODONE 50 MG TABLET PO SCH (21:50)
[2022-05-12] MEDS: ATORVASTATIN 40 MG TABLET GT SCH (21:50)
[2022-05-12] MEDS: INSULIN GLARGINE, 100 UNIT/ML CARTRIDGE SQ SCH (23:15)
[2022-05-13] MEDS: IPRATROPIUM NEB FS 0.5 MG/2.5 ML AMPUL.NEB NEB SCH ×4 (02:28→20:04)
[2022-05-13] MEDS: ALBUTEROL FS 2.5 MG/3 ML VIAL.NEB NEB SCH ×4 (02:28→20:04)
[2022-05-13] MEDS: BLOOD SUGAR DIAGNOSTIC 1 EACH STRIP IN SCH ×3 (06:00→17:31)
[2022-05-13 06:17] LABS: BASOPHILS # (AUTO) 0.1 K/uL (0.0-0.2); BASOPHILS % (AUTO) 0.8 % (0.0-2.0); EOSINOPHILS % (AUTO) 5.6 % (0.0-6.0); HEMATOCRIT 25 % (39-51); HEMOGLOBIN 8.5 g/dL (13.5-17.5); LYMPHOCYTES # (AUTO) 1.2 K/uL (0.8-4.8); LYMPHOCYTES % (AUTO) 18.2 % (20.0-44.0); MEAN CORPUSCULAR HGB CONC 33 g/dl (31.0-36.0); MEAN CORPUSCULAR VOLUME 86 fL (80-96); MONOCYTES # (AUTO) 0.5 K/uL (0.1-1.30); NEUTROPHILS # (AUTO) 4.4 K/uL (1.8-8.9); NEUTROPHILS % (AUTO) 67.4 % (43.0-81.0); PLATELET COUNT (AUTO) 356 K/uL (150-450); RED BLOOD CELL COUNT(AUTO) 2.96 MIL/uL (4.5-6.0); WHITE BLOOD COUNT (AUTO) 6.6 K/uL (4.3-11.0)
[2022-05-13 06:39] LABS: CALCIUM, SERUM 9.9 mg/dL (8.5-10.1); CREATININE 1.5 mg/dL (0.6-1.3); POTASSIUM 3.8 mmol/L (3.5-5.1)
--- NOTE | 2022-05-13 07:11 | NUR ---
STEEL POST INSTALLER OPENING NOTES RECEIVED PATIENT SLEEPING IN BED, TRACH IN PLACE. NO S/S OF RESPIRATORY DISTRESS. ALERT TO VERBAL AND TACTILE STIMULI. A/Ox 2, UNDERSTANDS SOUTH SUDANESE AND SOME GUYANESE. IV ACCESS R FA #20G S/L. PATIENT ON TELE MONITORING SHOWING SINUS RHYTHM HR 69. NO S/S OF CARDIAC DISTRESS. PATIENT ON G-TUBE FEEDING, GLUCERNA @ 55 ML/HR, TOLERATING WELL. HAS FC DRAINING YELLOW URINE. SKIN ISSUES: SACRAL WOUND, L BACK SKIN TEAR, MULTIPLE SCABS. DRESSINGS INTACT. SAFETY MEASURES IN PLACE: BED LOCKED AND IN LOWEST POSITION, HOB ELEVATED, SIDE RAILS UPx2, CALL LIGHT WITHIN REACH. WILL CONTINUE TO MONITOR.
--- NOTE | 2022-05-13 07:37 | NUR ---
FOOD AND BEVERAGE DIRECTOR CLOSING NOTES PATIENT SLEEPING IN BED, EASILY BE AWAKEN BY VERBAL AND TACTILE STIMULI. A/O X 2-3. HOOKED TO VENTILATOR AND TOLERATING CURRENT SETTINGS. PATIENT WITH TRACHEOSTOMY TUBE IN PLACE. ON G TUBE FEEDING OF GLUCERNA 55ML/HR, TOLERATING WELL. ON PATIÑO CATHETER, DRAINED 950ML WITH COLOR YELLOW URINE OUTPUT. ON TELE MONITOR-SR 78. MEDICATIONS GIVEN SCHEDULED. NO C/O OF PAIN AND DISCOMFORT AT THIS TIME. SAFETY MEASURES MAINTAINED WITH BED ON LOWEST AND LOCKED POSITION. CALL LIGHT AND TRAY WITHIN EASY REACH. SIDE RAILS UP X 2. WILL ENDORSE TO THE NEXT SHIFT FOR ALEXIS.
[2022-05-13] MEDS: ACETYLCYSTEINE 10% SOLN 400 MG/4 ML VIAL NEB SCH ×3 (07:50→23:49)
[2022-05-13 08:00] VITALS: BP 128/64
[2022-05-13] MEDS: DOCUSATE SODIUM LIQ 100 MG/10 ML UDC GT SCH (08:51)
[2022-05-13] MEDS: ASPIRIN 81 MG TAB.CHEW GT SCH (08:52)
[2022-05-13] MEDS: MULTIVIT W/MINERALS 1 TAB TABLET GT SCH (08:52)
[2022-05-13] MEDS: FUROSEMIDE 40 MG TABLET GT SCH ×2 (08:53→17:30)
[2022-05-13] MEDS: FERROUS SULFATE (325 MG) 325 MG/TAB TABLET GT SCH (08:53)
[2022-05-13] MEDS: DILTIAZEM HCL 30 MG TABLET GT SCH (08:53)
[2022-05-13] MEDS: PANTOPRAZOLE 40 MG/PACK PACK GT SCH (08:53)
[2022-05-13] MEDS: AMIODARONE HCL 200 MG TABLET GT SCH (08:53)
[2022-05-13] MEDS: CHLORHEXIDINE GLUCONATE 15 ML UDC MM SCH ×2 (08:54→17:30)
[2022-05-13] MEDS: NICOTINE PATCH (21MG) 21 MG PATCH.TD24 TD SCH (08:54)
[2022-05-13] MEDS: ASCORBIC ACID 500 MG TABLET GT SCH (08:55)
[2022-05-13] MEDS: DAKINS QUARTER STRENGTH (0.125%) 480 ML BOTTLE TOP SCH (09:00)
[2022-05-13] MEDS: VANCOMYCIN 1 GM in IV D5W 250 ML IV SCH (09:01)
[2022-05-13] MEDS: MUPIROCIN OINT 2% 22 GM TUBE NS SCH ×2 (09:19→22:28)
[2022-05-13] MEDS: HEPARIN SODIUM, PORCINE 5000 UNITS/1 ML VIAL SQ SCH ×2 (09:36→22:28)
[2022-05-13] MEDS: GLUCERNA 1.2 1,000 ML BOTTLE GT PRN (09:53)
[2022-05-13] MEDS: MEROPENEM 1 G in IV NS 0.9% 100 ML IV SCH ×2 (10:58→23:20)
--- NOTE | 2022-05-13 11:29 | NUR ---
RN NOTES DAKINS SOLUTION, NOT AVAILABLE FROM PHARMACY, WILL BRING UP TO UNIT. WILL DO COMPLETE WOUND CARE WHEN SOLUTION BECOMES AVAILABLE.
[2022-05-13] MEDS: INSULIN REGULAR, HUMAN 100 UNIT/ML 3 ML VIAL SQ PRN ×2 (11:34→17:33)
[2022-05-13 12:00] VITALS: BP 100/50
--- NOTE | 2022-05-13 14:25 | NUR ---
RN NOTES PHARMACY DELIVERED DAKINS SOLUTION. WOUND CARE PROVIDED TO PATIENT. SACRAL WOUND PACKED AND COVERED. WILL CONTINUE TO MONITOR.
[2022-05-13 16:00] VITALS: BP 116/58
--- NOTE | 2022-05-13 18:41 | NUR ---
DIRECTOR DIGITAL COMMUNICATIONS CLOSING NOTES PATIENT SLEEPING IN BED, TRACH IN PLACE. STABLE ON MECHANICAL VENT, 100% O2 SAT. NO S/S OF RESPIRATORY DISTRESS. ALERT TO VERBAL AND TACTILE STIMULI. A/Ox2 ESTONIAN 1ST LANGUAGE, UNDERSTANDS SOME NEPALI. IV ACCESS R FA #20G S/L. PATIENT ON TELE MONITORING SHOWING SINUS RHYTHM HR 67. NO S/S OF CARDIAC DISTRESS. PATIENT ON G-TUBE FEEDING, GLUCERNA @ 55 ML/HR, TOLERATING WELL. HAS FC DRAINING YELLOW URINE 620 CC OUTPUT. SKIN ISSUES: SACRAL WOUND, L BACK SKIN TEAR, MULTIPLE SCABS. DRESSINGS INTACT. ALL PRESCRIBED MEDICATION ADMINISTERED. ALL NEEDS ATTENDED TO. SAFETY MEASURES MAINTAINED: BED LOCKED AND IN LOWEST POSITION, HOB ELEVATED, SIDE RAILS UPx2, CALL LIGHT WITHIN REACH. WILL ENDORSE TO NEXT SHIFT ANY ALEXIS.
[2022-05-13 20:00] VITALS: BP 110/72
--- NOTE | 2022-05-13 20:00 | NUR ---
APPLICATION DEVELOPMENT INTERN OPENING NOTES: RECEIVED PATIENT AWAKE IN BED, BED IN LOW POSITION, CALL LIGHTS WITHIN REACH, NO COMPLAIN OF PAIN AND DISCOMFORT AT THIS TIME, ON T-PIECE VENT SATURATING AT 100%, PATIENT ON TELE [id number], ON G TUBE FEEDING OF GLUCERNA @55ML/HR INFUSING WELL, HEAD OF THE BED TO REMAIN AT 45 DEGREE, ASPIRATION PRECAUTION, PATIENT ON CONDOM CATHETER- 100 CC URINE OUTPUT, PATIENT KEPT CLEAN AND DRY ALL NEEDS MET WILL CONTINUE TO MONITOR.
[2022-05-13] MEDS: TRAZODONE 50 MG TABLET PO SCH (22:27)
[2022-05-13] MEDS: ATORVASTATIN 40 MG TABLET GT SCH (22:27)
[2022-05-13] MEDS: INSULIN GLARGINE, 100 UNIT/ML CARTRIDGE SQ SCH (22:30)
[2022-05-14] VITALS: BP 96/64
[2022-05-14] MEDS: INSULIN REGULAR, HUMAN 100 UNIT/ML 3 ML VIAL SQ PRN (00:16)
[2022-05-14] MEDS: BLOOD SUGAR DIAGNOSTIC 1 EACH STRIP IN SCH ×4 (00:17→16:51)
--- NOTE | 2022-05-14 00:17 | NUR ---
RN NOTES: BLOOD SUGAR- 165/ 3 UBNITS REGULAR INSULIN GIVEN PER SLIDING SCALE.
[2022-05-14] MEDS: IPRATROPIUM NEB FS 0.5 MG/2.5 ML AMPUL.NEB NEB SCH ×4 (01:45→19:37)
[2022-05-14] MEDS: ALBUTEROL FS 2.5 MG/3 ML VIAL.NEB NEB SCH ×4 (01:45→19:37)
[2022-05-14 04:00] VITALS: BP 98/56
[2022-05-14 06:28] LABS: BASOPHILS # (AUTO) 0.1 K/uL (0.0-0.2); BASOPHILS % (AUTO) 0.7 % (0.0-2.0); EOSINOPHILS % (AUTO) 4.4 % (0.0-6.0); HEMATOCRIT 28 % (39-51); HEMOGLOBIN 9.1 g/dL (13.5-17.5); LYMPHOCYTES # (AUTO) 1.2 K/uL (0.8-4.8); LYMPHOCYTES % (AUTO) 15.1 % (20.0-44.0); MEAN CORPUSCULAR HGB CONC 33 g/dl (31.0-36.0); MEAN CORPUSCULAR VOLUME 87 fL (80-96); MONOCYTES # (AUTO) 0.6 K/uL (0.1-1.30); MONOCYTES % (AUTO) 7.5 % (2.0-12.0); NEUTROPHILS # (AUTO) 5.6 K/uL (1.8-8.9); NEUTROPHILS % (AUTO) 72.3 % (43.0-81.0); PLATELET COUNT (AUTO) 362 K/uL (150-450); RED BLOOD CELL COUNT(AUTO) 3.19 MIL/uL (4.5-6.0); WHITE BLOOD COUNT (AUTO) 7.8 K/uL (4.3-11.0)
--- NOTE | 2022-05-14 06:49 | NUR ---
RN NOTES: BLOOD SUGAR AT 0536-45 RECONNECT G TUBE FEEDING AND FLUSH WATER AND RE CHECK AFTER AT 0643 BLOOD SUGAR IS 144/ NO INSULIN GIVEN WILL CONTINUE TO MONITOR-
[2022-05-14 07:05] LABS: CREATININE 1.7 mg/dL (0.6-1.3); MAGNESIUM 2.2 mg/dL (1.8-2.4); PHOSPHORUS 4.2 mg/dL (2.5-4.9)
--- NOTE | 2022-05-14 07:54 | NUR ---
SHUTTLE TRUCK DRIVER CLOSING NOTES; RECEIVED PATIENT AWAKE IN BED, BED IN LOW POSITION CALL LIGHTS WITHIN REACH, NO COMPLAIN OF PAIN AND DISCOMFORT AT THIS TIME, ON [facility]ENT- ON T-PIECE, SATURATING WELL, PATIENT ON TELE MONITOR IN STABLE CONDITION, PATIENT IS A/OX2-3 SLOVAK SPEAKING, ON G TUBE FEEDING OF GLUCERNA @55/ML /HR INFUSING WELL, PATIENT KEPT CLEAN AND DRY ALL NEEDS MET WILL CONTINUE TO MONITOR.
--- NOTE | 2022-05-14 07:55 | NUR ---
STRUCTURAL DESIGN ENGINEER OPENING NOTES: RECEIVED PATIENT AWAKE IN BED, BED IN LOW POSITION, CALL LIGHTS WITHIN REACH, NO COMPLAIN OF PAIN AND DISCOMFORT AT THIS TIME, ON T-PIECE VENT SATURATING AT 100%, PATIENT ON TELE [id number], ON G TUBE FEEDING OF GLUCERNA @55ML/HR INFUSING WELL, HEAD OF THE BED TO REMAIN AT 45 DEGREE, ASPIRATION PRECAUTION, PATIENT ON PATIÑO, WILL CONTINUE TO MONITOR.
[2022-05-14 08:00] VITALS: BP 113/62
[2022-05-14] MEDS: ACETYLCYSTEINE 10% SOLN 400 MG/4 ML VIAL NEB SCH ×3 (08:37→23:27)
[2022-05-14] MEDS: ASPIRIN 81 MG TAB.CHEW GT SCH (08:49)
[2022-05-14] MEDS: NICOTINE PATCH (21MG) 21 MG PATCH.TD24 TD SCH (08:49)
[2022-05-14] MEDS: FERROUS SULFATE (325 MG) 325 MG/TAB TABLET GT SCH (08:49)
[2022-05-14] MEDS: ASCORBIC ACID 500 MG TABLET GT SCH (08:49)
[2022-05-14] MEDS: PANTOPRAZOLE 40 MG/PACK PACK GT SCH (08:49)
[2022-05-14] MEDS: FUROSEMIDE 40 MG TABLET GT SCH ×2 (08:49→16:07)
[2022-05-14] MEDS: MULTIVIT W/MINERALS 1 TAB TABLET GT SCH (08:50)
[2022-05-14] MEDS: DILTIAZEM HCL 30 MG TABLET GT SCH (08:50)
[2022-05-14] MEDS: DOCUSATE SODIUM LIQ 100 MG/10 ML UDC GT SCH (08:51)
[2022-05-14] MEDS: AMIODARONE HCL 200 MG TABLET GT SCH (08:51)
[2022-05-14] MEDS: HEPARIN SODIUM, PORCINE 5000 UNITS/1 ML VIAL SQ SCH ×2 (08:52→20:52)
[2022-05-14] MEDS: CHLORHEXIDINE GLUCONATE 15 ML UDC MM SCH ×2 (08:52→16:07)
[2022-05-14] MEDS: VANCOMYCIN 1 GM in IV D5W 250 ML IV SCH (08:54)
[2022-05-14] MEDS: DAKINS QUARTER STRENGTH (0.125%) 480 ML BOTTLE TOP SCH (08:57)
[2022-05-14] MEDS: MUPIROCIN OINT 2% 22 GM TUBE NS SCH ×2 (08:59→20:51)
[2022-05-14] MEDS: MEROPENEM 1 G in IV NS 0.9% 100 ML IV SCH ×2 (11:08→22:42)
[2022-05-14 12:00] VITALS: BP 133/75
[2022-05-14 16:00] VITALS: BP 118/66
[2022-05-14] MEDS: GLUCERNA 1.2 1,000 ML BOTTLE GT PRN (16:39)
--- NOTE | 2022-05-14 19:35 | NUR ---
LINE CREW SUPERVISOR CLOSING NOTES PATIENT AWAKE IN BED, HOOKED TO VENTILATOR AND TOLERATING CURRENT SETTINGS. PATIENT WITH TRACHEOSTOMY TUBE IN PLACE. ON G TUBE FEEDING OF GLUCERNA 55ML/HR, TOLERATING WELL. ON PATIÑO CATHETER, DRAINED 100 ML WITH COLOR YELLOW URINE OUTPUT. ON TELE MONITOR-SR 79. MEDICATIONS GIVEN SCHEDULED. NO C/O OF PAIN AND DISCOMFORT AT THIS TIME. SAFETY MEASURES MAINTAINED WITH BED ON LOWEST AND LOCKED POSITION. CALL LIGHT AND TRAY WITHIN EASY REACH. SIDE RAILS UP X 2. WILL ENDORSE TO THE NEXT SHIFT FOR ALEXIS.
--- NOTE | 2022-05-14 20:05 | NUR ---
RECEIVED PATIENT IN BED, ALERT/ORIENTED X2, PORTUGUESE SPEAKING ONLY, RESTLESS, TRACH DEPENDENT, NO RESPIRATORY DISTRESS, NOT IN APPARENT PAIN, PEG TUBE FEEDING INFUSING WELL, PATIÑO CATHETER DRAINING, KEPT AT HIGH BELL'S, KEPT SAFE, WILL CONTINUE TO MONITOR.
[2022-05-14 20:28] VITALS: BP 104/67
[2022-05-14] MEDS: TRAZODONE 50 MG TABLET PO SCH (21:01)
[2022-05-14] MEDS: ATORVASTATIN 40 MG TABLET GT SCH (21:01)
[2022-05-14] MEDS: INSULIN GLARGINE, 100 UNIT/ML CARTRIDGE SQ SCH (21:45)
[2022-05-15] VITALS: BP 111/62
[2022-05-15] MEDS: BLOOD SUGAR DIAGNOSTIC 1 EACH STRIP IN SCH ×5 (00:36→23:34)
[2022-05-15] MEDS: INSULIN REGULAR, HUMAN 100 UNIT/ML 3 ML VIAL SQ PRN ×5 (00:42→23:33)
[2022-05-15] MEDS: IPRATROPIUM NEB FS 0.5 MG/2.5 ML AMPUL.NEB NEB SCH ×4 (02:09→19:52)
[2022-05-15] MEDS: ALBUTEROL FS 2.5 MG/3 ML VIAL.NEB NEB SCH ×4 (02:09→19:51)
[2022-05-15 04:00] VITALS: BP 106/62
[2022-05-15 06:12] LABS: BASOPHILS % (AUTO) 0.1 % (0.0-2.0); HEMATOCRIT 26 % (39-51); HEMOGLOBIN 8.5 g/dL (13.5-17.5); LYMPHOCYTES # (AUTO) 0.6 K/uL (0.8-4.8); LYMPHOCYTES % (AUTO) 4.7 % (20.0-44.0); MEAN CORPUSCULAR HGB CONC 33 g/dl (31.0-36.0); MEAN CORPUSCULAR VOLUME 86 fL (80-96); MONOCYTES # (AUTO) 0.6 K/uL (0.1-1.30); MONOCYTES % (AUTO) 5.3 % (2.0-12.0); NEUTROPHILS # (AUTO) 10.8 K/uL (1.8-8.9); NEUTROPHILS % (AUTO) 89.9 % (43.0-81.0); PLATELET COUNT (AUTO) 365 K/uL (150-450); RED BLOOD CELL COUNT(AUTO) 3.01 MIL/uL (4.5-6.0)
--- NOTE | 2022-05-15 06:18 | NUR ---
ALERT/ORIENTED X2, RESTLESS, NO COMPLAIN OF PAIN, STABLE ON CPAP, SPO2 99%, GLUCERNA AT 55 ML/HR, TOLERATED WELL, NO ABDOMINAL DISTENTION, NO VOMITING, PATIÑO CATHETER DRAINING, ACCUCHECK, SLIDING SCALE, LANTUS 24 UNITS, DISCHARGE PLANNING.
[2022-05-15 06:32] LABS: CALCIUM, SERUM 9.7 mg/dL (8.5-10.1); CREATININE 1.8 mg/dL (0.6-1.3); MAGNESIUM 2.4 mg/dL (1.8-2.4); PHOSPHORUS 3.3 mg/dL (2.5-4.9); POTASSIUM 4.1 mmol/L (3.5-5.1)
[2022-05-15 07:00] VITALS: BP 107/62
--- NOTE | 2022-05-15 07:15 | NUR ---
GERONTOLOGY AIDE OPENING NOTES: RECEIVED PATIENT AWAKE IN BED, BED IN LOW POSITION, CALL LIGHTS WITHIN REACH, NO COMPLAIN OF PAIN AND DISCOMFORT AT THIS TIME, STABLE ON CPAP, SPO2 99%, GLUCERNA AT 55 ML/HR, TOLERATED WELL, NO ABDOMINAL DISTENTION, NO VOMITING, PATIÑO CATHETER DRAINING, ACCUCHECK, SLIDING SCALE, LANTUS 24 UNITS, DISCHARGE PLANNING NOTED. PATIENT ON ASPIRATION PRECAUTION, ON PATIÑO WELL, WILL CONTINUE TO MONITOR.
[2022-05-15] MEDS: ACETYLCYSTEINE 10% SOLN 400 MG/4 ML VIAL NEB SCH ×3 (07:51→23:42)
[2022-05-15] MEDS: FERROUS SULFATE (325 MG) 325 MG/TAB TABLET GT SCH (08:22)
[2022-05-15] MEDS: PANTOPRAZOLE 40 MG/PACK PACK GT SCH (08:22)
[2022-05-15] MEDS: NICOTINE PATCH (21MG) 21 MG PATCH.TD24 TD SCH (08:22)
[2022-05-15] MEDS: HEPARIN SODIUM, PORCINE 5000 UNITS/1 ML VIAL SQ SCH ×2 (08:23→20:35)
[2022-05-15] MEDS: FUROSEMIDE 40 MG TABLET GT SCH ×2 (08:23→17:35)
[2022-05-15] MEDS: DOCUSATE SODIUM LIQ 100 MG/10 ML UDC GT SCH (08:23)
[2022-05-15] MEDS: AMIODARONE HCL 200 MG TABLET GT SCH (08:24)
[2022-05-15] MEDS: CHLORHEXIDINE GLUCONATE 15 ML UDC MM SCH ×2 (08:24→17:35)
[2022-05-15] MEDS: DILTIAZEM HCL 30 MG TABLET GT SCH (08:25)
[2022-05-15] MEDS: ASCORBIC ACID 500 MG TABLET GT SCH (08:26)
[2022-05-15] MEDS: MULTIVIT W/MINERALS 1 TAB TABLET GT SCH (08:26)
[2022-05-15] MEDS: VANCOMYCIN 1 GM in IV D5W 250 ML IV SCH (08:26)
[2022-05-15] MEDS: MUPIROCIN OINT 2% 22 GM TUBE NS SCH ×2 (08:28→20:53)
[2022-05-15] MEDS: ASPIRIN 81 MG TAB.CHEW GT SCH (08:28)
[2022-05-15] MEDS: DAKINS QUARTER STRENGTH (0.125%) 480 ML BOTTLE TOP SCH (08:29)
[2022-05-15] MEDS: MEROPENEM 1 G in IV NS 0.9% 100 ML IV SCH ×2 (11:36→23:02)
[2022-05-15] MEDS: SCOPOLAMINE PATCH 1 MG/72HR TD SCH (12:07)
--- NOTE | 2022-05-15 18:36 | NUR ---
CONTINUOUS MINING MACHINE COMPANY MINER CLOSING NOTES PATIENT AWAKE IN BED, HOOKED TO VENTILATOR AND TOLERATING CURRENT SETTINGS. PATIENT WITH CPAP TUBE IN PLACE. ON G TUBE FEEDING OF GLUCERNA 60ML/HR, TOLERATING WELL. ON PATIÑO CATHETER, DRAINED 100 ML WITH COLOR YELLOW URINE OUTPUT. ON TELE MONITOR-SR 78. MEDICATIONS GIVEN SCHEDULED. NO C/O OF PAIN AND DISCOMFORT AT THIS TIME. SAFETY MEASURES MAINTAINED WITH BED ON LOWEST AND LOCKED POSITION. CALL LIGHT AND TRAY WITHIN EASY REACH. SIDE RAILS UP X 2. WILL ENDORSE TO THE NEXT SHIFT FOR ALEXIS.
--- NOTE | 2022-05-15 19:30 | NUR ---
CHEESEMAKER OPENING NOTES: RECEIVED PATIENT AWAKE IN BED. DAUGHTER AND AT BED SIDE. PATIENT IS A/O TIMES 4. NONVERBAL.NO PAIN NOTED. NO COMPLAIN OF PAIN AND DISCOMFORT AT THIS TIME. PATIENT ABLE TO MAKE NEEDS KNOWN IN SETSWANA LANGUAGE.PATIENT IS ON VENT AND TOLERATING WELL. PATIENT IS ON GTUBE GLUCERNA AT 60 ML/HR. TOLERATED WELL, NO ABDOMINAL DISTENTION, NO VOMITING NOTED. CHECKED THE GTUBE PLACEMENT INTACT AND PATENT. FLUSHING WELL. PATIÑO CATHETER INTACT AND DRAINING URINE BY GRAVITY. ALL SAFETY MEASURES IN PLACE. HOB ELEVATED FOR ASPIRATION PRECAUTION. BED LOCKED IN THE LOWEST POSITION. CALL LIGHT AND TABLE IN EASY CHECK. SIDE RAILS UP TIMES 2. CALL LIGHT IN EASY REACH. WILL CONTINUE TO MONITOR CLOSELY.
[2022-05-15 20:00] VITALS: BP 103/61
[2022-05-15] MEDS: GLUCERNA 1.2 1,000 ML BOTTLE GT PRN (20:52)
[2022-05-15] MEDS: ATORVASTATIN 40 MG TABLET GT SCH (21:23)
[2022-05-15] MEDS: TRAZODONE 50 MG TABLET PO SCH (21:23)
[2022-05-15] MEDS: INSULIN GLARGINE, 100 UNIT/ML CARTRIDGE SQ SCH (21:47)
[2022-05-16] MEDS: ALBUTEROL FS 2.5 MG/3 ML VIAL.NEB NEB SCH ×4 (01:44→20:28)
[2022-05-16] MEDS: IPRATROPIUM NEB FS 0.5 MG/2.5 ML AMPUL.NEB NEB SCH ×4 (01:44→20:28)
[2022-05-16 05:00] VITALS: BP 103/63
[2022-05-16] MEDS: INSULIN REGULAR, HUMAN 100 UNIT/ML 3 ML VIAL SQ PRN ×3 (05:36→18:18)
[2022-05-16 05:47] LABS: BASOPHILS % (AUTO) 0.3 % (0.0-2.0); EOSINOPHILS % (AUTO) 1.2 % (0.0-6.0); HEMATOCRIT 25 % (39-51); HEMOGLOBIN 8.1 g/dL (13.5-17.5); LYMPHOCYTES # (AUTO) 0.8 K/uL (0.8-4.8); LYMPHOCYTES % (AUTO) 8.6 % (20.0-44.0); MEAN CORPUSCULAR HGB CONC 32 g/dl (31.0-36.0); MEAN CORPUSCULAR VOLUME 87 fL (80-96); MONOCYTES # (AUTO) 0.7 K/uL (0.1-1.30); MONOCYTES % (AUTO) 7.1 % (2.0-12.0); NEUTROPHILS # (AUTO) 7.9 K/uL (1.8-8.9); NEUTROPHILS % (AUTO) 82.8 % (43.0-81.0); PLATELET COUNT (AUTO) 299 K/uL (150-450); RED BLOOD CELL COUNT(AUTO) 2.87 MIL/uL (4.5-6.0); WHITE BLOOD COUNT (AUTO) 9.5 K/uL (4.3-11.0)
[2022-05-16] MEDS: BLOOD SUGAR DIAGNOSTIC 1 EACH STRIP IN SCH ×3 (05:57→18:19)
[2022-05-16 06:10] LABS: CALCIUM, SERUM 9.6 mg/dL (8.5-10.1); CREATININE 1.6 mg/dL (0.6-1.3); MAGNESIUM 2.4 mg/dL (1.8-2.4); PHOSPHORUS 3.8 mg/dL (2.5-4.9); POTASSIUM 3.9 mmol/L (3.5-5.1)
--- NOTE | 2022-05-16 06:53 | NUR ---
DEV MANAGER NOTES: PATIENT AWAKE IN BED. PATIENT IS A/O TIMES 4. NONVERBAL.NO PAIN NOTED. NO COMPLAIN OF PAIN AND DISCOMFORT AT THIS TIME. PATIENT ABLE TO MAKE NEEDS KNOWN IN VIETNAMESE LANGUAGE.PATIENT IS ON CPAP AND TOLERATING WELL. PATIENT IS ON GTUBE GLUCERNA AT 60 ML/HR. TOLERATED WELL, NO ABDOMINAL DISTENTION, NO VOMITING NOTED. CHECKED THE GTUBE PLACEMENT INTACT AND PATENT. FLUSHING WELL. PATIÑO CATHETER INTACT AND DRAINING URINE BY GRAVITY. ALL DUE MEDS GIVEN ORDERED.ALL SAFETY MEASURES IN PLACE. HOB ELEVATED FOR ASPIRATION PRECAUTION. BED LOCKED IN THE LOWEST POSITION. CALL LIGHT AND TABLE IN EASY CHECK. SIDE RAILS UP TIMES 2. CALL LIGHT IN EASY REACH. WILL ENDORSE FOR ALEXIS.
[2022-05-16 07:00] VITALS: BP 104/59
--- NOTE | 2022-05-16 07:30 | NUR ---
CLOTH SHRINKING MACHINE OPERATOR HELPER OPENING NOTES: RECEIVED PATIENT AWAKE ON BED AND A/O X4, NONVERBAL. WITH NO COMPLAINT OF PAIN AND DISCOMFORT AT THIS TIME.PATIENT IS ON VENT CPAP AND TOLERATING WELL. ON TELE MONITOR CURRENTLY READING SINUS RHYTHM AT 92BPM. ON G-TUBE GLUCERNA AT 60 ML/HR TOLERATING WELL, NO ABDOMINAL DISTENTION, NO VOMITING NOTED. CHECKED THE GTUBE PLACEMENT INTACT AND PATENT. FLUSHING WELL. PATIÑO CATHETER INTACT AND DRAINING URINE BY GRAVITY. ALL SAFETY MEASURES IN PLACE. HOB ELEVATED FOR ASPIRATION PRECAUTION. BED LOCKED IN THE LOWEST POSITION. CALL LIGHT AND TABLE IN EASY CHECK. SIDE RAILS UP TIMES 2. CALL LIGHT IN EASY REACH. WILL CONTINUE TO MONITOR CLOSELY.
[2022-05-16] MEDS: ACETYLCYSTEINE 10% SOLN 400 MG/4 ML VIAL NEB SCH ×3 (07:44→23:32)
[2022-05-16] MEDS: AMIODARONE HCL 200 MG TABLET GT SCH (09:00)
[2022-05-16] MEDS: FUROSEMIDE 40 MG TABLET GT SCH ×2 (09:00→17:00)
[2022-05-16] MEDS: DILTIAZEM HCL 30 MG TABLET GT SCH (09:00)
[2022-05-16] MEDS: FERROUS SULFATE (325 MG) 325 MG/TAB TABLET GT SCH (09:50)
[2022-05-16] MEDS: HEPARIN SODIUM, PORCINE 5000 UNITS/1 ML VIAL SQ SCH ×2 (09:50→21:59)
[2022-05-16] MEDS: ASPIRIN 81 MG TAB.CHEW GT SCH (09:50)
[2022-05-16] MEDS: PANTOPRAZOLE 40 MG/PACK PACK GT SCH (09:50)
[2022-05-16] MEDS: MULTIVIT W/MINERALS 1 TAB TABLET GT SCH (09:50)
[2022-05-16] MEDS: DOCUSATE SODIUM LIQ 100 MG/10 ML UDC GT SCH (09:50)
[2022-05-16] MEDS: ASCORBIC ACID 500 MG TABLET GT SCH (09:50)
[2022-05-16] MEDS: CHLORHEXIDINE GLUCONATE 15 ML UDC MM SCH ×2 (09:51→17:01)
[2022-05-16] MEDS: DAKINS QUARTER STRENGTH (0.125%) 480 ML BOTTLE TOP SCH (09:52)
[2022-05-16] MEDS: NICOTINE PATCH (21MG) 21 MG PATCH.TD24 TD SCH (09:52)
[2022-05-16] MEDS: VANCOMYCIN 1 GM in IV D5W 250 ML IV SCH (09:57)
[2022-05-16] MEDS: MUPIROCIN OINT 2% 22 GM TUBE NS SCH ×2 (09:57→22:30)
[2022-05-16] MEDS: MEROPENEM 1 G in IV NS 0.9% 100 ML IV SCH (11:29)
--- NOTE | 2022-05-16 14:09 | NUR ---
RN NOTE PATIENT WAS VOMITING AND ZOFRAN IV WAS GIVEN PRN FOR NAUSEA AND VOMITING. WILL MONITOR.
--- NOTE | 2022-05-16 14:27 | NUR ---
RN NOTE PATIENT IS ASKING FOR MEDICATION FOR CONSTIPATION. MILK OF MAGNESIA WAS GIVEN PRN FOR CONSTIPATION. WILL MONITOR.
--- NOTE | 2022-05-16 14:30 | NUR ---
RN NOTE REPORTED TO DOCTOR LAURA THAT PATIENT'S SUPERVISOR PYROTECHNIC LOADING READING ST ELEVATION AND ORDERED STAT EKG AND SERUM POTASSIUM. WILL MONITOR PATIENT.
--- NOTE | 2022-05-16 17:00 | NUR ---
RN NOTE KUB WAS ORDERED BY DR. LAURA JACKSON FOR ABDOMINAL PAIN.
--- NOTE | 2022-05-16 17:15 | NUR ---
RN NOTE KUB RESULT IN - NEGATIVE.
[2022-05-16 17:54] LABS: CREATININE 1.6 mg/dL (0.6-1.3)
--- NOTE | 2022-05-16 19:30 | NUR ---
NETWORKER CLOSING NOTES: PATIENT RESTING ON BED AND A/O X4, NONVERBAL. WITH NO COMPLAINT OF PAIN AND DISCOMFORT AT THIS TIME. PATIENT IS ON VENT CPAP AND TOLERATING WELL. ON TELE MONITOR CURRENTLY READING SINUS RHYTHM AT 81BPM. ON G-TUBE GLUCERNA AT 40ML/HR TOLERATING WELL, NO ABDOMINAL DISTENTION, NO VOMITING NOTED. CHECKED THE GTUBE PLACEMENT INTACT AND PATENT. FLUSHING WELL. PATIÑO CATHETER INTACT AND DRAINING URINE BY GRAVITY. DUE MEDS GIVEN. ALL SAFETY MEASURES IN PLACE. HOB ELEVATED FOR ASPIRATION PRECAUTION. BED LOCKED IN THE LOWEST POSITION. CALL LIGHT AND TABLE IN EASY CHECK. SIDE RAILS UP TIMES 2. CALL LIGHT IN EASY REACH. WILL ENDORSE TO NEXT SHIFT FOR ALEXIS.
--- NOTE | 2022-05-16 19:35 | NUR ---
PT G-TUBE IS CLOGGED AND LEAKING WITH RESIDUAL OF 40ML. FLUSHED 30 ML OF WATER. AND IS CURRENTLY INFUSING WELL.
[2022-05-16 20:00] VITALS: BP_SYST 104; BP_SYST 122; BP_DIAS 61; BP_DIAS 75
[2022-05-16] MEDS: ATORVASTATIN 40 MG TABLET GT SCH (21:57)
[2022-05-16] MEDS: TRAZODONE 50 MG TABLET PO SCH (21:58)
[2022-05-16] MEDS: INSULIN GLARGINE, 100 UNIT/ML CARTRIDGE SQ SCH (22:40)
[2022-05-17] VITALS: BP 93/57
[2022-05-17] MEDS: MEROPENEM 1 G in IV NS 0.9% 100 ML IV SCH ×3 (00:04→22:37)
[2022-05-17] MEDS: BLOOD SUGAR DIAGNOSTIC 1 EACH STRIP IN SCH ×4 (00:33→17:31)
[2022-05-17] MEDS: INSULIN REGULAR, HUMAN 100 UNIT/ML 3 ML VIAL SQ PRN ×4 (00:37→17:30)
[2022-05-17] MEDS: ALBUTEROL FS 2.5 MG/3 ML VIAL.NEB NEB SCH ×4 (02:24→20:04)
[2022-05-17] MEDS: IPRATROPIUM NEB FS 0.5 MG/2.5 ML AMPUL.NEB NEB SCH ×4 (02:24→20:03)
[2022-05-17 04:00] VITALS: BP 91/56
--- NOTE | 2022-05-17 04:26 | NUR ---
RN OPENING NOTE PT IS AWAKE, A/O X 3-4, KYRGYZ, NON-VERBAL. ORIENTED TO STAFF AND UNIT. PT IN CPAP 100%, PORTEX 7.00, F102 35%, PEEP 5. TOLERATING WELL, BREATHING EVEN,& UNLABORED AT THIS TIME. PT IV ACCESS IS AT RLA #22G INTACT, PATENT & FLUSHES WELL. PT EXTERNAL DENTAL TECHNICIAN INSTRUCTOR WITH READING SR HR 81. G-TUBE IN PLACED. PATIÑO CATH IS IN PLACED, DRAINING TO YELLOW COLORED URINE. SKIN IS WARM & DRY. SAFETY MEASURES INITIATED, BED PLACED IN LOWEST, LOCKED POSITION, SIDERAILS X 4, BEDSIDE TABLE AND CALL LIGHT IN EASY REACH. TO CONTINUE TO MONITOR PT ACCORDINGLY. Addendum: 05/17/22 at 0428 by YOLY MOSQUERA RN OPENING NOTE DONE 05/16/22 @ [id number]
--- NOTE | 2022-05-17 06:39 | NUR ---
RN CLOSING NOTE Addendum: 05/17/22 at 0639 suleman MOSQUERA RN ERROR Addendum: 05/17/22 at 0643 suleman MOSQUERA RN ERROR
--- NOTE | 2022-05-17 06:43 | NUR ---
RN CLOSING NOTE PT IS DOZING INTERMITTENLY . RESPOSNIVE AND FOLLOWS VERBAL COMMAND. A/O X 3. PT ON CPAP 100% PORTEX 7.0, Fi02 35, PEEP 5. NO S/S OF RESPIRATORY DISTRESS NOTED. ON TELE MONITOR SR HR 84. IV SITE RLA #22G SL. G-TUBE IN PLACE, PATENT WITH NO RESIDUAL.PT PATIÑO CATH IS IN PLACED DRANING YELLOW COLORED URINE. MEDICATION ADMINISTERED ACCORDINGLY PER MD'S ORDER. SAFETY MEASURES IS MAINTAINED. BED AT ITS LOWEST AND LOCKED POSITION, SIDERAILS X 2, BEDSIDE TABLE AND CALL LIGHT IN EASY REACH. TO ENDORSE TO THE NEXT SHIFT FOR CONTINUITY OF CARE.
[2022-05-17 07:00] VITALS: BP 102/58
--- NOTE | 2022-05-17 07:30 | NUR ---
ACCOUNT SERVICES ASSOCIATE OPENING NOTES RECEIVED PATIENT ON BED AWAKE AND A/O X3-4. WITH TRACH ON CPAP TOLERATING CURRENT SETTINGS. NOT IN DISTRESS. WITH NO COMPLAINTS OF PAIN AT THIS TIME. ON TELE MONITOR CURRENTLY READING SINUS RHYTHM AT 86BPM. ON GLUCERNA FEEDING AT 40ML/HR VIA G-TUBE FEEDING TOLERATING WELL. WITH PATIÑO CATHETER IN PLACED DRAINING CLEAR YELLOW URINE VIA GRAVITY. SAFETY MEASURES IN PLACED. CALL LIGHT WITHIN REACH. BED ON LOWEST LOCKED POSITION, SIDE RAILS UP X2. WILL CONTINUE TO MONITOR.
[2022-05-17] MEDS: ACETYLCYSTEINE 10% SOLN 400 MG/4 ML VIAL NEB SCH ×2 (08:05→14:55)
[2022-05-17] MEDS: PANTOPRAZOLE 40 MG/PACK PACK GT SCH (08:20)
[2022-05-17] MEDS: DOCUSATE SODIUM LIQ 100 MG/10 ML UDC GT SCH (08:20)
[2022-05-17] MEDS: FERROUS SULFATE (325 MG) 325 MG/TAB TABLET GT SCH (08:20)
[2022-05-17] MEDS: ASCORBIC ACID 500 MG TABLET GT SCH (08:20)
[2022-05-17] MEDS: MULTIVIT W/MINERALS 1 TAB TABLET GT SCH (08:20)
[2022-05-17] MEDS: ASPIRIN 81 MG TAB.CHEW GT SCH (08:20)
[2022-05-17] MEDS: NICOTINE PATCH (21MG) 21 MG PATCH.TD24 TD SCH (08:20)
[2022-05-17] MEDS: CHLORHEXIDINE GLUCONATE 15 ML UDC MM SCH ×2 (08:27→16:34)
[2022-05-17] MEDS: MUPIROCIN OINT 2% 22 GM TUBE NS SCH ×2 (08:27→22:07)
[2022-05-17] MEDS: DAKINS QUARTER STRENGTH (0.125%) 480 ML BOTTLE TOP SCH (08:28)
[2022-05-17 08:52] LABS: BASOPHILS # (AUTO) 0.1 K/uL (0.0-0.2); BASOPHILS % (AUTO) 0.8 % (0.0-2.0); EOSINOPHILS % (AUTO) 2.1 % (0.0-6.0); HEMATOCRIT 23 % (39-51); HEMOGLOBIN 7.7 g/dL (13.5-17.5); LYMPHOCYTES # (AUTO) 1.1 K/uL (0.8-4.8); MEAN CORPUSCULAR HGB CONC 33 g/dl (31.0-36.0); MEAN CORPUSCULAR VOLUME 86 fL (80-96); MONOCYTES # (AUTO) 0.5 K/uL (0.1-1.30); MONOCYTES % (AUTO) 7.1 % (2.0-12.0); NEUTROPHILS # (AUTO) 5.2 K/uL (1.8-8.9); PLATELET COUNT (AUTO) 302 K/uL (150-450); RED BLOOD CELL COUNT(AUTO) 2.69 MIL/uL (4.5-6.0)
[2022-05-17] MEDS: AMIODARONE HCL 200 MG TABLET GT SCH (09:00)
[2022-05-17] MEDS: HEPARIN SODIUM, PORCINE 5000 UNITS/1 ML VIAL SQ SCH ×2 (09:00→22:04)
[2022-05-17] MEDS: FUROSEMIDE 40 MG TABLET GT SCH (09:00)
[2022-05-17] MEDS: DILTIAZEM HCL 30 MG TABLET GT SCH (09:00)
[2022-05-17 09:01] LABS: ABG OXYGEN SATURATION 94.6 % (92.0-98.5); ABG PO2 72.8 mmHg (75.0-100.0); COHb 0.3 % (0.5-1.5); MetHb 0.1 % (0.0-1.5); O2Hb 94.2 % (94.0-97.0); SITE, ABG Left Brachial
[2022-05-17 09:12] LABS: CREATININE 1.8 mg/dL (0.6-1.3); POTASSIUM 4.1 mmol/L (3.5-5.1)
[2022-05-17 09:16] LABS: MAGNESIUM 3.1 mg/dL (1.8-2.4); PHOSPHORUS 3.4 mg/dL (2.5-4.9)
[2022-05-17] MEDS: VANCOMYCIN 1 GM in IV D5W 250 ML IV SCH (09:55)
[2022-05-17 12:00] VITALS: BP 90/47
--- NOTE | 2022-05-17 15:35 | NUR ---
RN KWABENA CALLED FACILITY AND SPOKE TO JESSENIA MEADE. JESSENIA MEADE STATED THEY COULD NOT ACCEPT PATIENT ON COOL AEROSOL AT 8LPM. THEY WANT HIM TO BE STABLE ON COOL AEROSOL AT 5LPM. WILL INFORM RT. WILL MONITOR PATIENT.
[2022-05-17 16:00] VITALS: BP 100/64
--- NOTE | 2022-05-17 18:00 | NUR ---
RN NOTE TRANSPORTATION WAS HERE TO PICK-UP PATIENT. PATIENT'S O2 SAT DROPPING TO 80s. DISCHARGE WAS HELD. RT SUGGESTED TO PUT THE PATIENT BACK ON VENT BEFORE DISCHARGE. WILL FOLLOW-UP WITH DR. ARENAS TOMORROW.
[2022-05-17] MEDS: GLUCERNA 1.2 1,000 ML BOTTLE GT PRN (18:35)
--- NOTE | 2022-05-17 19:31 | NUR ---
GEAR MACHINE OPERATOR GENERAL CLOSING NOTES PATIENT ON BED AWAKE AND A/O X3-4. WITH TRACH ON COOL AEROSOL, FIO2 35% TOLERATING WELL. NOT IN DISTRESS. WITH NO COMPLAINTS OF PAIN AT THIS TIME. ON TELE MONITOR CURRENTLY READING SINUS RHYTHM AT 88BPM. ON GLUCERNA FEEDING AT 60ML/HR VIA G-TUBE FEEDING TOLERATING WELL. WITH PATIÑO CATHETER IN PLACED DRAINING CLEAR YELLOW URINE VIA GRAVITY. DUE MEDS GIVEN. SAFETY MEASURES IN PLACED. CALL LIGHT WITHIN REACH. BED ON LOWEST LOCKED POSITION, SIDE RAILS UP X2. WILL ENDORSE TO NEXT SHIFT FOR ALEXIS.
--- NOTE | 2022-05-17 20:00 | NUR ---
RN OPENING NOTE PATIENT AWAKE IN BED. A/OX3; NON-VERBAL BUT MOUTHS WORDS IN RESPONSE. NO S/S OF DISTRESS, BREATHING W/O DIFFICULTY ON COOL AEROSOL. LFA #22 SL INTACT AND PATENT. TELE READS SR 97. SAFETY MEASURES IN PLACE: BED LOCKED AND AT LOWEST POSITION, RAILS UP X2, CALL SANZ WITHIN REACH. WILL CONTINUE TO MONITOR PATIENT.
[2022-05-17] MEDS: ATORVASTATIN 40 MG TABLET GT SCH (22:00)
[2022-05-17] MEDS: TRAZODONE 50 MG TABLET PO SCH (22:01)
[2022-05-17] MEDS: INSULIN GLARGINE, 100 UNIT/ML CARTRIDGE SQ SCH (22:05)
[2022-05-18] MEDS: BLOOD SUGAR DIAGNOSTIC 1 EACH STRIP IN SCH ×4 (00:01→18:00)
[2022-05-18] MEDS: INSULIN REGULAR, HUMAN 100 UNIT/ML 3 ML VIAL SQ PRN ×3 (00:02→11:49)
[2022-05-18] MEDS: ACETYLCYSTEINE 10% SOLN 400 MG/4 ML VIAL NEB SCH ×3 (01:16→15:30)
[2022-05-18] MEDS: ALBUTEROL FS 2.5 MG/3 ML VIAL.NEB NEB SCH ×3 (01:17→13:08)
[2022-05-18] MEDS: IPRATROPIUM NEB FS 0.5 MG/2.5 ML AMPUL.NEB NEB SCH ×3 (01:17→13:08)
[2022-05-18 06:39] LABS: BASOPHILS # (AUTO) 0.1 K/uL (0.0-0.2); BASOPHILS % (AUTO) 1.1 % (0.0-2.0); EOSINOPHILS % (AUTO) 5.7 % (0.0-6.0); HEMATOCRIT 26 % (39-51); HEMOGLOBIN 8.4 g/dL (13.5-17.5); LYMPHOCYTES % (AUTO) 15.1 % (20.0-44.0); MEAN CORPUSCULAR HGB CONC 33 g/dl (31.0-36.0); MEAN CORPUSCULAR VOLUME 86 fL (80-96); MONOCYTES # (AUTO) 0.4 K/uL (0.1-1.30); MONOCYTES % (AUTO) 6.5 % (2.0-12.0); NEUTROPHILS # (AUTO) 4.7 K/uL (1.8-8.9); NEUTROPHILS % (AUTO) 71.6 % (43.0-81.0); PLATELET COUNT (AUTO) 319 K/uL (150-450); RED BLOOD CELL COUNT(AUTO) 2.97 MIL/uL (4.5-6.0); WHITE BLOOD COUNT (AUTO) 6.6 K/uL (4.3-11.0)
--- NOTE | 2022-05-18 06:42 | NUR ---
RN CLOSING NOTE PATIENT AWAKE IN BED. A/OX3. NO S/S OF DISTRESS, BREATHING WITHOUT DIFFICULTY ON COOL AEROSOL. RFA #22 SL INTACT AND PATENT. TELE READS SR 80. GLUCERNA 1.2 @40ML/HR. (PATIENT HAD ONE BOUT OF VOMITUS, FEEDING WAS STOPPED, BUT RESUMED AGAIN AT 40ML/HR.) SAFETY MEASURES IN PLACE: BED LOCKED AND AT LOWEST POSITION, RAILS UP X2, CALL SANZ WITHIN REACH. WILL ENDORSE TO DAY SHIFT FOR ALEXIS.
--- NOTE | 2022-05-18 07:00 | NUR ---
RN OPENING NOTE PATIENT AWAKE IN BED. A/OX3; NO S/S OF DISTRESS, BREATHING W/O DIFFICULTY ON COOL AEROSOL. LFA #22 SL INTACT AND PATENT. TELE READS SR 98. SAFETY MEASURES IN PLACE: BED LOCKED AND AT LOWEST POSITION, RAILS UP X2, CALL SANZ WITHIN REACH. WILL CONTINUE TO MONITOR PATIENT.
[2022-05-18 07:02] LABS: CREATININE 1.8 mg/dL (0.6-1.3); POTASSIUM 3.5 mmol/L (3.5-5.1)
[2022-05-18 08:00] VITALS: BP 114/67
[2022-05-18] MEDS: DOCUSATE SODIUM LIQ 100 MG/10 ML UDC GT SCH (08:19)
[2022-05-18] MEDS: MULTIVIT W/MINERALS 1 TAB TABLET GT SCH (08:21)
[2022-05-18] MEDS: DILTIAZEM HCL 30 MG TABLET GT SCH (08:21)
[2022-05-18] MEDS: CHLORHEXIDINE GLUCONATE 15 ML UDC MM SCH ×2 (08:21→17:00)
[2022-05-18] MEDS: NICOTINE PATCH (21MG) 21 MG PATCH.TD24 TD SCH (08:21)
[2022-05-18] MEDS: FERROUS SULFATE (325 MG) 325 MG/TAB TABLET GT SCH (08:21)
[2022-05-18] MEDS: ASCORBIC ACID 500 MG TABLET GT SCH (08:22)
[2022-05-18] MEDS: ASPIRIN 81 MG TAB.CHEW GT SCH (08:22)
[2022-05-18] MEDS: PANTOPRAZOLE 40 MG/PACK PACK GT SCH (08:22)
[2022-05-18] MEDS: AMIODARONE HCL 200 MG TABLET GT SCH (08:22)
[2022-05-18] MEDS: DAKINS QUARTER STRENGTH (0.125%) 480 ML BOTTLE TOP SCH (08:30)
[2022-05-18] MEDS: MUPIROCIN OINT 2% 22 GM TUBE NS SCH (08:30)
[2022-05-18] MEDS: HEPARIN SODIUM, PORCINE 5000 UNITS/1 ML VIAL SQ SCH (08:51)
[2022-05-18] MEDS ORDERED: VANCOMYCIN HCL 0.75 GM in IV D5W 250 ML IV SCH (09:00)
[2022-05-18] MEDS: MEROPENEM 1 G in IV NS 0.9% 100 ML IV SCH (11:09)
[2022-05-18] MEDS: SCOPOLAMINE PATCH 1 MG/72HR TD SCH (11:37)
[2022-05-18 12:00] VITALS: BP 108/62
--- NOTE | 2022-05-18 17:05 | NUR ---
SUGARCANE RESEARCH TECHNICIANAIRCRAFT SKIN BURNISHER NOTES PATIENT DISCHARGED TO [facility] IN STABLE CONDITION. A/O X3. [place] SPEAKING BUT ABLE TO MAKE THINGS KNOWN THRU DAUGHTER IN PROCESS INSPECTOR. PATIENT'S BELONGINGS WERE COMPLETE--ALL ACCOUNTED FOR. IV ACCESS REMOVED-CDI, PATIÑO CATHETER REMOVED WELL REQUESTED BY THE FAMILY, PATIENT VOIDED. PATIENT NOT IN DISTRESS. WITH NO COMPLAINTS OF PAIN AT THIS TIME. TELE MONITOR READING SINUS RHYTHM AT 89BPM, PRIOR TO REMOVAL AND RETURNED TO TELEMETRY STAFF. PATIENT WAS GIVEN DISCHARGE INSTRUCTIONS THRU DAUGHTER IN PROCESS INSPECTOR-VERBALLY AND IN WRITTEN FORM. PATIENT LEFT IN STABLE CONDITION VIA [place] WITH TWO hand sewer & PATIENT'S . CHARGE NURSE AWARE OF THE DISCHARGE.
== END 2022-05-18 17:00 | DRG 710 ==
LOC: ER 23:04 → TELE 05-11 01:57
PROVIDERS: ADMIT Internal Medicine
PROC: 5A1955Z Respiratory Ventilation, Greater than 96 Consecutive Hours (ICD-10-PCS; principal; 2022-05-11)
PROC: 0KBN0ZZ Excision of Right Hip Muscle, Open Approach (ICD-10-PCS; 2022-05-12)
PROC: 0KBP0ZZ Excision of Left Hip Muscle, Open Approach (ICD-10-PCS; 2022-05-12)
DX: A41.9 Sepsis, unspecified organism (principal); N17.0 Acute kidney failure with tubular necrosis; J90 Pleural effusion, not elsewhere classified; L89.154 Pressure ulcer of sacral region, stage 4; I13.0 Hypertensive heart and chronic kidney disease with heart failure and stage 1 through stage 4 chronic kidney disease, or unspecified chronic kidney disease; E44.1 Mild protein-calorie malnutrition; E87.4 Mixed disorder of acid-base balance; I50.32 Chronic diastolic (congestive) heart failure; Z93.0 Tracheostomy status; Z99.11 Dependence on respirator [ventilator] status; J96.10 Chronic respiratory failure, unspecified whether with hypoxia or hypercapnia; E87.1 Hypo-osmolality and hyponatremia; E11.22 Type 2 diabetes mellitus with diabetic chronic kidney disease; D64.9 Anemia, unspecified; J93.9 Pneumothorax, unspecified; T17.990A Other foreign object in respiratory tract, part unspecified in causing asphyxiation, initial encounter; X58.XXXA Exposure to other specified factors, initial encounter; Y93.9 Activity, unspecified; Y92.89 Other specified places as the place of occurrence of the external cause; N39.0 Urinary tract infection, site not specified; Z68.1 Body mass index [BMI] 19.9 or less, adult; N18.9 Chronic kidney disease, unspecified; R13.10 Dysphagia, unspecified; Z95.1 Presence of aortocoronary bypass graft; Z93.1 Gastrostomy status; Z79.82 Long term (current) use of aspirin; Z79.84 Long term (current) use of oral hypoglycemic drugs; I25.10 Atherosclerotic heart disease of native coronary artery without angina pectoris; E88.09 Other disorders of plasma-protein metabolism, not elsewhere classified; Z79.4 Long term (current) use of insulin; L90.5 Scar conditions and fibrosis of skin; Z95.5 Presence of coronary angioplasty implant and graft
CPT/HCPCS: 31720; 36415; 36600; 71045-TC; 74018; 76770-TC; 80048-TC; 80076-TC; 80202-TC; 81001; 82570-TC; 82803-TC; 82962-TC; 83605-TC; 83735-TC; 83880; 84100-TC; 84300-TC; 84484-TC; 85025-TC; 85730-TC; 87040-TC; 87081-TC; 87086-TC; 94002-TC; 94003-TC; 94640-TC; 94664-TC; 94760-TC; 94762-TC; 94799-TC; A4623; A6253; A6403; A7526; C9113; C9803; G0378; J1644; J1815; J2185; J2405; J3370; J3490; J7030; J7040; J7060